=== PATIENT | male | born 1945 | race Caucasian/White ===

== ENCOUNTER 2018-09-15 01:27 | Outpatient (CLI) | payer MEDICARE, BC, SELFPAY ==
--- NOTE | 2018-09-15 09:09 | DI.RAD_ITS ---
SYMPTOM/DIAGNOSIS: KIDNEY STONE, N20.0 KUB: Comparison CT scan is 06/28/17. Comparison xrays of the abdomen are 10/10/16 and . There do appear to be two tiny calcifications overlying the left renal shadow which may represent non obstructing stones. No calcifications are seen overlying the right renal shadow. In the pelvis, there is again seen a 4 mm. calcification overlying the right sacrum. It is essentially unchanged in location. This calcification was present on the xray from 03/17/18 but was not seen on the xray of the abdomen from 10/10/16. This may represent a persistent distal right ureteral stone. The other calcifications seen in the pelvis appear stable and are most consistent with phleboliths. IMPRESSION: Persistent 4 mm. calcification overlying the right sacrum suspicious for a distal ureteral stone. Renal colic CT may be considered for further evaluation.
== END 2018-09-15 01:47 ==
PROVIDERS: Visit Provider Nurse Practitioner Gerontology
DX: N20.0 Calculus of kidney (principal)
CPT/HCPCS: 99213; 74018

== ENCOUNTER 2018-10-26 20:38 | Emergency (ER) | payer MEDICARE, BC, SELFPAY ==
[2018-10-26] VITALS (19 sets, daily range): BP systolic 124–159; BP diastolic 65–100; PULSE 61–77; RESP 11–23; TEMP 36.8; O2SAT 94–99
--- NOTE | 2018-10-26 20:49 | W.ED.GENAD ---
Discharge Plan Disposition Patient Disposition: HOME Condition: Improving Discharge Details Chief Complaint: Allergic Clinical Impression: Allergic reaction Primary Care Provider: [facility] ED Provider: Shira Haynes Home Meds and New Rx's Prescriptions: Continued Vesicare 5 mg tablet 5 mg PO DAILY Qty: 90 RF: 3 aspirin [Aspir-81] 81 MG tablet,delayed release (DR/EC) 81 mg PO DAILY RF: 0 simvastatin 20 MG tablet 20 mg PO DAILY RF: 0 nitroglycerin [Nitrostat] 0.4 MG tablet, sublingual 0.4 mg PO PRN PRNRF: 0 albuterol sulfate 8.5 GM HFA aerosol inhaler 2 puff Inhalation PRN PRNRF: 0 omeprazole 20 MG tablet,delayed release (DR/EC) 20 mg PO DAILY PRNRF: 0 sildenafil [Viagra] 100 MG tablet 50 mg PO PRN PRNRF: 0 cholecalciferol (vitamin D3) [Vitamin D3] 2,000 UNIT capsule 2,000 unit PO DAILY RF: 0 Discharge Instructions Instructions: General Allergic Reaction (ED) Additional Instructions: Labs and EKG are reassuring tonight. Your recurrent symptoms are most consistent with allergic reaction, please keep a journal of symptoms and what you were exposed to/had to eat around the time of onset. If you develop swelling of your tongue, rash, shortness of breath, difficulty breathing or other new/worsening symptoms please seek care urgently once again. Please follow up with primary care next week for reevaluation. Referrals: [facility] [Primary Care Provider] - Medical Decision Making Patient 73-year-old male presenting today with chief complaint of left lower lip swelling. He reports that that the symptoms began early this afternoon. This is the fourth time in the past month that he has had such symptoms. He was seen by his primary care who was concerned that this may have been allergic reaction to medication. He had been on amlodipine but this was stopped. States that this has occurred twice after eating skittles. Is unclear if he had them the other 2 times that he had the symptoms. Patient is concerned that this may be stroke versus cardiac etiology. He denies any chest pain or shortness of breath. He is endorsing feeling dizzy. When I asked about this further, he reports that he feels like he is in a fog. Denies any headache, visual changes. No neurologic deficit is noted on exam. Cranial nerves II through XII are intact. No intraoral lesions. Swelling is localized. No stridor or wheezing. Lungs are clear. I advised that this is most consistent with allergic reaction, likely associated with him eating skittles. However, with his fogginess also obtain baseline labs and EKG EKG reviewed by Dr. Chris, compared to previous. Patient in NSR with rate 68, RBBB. Unchanged from previous. Laboratory evaluation reassuring. Alk phos is slightly elevated but this is been noted previously. Troponin is less than 0.02. Given the length of symptoms, I do not feel that repeat is appropriate at this time. Advised that he keep a log regarding what he is eating and when the symptoms come on. When he has had this previously, symptoms have spontaneously self resolved. We did discuss treatment as the patient drove himself here, and I feel that giving him Benadryl prior to driving would be judicious. I do not feel the patient warrants steroids at this time particularly as this tends a sterile for resolved in a few hours. He was given strict return precautions. Advised that he contact primary care to discuss symptoms tomorrow. All of his questions and concerns were addressed and he is in agreement with this plan. HPI General Mode of arrival: ambulatory. Date/Time Provider Initiated Documentation: 10/26/18 20:48. Limitations to Documentation: no limitations. Information obtained by: patient. History of Present Illness 73 year old M presents to the emergency department with the chief complaint of swelling left lower lip, described as moderate, and is localized to the face. Patient reports no radiation. Patient started experiencing this hour(s) and it has been constant. No relieving factors improve symptom(s), Other factors that worsen symptoms (unknown exposure) . Patient notes other (endorses dizziness); denies chest pain, cough, fever/chills, loss of appetite, nausea/vomiting and rash. Patient did receive the following treatments prior to arrival, none Related Data Home Medications Medication Instructions Recorded Confirmed albuterol sulfate 2 puff INHALATION PRN PRN 09/28/13 10/26/18 aspirin [Aspir-81] 81 mg PO DAILY 09/28/13 10/26/18 nitroglycerin [Nitrostat] 0.4 mg PO PRN PRN 09/28/13 10/26/18 omeprazole 20 mg PO DAILY PRN 09/28/13 10/26/18 simvastatin 20 mg PO DAILY 09/28/13 10/26/18 sildenafil [Viagra] 50 mg PO PRN PRN 10/22/15 10/26/18 cholecalciferol (vitamin D3) 2,000 unit PO DAILY 06/28/17 10/26/18 [Vitamin D3] solifenacin 5 mg tablet 5 mg PO DAILY #90 tab 09/15/18 10/26/18 Previous Rx's Medication Instructions Recorded solifenacin 5 mg tablet 5 mg PO DAILY #90 tab 09/15/18 Allergies Allergy/AdvReac Type Severity Reaction Status Date / Time celecoxib [From Celebrex] AdvReac Severe Severe rash Unverified 03/17/18 14:21 ibuprofen [From Advil] AdvReac Intermediate upset Unverified 03/17/18 14:21 stomach Review of Systems Constitutional Reports as per HPI, Denies chills, Denies fever(s), Denies headache(s) and Denies poor appetite Eyes Reports as per HPI, Denies eye discharge and Denies irritation ENT Reports as per HPI, Denies dry mouth, Denies otalgia, Denies headache(s), Denies hoarseness, Reports lip swelling, Denies mouth lesions, Denies mouth pain, Denies nasal discharge, Denies sore throat, Denies throat swelling and Denies tongue swelling Cardiovascular Reports as per HPI, Denies chest pain, Denies dyspnea and Denies dyspnea on exertion Respiratory Reports as per HPI, Denies cough, Denies dyspnea and Denies dyspnea on exertion Gastrointestinal Reports as per HPI, Denies abdominal pain, Denies change in bowel habits, Denies nausea and Denies vomiting Integumentary/Breasts Reports as per HPI and Denies rash Neurologic Denies headache(s) Allergic/Immunologic Reports lip swelling, Denies throat swelling and Denies tongue swelling ON LICENSE OF [facility] Medical History Atrial fibrillation CAD (coronary artery disease), [place] coronary artery GERD (gastroesophageal reflux disease) Hyperlipidemia DIXIE (obstructive sleep apnea) Surgical History Cholecystectomy Coronary Stent ERCP Hernia Repair, Incisional Social History Smoking/Tobacco Use Status: Former Tobacco Use Exam Const General: cooperative, healthy appearing, comfortable, no acute distress, well developed and well groomed Nutritional Appearance: average body habitus and well nourished Orientation: alert and awake [facility] Head: normal to inspection, normocephalic and atraumatic Ears: hearing grossly normal bilaterally, external ears normal and TM's normal bilaterally General nose exam: external nose normal and nares normal Face and sinus: normal facial exam, sinuses nontender and face symmetric Mouth: oral mucosae normal, lip abnormal (Swelling noted to the left lower lip.), tongue normal, oropharynx normal and moist mucous membranes Teeth and gingiva: dentition normal Throat: posterior oropharynx normal, tonsils normal and uvula midline Eyes General: appearance normal, both eyes and all related structures Neck Neck: normal visual inspection, full ROM, no lymphadenopathy and no meningeal signs Resp Effort & Inspection: normal respiratory effort, able to speak in complete sentences and no respiratory distress Auscultation: clear to auscultation bilaterally, no rales, no rhonchi and no wheezes Cardio Rate: regular rate Rhythm: regular rhythm Heart Sounds: S1 normal and S2 normal Skin General skin exam: no rashes or lesions noted Neuro General: alert and awake Cognition: normal cognition Speech: speech normal Gait: normal gait Psych Appearance: grossly normal and well kempt Mental Status: mental status grossly normal Speech and Movement: speech and movement normal
--- NOTE | 2018-10-26 21:37 | ED.GENADUL_ITS ---
Discharge Plan Disposition Patient Disposition: HOME Condition: Improving Discharge Details Chief Complaint: Allergic Clinical Impression: Allergic reaction Primary Care Provider: [facility],[place] ED Provider: Shira Haynes Home Meds and New Rx's Prescriptions: Continued Vesicare 5 mg tablet 5 mg PO DAILY Qty: 90 RF: 3 aspirin [Aspir-81] 81 MG tablet,delayed release (DR/EC) 81 mg PO DAILY RF: 0 simvastatin 20 MG tablet 20 mg PO DAILY RF: 0 nitroglycerin [Nitrostat] 0.4 MG tablet, sublingual 0.4 mg PO PRN PRNRF: 0 albuterol sulfate 8.5 GM HFA aerosol inhaler 2 puff Inhalation PRN PRNRF: 0 omeprazole 20 MG tablet,delayed release (DR/EC) 20 mg PO DAILY PRNRF: 0 sildenafil [Viagra] 100 MG tablet 50 mg PO PRN PRNRF: 0 cholecalciferol (vitamin D3) [Vitamin D3] 2,000 UNIT capsule 2,000 unit PO DAILY RF: 0 Discharge Instructions Instructions: General Allergic Reaction (ED) Additional Instructions: Labs and EKG are reassuring tonight. Your recurrent symptoms are most consistent with allergic reaction, please keep a journal of symptoms and what you were exposed to/had to eat around the time of onset. If you develop swelling of your tongue, rash, shortness of breath, difficulty breathing or other new/worsening symptoms please seek care urgently once again. Please follow up with primary care next week for reevaluation. Referrals: [facility],[place] [Primary Care Provider] - Medical Decision Making Patient 73-year-old male presenting today with chief complaint of left lower lip swelling. He reports that that the symptoms began early this afternoon. This is the fourth time in the past month that he has had such symptoms. He was seen by his primary care who was concerned that this may have been allergic reaction to medication. He had been on amlodipine but this was stopped. States that this has occurred twice after eating skittles. Is unclear if he had them the other 2 times that he had the symptoms. Patient is concerned that this may be stroke versus cardiac etiology. He denies any chest pain or shortness of breath. He is endorsing feeling dizzy. When I asked about this further, he reports that he feels like he is in a fog. Denies any headache, visual changes. No neurologic deficit is noted on exam. Cranial nerves II through XII are intact. No intraoral lesions. Swelling is localized. No stridor or wheezing. Lungs are clear. I advised that this is most consistent with allergic reaction, likely associated with him eating skittles. However, with his fogginess also obtain baseline labs and EKG EKG reviewed by Dr. Chris, compared to previous. Patient in NSR with rate 68, RBBB. Unchanged from previous. Laboratory evaluation reassuring. Alk phos is slightly elevated but this is been noted previously. Troponin is less than 0.02. Given the length of symptoms, I do not feel that repeat is appropriate at this time. Advised that he keep a log regarding what he is eating and when the symptoms come on. When he has had this previously, symptoms have spontaneously self resolved. We did discuss treatment as the patient drove himself here, and I feel that giving him Benadryl prior to driving would be judicious. I do not feel the patient warrants steroids at this time particularly as this tends a sterile for resolved in a few hours. He was given strict return precautions. Advised that he contact primary care to discuss symptoms tomorrow. All of his questions and concerns were addressed and he is in agreement with this plan. HPI General Mode of arrival: ambulatory . Date/Time Provider Initiated Documentation: 10/26/18 20:48 . Limitations to Documentation: no limitations . Information obtained by: patient . History of Present Illness 73 year old M presents to the emergency department with the chief complaint of swelling left lower lip, described as moderate, and is localized to the face. Patient reports no radiation. Patient started experiencing this hour(s) and it has been constant. No relieving factors improve symptom(s), Other factors that worsen symptoms (unknown exposure) . Patient notes other (endorses dizziness); denies chest pain, cough, fever/chills, loss of appetite, nausea/vomiting and rash. Patient did receive the following treatments prior to arrival, none Related Data Home Medications Medication Instructions Recorded Confirmed albuterol sulfate 2 puff INHALATION PRN PRN 09/28/13 10/26/18 aspirin [Aspir-81] 81 mg PO DAILY 09/28/13 10/26/18 nitroglycerin [Nitrostat] 0.4 mg PO PRN PRN 09/28/13 10/26/18 omeprazole 20 mg PO DAILY PRN 09/28/13 10/26/18 simvastatin 20 mg PO DAILY 09/28/13 10/26/18 sildenafil [Viagra] 50 mg PO PRN PRN 10/22/15 10/26/18 cholecalciferol (vitamin D3) 2,000 unit PO DAILY 06/28/17 10/26/18 [Vitamin D3] solifenacin 5 mg tablet 5 mg PO DAILY #90 tab 09/15/18 10/26/18 Previous Rx's Medication Instructions Recorded solifenacin 5 mg tablet 5 mg PO DAILY #90 tab 09/15/18 Allergies Allergy/AdvReac Type Severity Reaction Status Date / Time celecoxib [From Celebrex] AdvReac Severe Severe rash Unverified 03/17/18 14:21 ibuprofen [From Advil] AdvReac Intermediate upset Unverified 03/17/18 14:21 stomach Review of Systems Constitutional Reports as per HPI, Denies chills, Denies fever(s), Denies headache(s) and Denies poor appetite Eyes Reports as per HPI, Denies eye discharge and Denies irritation ENT Reports as per HPI, Denies dry mouth, Denies otalgia, Denies headache(s), Denies hoarseness, Reports lip swelling, Denies mouth lesions, Denies mouth pain, Denies nasal discharge, Denies sore throat, Denies throat swelling and Denies tongue swelling Cardiovascular Reports as per HPI, Denies chest pain, Denies dyspnea and Denies dyspnea on exertion Respiratory Reports as per HPI, Denies cough, Denies dyspnea and Denies dyspnea on exertion Gastrointestinal Reports as per HPI, Denies abdominal pain, Denies change in bowel habits, Denies nausea and Denies vomiting Integumentary/Breasts Reports as per HPI and Denies rash Neurologic Denies headache(s) Allergic/Immunologic Reports lip swelling, Denies throat swelling and Denies tongue swelling [facility] Medical History Atrial fibrillation CAD (coronary artery disease), [place] coronary artery GERD (gastroesophageal reflux disease) Hyperlipidemia DIXIE (obstructive sleep apnea) Surgical History Cholecystectomy Coronary Stent ERCP Hernia Repair, Incisional Social History Smoking/Tobacco Use Status: Former Tobacco Use Exam Const General: cooperative, healthy appearing, comfortable, no acute distress, well developed and well groomed Nutritional Appearance: average body habitus and well nourished Orientation: alert and awake [facility] Head: normal to inspection, normocephalic and atraumatic Ears: hearing grossly normal bilaterally, external ears normal and TM's normal bilaterally General nose exam: external nose normal and nares normal Face and sinus: normal facial exam, sinuses nontender and face symmetric Mouth: oral mucosae normal, lip abnormal (Swelling noted to the left lower lip.), tongue normal, oropharynx normal and moist mucous membranes Teeth and gingiva: dentition normal Throat: posterior oropharynx normal, tonsils normal and uvula midline Eyes General: appearance normal, both eyes and all related structures Neck Neck: normal visual inspection, full ROM, no lymphadenopathy and no meningeal signs Resp Effort & Inspection: normal respiratory effort, able to speak in complete sentences and no respiratory distress Auscultation: clear to auscultation bilaterally, no rales, no rhonchi and no wheezes Cardio Rate: regular rate Rhythm: regular rhythm Heart Sounds: S1 normal and S2 normal Skin General skin exam: no rashes or lesions noted Neuro General: alert and awake Cognition: normal cognition Speech: speech normal Gait: normal gait Psych Appearance: grossly normal and well kempt Mental Status: mental status grossly normal Speech and Movement: speech and movement normal
[2018-10-26 21:51] LABS: Abs Immature Grans 0.02 k/cumm (0.0-0.09); Absolute Basophil Count 0.03 k/cumm (0.0-0.2); Absolute Eosinophil Count 0.17 k/cumm (0.0-0.7); Absolute Lymphocyte Count 2.34 k/cumm (1.2-3.4); Absolute Monocyte Count 0.73 k/cumm (0.11-0.7); Absolute Neutrophil Count 3.53 k/cumm (1.2-6.7); Basophils % 0.4; Eosinophils % 2.5; HCT 45.6 % (40.0-50.0); HGB 15.9 g/dL (13.5-17.5); Immature Grans % 0.3; Lymphocytes % 34.3; Mean Corp. HGB Concentration 34.9 g/dL (32.0-36.0); Mean Corpuscular Volume 91.8 fL (80-95); Mean Platelet Volume 9.5 fL (8.0-11.0); Monocytes % 10.7; Neutrophils % 51.8; Platelet Count 190 x1000/uL (130-400); RBC 4.97 m/cumm (4.50-6.00); RBC Distribution Width 12.4 % (11.8-14.1); White Blood Cell Count 6.82 k/cumm (4.4-10.8)
[2018-10-26 22:09] LABS: ALT 27 U/L (12-78); AST 15 U/L (15-37); Albumin 3.5 g/dL (3.4-5.0); Alkaline Phosphatase 127 U/L (46-116); Anion Gap 6.4 mmol/L (3-11); BUN 19 mg/dL (7-18); Bilirubin, Total 0.5 mg/dL (0.2-1.0); CO2 29.6 mmol/L (21.0-32.0); CREATININE 1.01 mg/dL (0.70-1.30); Calcium 8.5 mg/dL (8.5-10.1); Chloride 105 mmol/L (98-107); Glucose 96 mg/dL (70-100); Potassium 4.2 mmol/L (3.5-5.1); Sodium 141 mmol/L (136-145); Total Protein 6.7 g/dL (6.4-8.2)
[2018-10-26 22:18] LABS: Troponin I < 0.02 ng/mL (0.00-0.06)
== END 2018-10-26 22:40 | disposition home or self-care (01) ==
PROVIDERS: Emergency Provider Physician Assistant
DX: T78.40XA Allergy, unspecified, initial encounter (principal); R22.0 Localized swelling, mass and lump, head; R42 Dizziness and giddiness
CPT/HCPCS: 36415; 80053; 93005; 99284; 83735; 84439; 84443; 84484; 85025; 93010

== ENCOUNTER 2019-02-02 12:06 | Emergency (ER) | payer MEDICARE, BC, SELFPAY ==
--- NOTE | 2019-02-02 12:11 | W.ED.GENAD ---
Discharge Plan Disposition Patient Disposition: HOME Condition: Stable Discharge Details Chief Complaint: FlankPain Clinical Impression: Calculus of right ureter Primary Care Provider: [place], [place] ED Provider: Marlon Fang Home Meds and New Rx's Prescriptions: New oxycodone 5 mg tablet 5 mg PO Q6H PRN (Reason: pain) Qty: 10 RF: 0 ondansetron 4 mg tablet,disintegrating 4 mg PO TID PRN (Reason: nausea and vomiting) 5 Days Qty: 20 RF: 0 tamsulosin [Flomax] 0.4 mg capsule 0.4 mg PO DAILY Qty: 14 RF: 0 No Action Vesicare 5 mg tablet 5 mg PO DAILY Qty: 90 RF: 3 simvastatin 20 MG tablet 20 mg PO DAILY RF: 0 nitroglycerin [Nitrostat] 0.4 MG tablet, sublingual 0.4 mg PO PRN PRNRF: 0 albuterol sulfate 8.5 GM HFA aerosol inhaler 2 puff Inhalation PRN PRNRF: 0 omeprazole 20 MG tablet,delayed release (DR/EC) 20 mg PO PRN PRNRF: 0 sildenafil [Viagra] 100 MG tablet 50 mg PO PRN PRNRF: 0 cholecalciferol (vitamin D3) [Vitamin D3] 2,000 UNIT capsule 2,000 unit PO DAILY RF: 0 clopidogrel [Plavix] 75 mg Tablet 75 mg PO DAILY AM RF: 0 vit [id number] 100 unit- 12.5 mg Capsule RF: 0 Discharge Instructions Instructions: Kidney Stones (ED) Additional Instructions: Follow up with your urologist if you have fevers, persistent vomit or uncontrolled pain despite medications return to the emergency department Medical Decision Making 73 yo male who states he has a hx of kidney stones comes in with right mid and lower back pain that started acutely this morning and feels similar to his prior kidney stones. Denies any pain now and has had nausae but no vomit. No fevers and has no abdominal tenderness, no cva tenderness on exam or rashes, no midline back pain. Normal vascular exam. Will obtain ct to eval for possible kidney stone. given normal vascular exam and pain similar to prior kidney stones doubt entities such as dissection and no saddle anesthesia or other findings to suggest cauda equina ct shows distal right kidney stone on my read. He remains comfortable. If radiology agrees and no other findings will d/c and have him f/u with urology. no infectious symptoms so do not feel abx indicated Differential Diagnosis kidney stone, back spasm Imaging Data Radiologic Study: Attestation: I personally reviewed and interpreted this imaging study as follows: Imaging: CT Scan Radiologist's impression: right distal uvj stone, 5mm per Dr. andrews Lab Data Lab results reviewed: Yes I reviewed the patient's lab results. HPI General Mode of arrival: ambulatory. Date/Time Provider Initiated Documentation: 02/02/19 12:08. Limitations to Documentation: no limitations. Information obtained by: patient. History of Present Illness 73 year old M presents to the emergency department with the chief complaint of right flank pain, described as moderate, Quality is described as stabbing, and is localized to the back and right. Patient reports no radiation. Patient started experiencing this hour(s) (4) and it has been intermittent. No relieving factors improve symptom(s), No exacerbating factors reported . Patient notes no other symptoms.. Patient did receive the following treatments prior to arrival, none Related Data Home Medications Medication Instructions Recorded Confirmed albuterol sulfate 2 puff INHALATION PRN PRN 09/28/13 10/26/18 nitroglycerin [Nitrostat] 0.4 mg PO PRN PRN 09/28/13 02/02/19 omeprazole 20 mg PO PRN PRN 09/28/13 02/02/19 simvastatin 20 mg PO DAILY 09/28/13 02/02/19 sildenafil [Viagra] 50 mg PO PRN PRN 10/22/15 02/02/19 cholecalciferol (vitamin D3) 2,000 unit PO DAILY 06/28/17 02/02/19 [Vitamin D3] solifenacin 5 mg tablet 5 mg PO DAILY #90 tab 09/15/18 02/02/19 clopidogrel [Plavix] 75 mg PO DAILY AM 02/02/19 02/02/19 ondansetron 4 mg PO TID PRN 5 Days #20 tab 02/02/19 oxycodone 5 mg PO Q6H PRN #10 tab 02/02/19 tamsulosin [Flomax] 0.4 mg PO DAILY #14 cap 02/02/19 vit [id number] 02/02/19 Previous Rx's Medication Instructions Recorded solifenacin 5 mg tablet 5 mg PO DAILY #90 tab 09/15/18 ondansetron 4 mg PO TID PRN 5 Days #20 tab 02/02/19 oxycodone 5 mg PO Q6H PRN #10 tab 02/02/19 tamsulosin [Flomax] 0.4 mg PO DAILY #14 cap 02/02/19 Allergies Allergy/AdvReac Type Severity Reaction Status Date / Time celecoxib [From Celebrex] AdvReac Severe Severe rash Unverified 02/02/19 12:28 ibuprofen [From Advil] AdvReac Intermediate upset Unverified 02/02/19 12:28 stomach General EVELYNE: 3 Review of Systems Review of Systems All systems reviewed & are unremarkable except as noted in HPI and below Constitutional Denies chills, Denies fever(s) and Denies weakness ENT Denies change in voice Cardiovascular Denies chest pain and Denies dyspnea Respiratory Denies cough and Denies dyspnea Gastrointestinal Denies abdominal pain and Denies vomiting Integumentary/Breasts Denies rash Neurologic Denies weakness [facility] Medical History Atrial fibrillation CAD (coronary artery disease), [place] coronary artery GERD (gastroesophageal reflux disease) Hyperlipidemia DIXIE (obstructive sleep apnea) Surgical History Cholecystectomy Coronary Stent ERCP Hernia Repair, Incisional Social History Smoking/Tobacco Use Status: Former Tobacco Use Alcohol Intake: current Alcohol Intake frequency: a few times a week Alcohol type: wine Drug use: Never Do you feel safe in your relationship?: Yes Exam Const General: no acute distress Orientation: alert [facility] Head: normal to inspection Ears: external ears normal General nose exam: external nose normal Mouth: moist mucous membranes Eyes General: appearance normal, both eyes and all related structures Neck Neck: normal visual inspection Resp Effort & Inspection: normal respiratory effort and able to speak in complete sentences Cardio Rate: regular rate Back/Spine/Pelvis Back: no CVA tenderness Skin General skin exam: no rashes or lesions noted Neuro General: alert and oriented x3 Extrem General: normal to inspection Psych Mental Status: mental status grossly normal
--- NOTE | 2019-02-02 12:16 | DI.CT_ITS ---
SYMPTOMS/DIAGNOSIS: RIGHT FLANK PAIN RENAL COLIC CT: Renal colic CT was performed according to protocol. Comparison is 06/28/17. No acute findings are seen in the lung bases. The lack of IV contrast does limit evaluation of the abdominal pelvic organs. The visualized unenhanced liver is unremarkable as are the spleen, pancreas and adrenal glands. The patient is status post cholecystectomy. There is pneumobilia again noted and unchanged. There are nonobstructing stones again seen in the left kidney. There is a hypodense lesion seen at the inferior aspect of the left kidney which is unchanged and likely reflects a cyst. This was present on the ultrasound of the abdomen from 12/08/16. There is a 5 mm stone at the right ureterovesicular junction causing mild hydronephrosis. The urinary bladder is otherwise unremarkable. The reproductive organs are unremarkable. There is atherosclerosis of the abdominal aorta but no aneurysmal dilatation. No significant abdominal or pelvic adenopathy, ascites or pneumoperitoneum is seen. There is a small fat containing left inguinal hernia. There is diverticulosis of the colon but no evidence of acute diverticulitis. The bowel is otherwise unremarkable. There is no evidence of an acute appendicitis. Degenerative changes are seen in the spine. IMPRESSION: 5 mm right UVJ stone causing mild hydronephrosis. The findings were discussed with Dr. Fang of the emergency department on the date of the examination.
--- NOTE | 2019-02-02 12:19 | ED.GENADUL_ITS ---
Discharge Plan Disposition Patient Disposition: HOME Condition: Stable Discharge Details Chief Complaint: FlankPain Clinical Impression: Calculus of right ureter Primary Care Provider: [place] ED Provider: Marlon Fang Home Meds and New Rx's Prescriptions: New oxycodone 5 mg tablet 5 mg PO Q6H PRN (Reason: pain) Qty: 10 RF: 0 ondansetron 4 mg tablet,disintegrating 4 mg PO TID PRN (Reason: nausea and vomiting) 5 Days Qty: 20 RF: 0 tamsulosin [Flomax] 0.4 mg capsule 0.4 mg PO DAILY Qty: 14 RF: 0 No Action Vesicare 5 mg tablet 5 mg PO DAILY Qty: 90 RF: 3 simvastatin 20 MG tablet 20 mg PO DAILY RF: 0 nitroglycerin [Nitrostat] 0.4 MG tablet, sublingual 0.4 mg PO PRN PRNRF: 0 albuterol sulfate 8.5 GM HFA aerosol inhaler 2 puff Inhalation PRN PRNRF: 0 omeprazole 20 MG tablet,delayed release (DR/EC) 20 mg PO PRN PRNRF: 0 sildenafil [Viagra] 100 MG tablet 50 mg PO PRN PRNRF: 0 cholecalciferol (vitamin D3) [Vitamin D3] 2,000 UNIT capsule 2,000 unit PO DAILY RF: 0 clopidogrel [Plavix] 75 mg Tablet 75 mg PO DAILY AM RF: 0 vit [id number] 100 unit- 12.5 mg Capsule RF: 0 Discharge Instructions Instructions: Kidney Stones (ED) Additional Instructions: Follow up with your urologist if you have fevers, persistent vomit or uncontrolled pain despite medications return to the emergency department Medical Decision Making 73 yo male who states he has a hx of kidney stones comes in with right mid and lower back pain that started acutely this morning and feels similar to his prior kidney stones. Denies any pain now and has had nausae but no vomit. No fevers and has no abdominal tenderness, no cva tenderness on exam or rashes, no midline back pain. Normal vascular exam. Will obtain ct to eval for possible kidney stone. given normal vascular exam and pain similar to prior kidney stones doubt entities such as dissection and no saddle anesthesia or other findings to suggest cauda equina ct shows distal right kidney stone on my read. He remains comfortable. If radiology agrees and no other findings will d/c and have him f/u with urology. no infectious symptoms so do not feel abx indicated Differential Diagnosis kidney stone, back spasm Imaging Data Radiologic Study: Attestation: I personally reviewed and interpreted this imaging study as follows: Imaging: CT Scan Radiologist's impression: right distal uvj stone, 5mm per Dr. andrews Lab Data Lab results reviewed: Yes I reviewed the patient's lab results. HPI General Mode of arrival: ambulatory . Date/Time Provider Initiated Documentation: 02/02/19 12:08 . Limitations to Documentation: no limitations . Information obtained by: patient . History of Present Illness 73 year old M presents to the emergency department with the chief complaint of right flank pain, described as moderate, Quality is described as stabbing, and is localized to the back and right. Patient reports no radiation. Patient started experiencing this hour(s) (4) and it has been intermittent. No relieving factors improve symptom(s), No exacerbating factors reported . Patient notes no other symptoms.. Patient did receive the following treatments prior to arrival, none Related Data Home Medications Medication Instructions Recorded Confirmed albuterol sulfate 2 puff INHALATION PRN PRN 09/28/13 10/26/18 nitroglycerin [Nitrostat] 0.4 mg PO PRN PRN 09/28/13 02/02/19 omeprazole 20 mg PO PRN PRN 09/28/13 02/02/19 simvastatin 20 mg PO DAILY 09/28/13 02/02/19 sildenafil [Viagra] 50 mg PO PRN PRN 10/22/15 02/02/19 cholecalciferol (vitamin D3) 2,000 unit PO DAILY 06/28/17 02/02/19 [Vitamin D3] solifenacin 5 mg tablet 5 mg PO DAILY #90 tab 09/15/18 02/02/19 clopidogrel [Plavix] 75 mg PO DAILY AM 02/02/19 02/02/19 ondansetron 4 mg PO TID PRN 5 Days #20 tab 02/02/19 oxycodone 5 mg PO Q6H PRN #10 tab 02/02/19 tamsulosin [Flomax] 0.4 mg PO DAILY #14 cap 02/02/19 vit [id number] 02/02/19 Previous Rx's Medication Instructions Recorded solifenacin 5 mg tablet 5 mg PO DAILY #90 tab 09/15/18 ondansetron 4 mg PO TID PRN 5 Days #20 tab 02/02/19 oxycodone 5 mg PO Q6H PRN #10 tab 02/02/19 tamsulosin [Flomax] 0.4 mg PO DAILY #14 cap 02/02/19 Allergies Allergy/AdvReac Type Severity Reaction Status Date / Time celecoxib [From Celebrex] AdvReac Severe Severe rash Unverified 02/02/19 12:28 ibuprofen [From Advil] AdvReac Intermediate upset Unverified 02/02/19 12:28 stomach General EVELYNE: 3 Review of Systems Review of Systems All systems reviewed & are unremarkable except as noted in HPI and below Constitutional Denies chills, Denies fever(s) and Denies weakness ENT Denies change in voice Cardiovascular Denies chest pain and Denies dyspnea Respiratory Denies cough and Denies dyspnea Gastrointestinal Denies abdominal pain and Denies vomiting Integumentary/Breasts Denies rash Neurologic Denies weakness [facility] Medical History Atrial fibrillation CAD (coronary artery disease), [place] coronary artery GERD (gastroesophageal reflux disease) Hyperlipidemia DIXIE (obstructive sleep apnea) Surgical History Cholecystectomy Coronary Stent ERCP Hernia Repair, Incisional Social History Smoking/Tobacco Use Status: Former Tobacco Use Alcohol Intake: current Alcohol Intake frequency: a few times a week Alcohol type: wine Drug use: Never Do you feel safe in your relationship?: Yes Exam Const General: no acute distress Orientation: alert HENMT Head: normal to inspection Ears: external ears normal General nose exam: external nose normal Mouth: moist mucous membranes Eyes General: appearance normal, both eyes and all related structures Neck Neck: normal visual inspection Resp Effort & Inspection: normal respiratory effort and able to speak in complete sentences Cardio Rate: regular rate Back/Spine/Pelvis Back: no CVA tenderness Skin General skin exam: no rashes or lesions noted Neuro General: alert and oriented x3 Extrem General: normal to inspection Psych Mental Status: mental status grossly normal
[2019-02-02 12:22] VITALS: BP 150/88; PULSE 83; RESP 16; O2SAT 97
[2019-02-02 12:24] LABS: Bilirubin Negative (Negative); Blood Moderate (Negative); Clarity Clear; Glucose Negative (Negative); Ketones Negative (Negative); Leukocyte Esterase Negative (Negative); Nitrite Negative (Negative); Specific Gravity 1.025 (1.005-1.025)
[2019-02-02] MEDS: Normal Saline 1,000 ML 1000 ML IV (12:31)
[2019-02-02 12:32] LABS: Abs Immature Grans 0.01 k/cumm (0.0-0.09); Absolute Basophil Count 0.02 k/cumm (0.0-0.2); Absolute Eosinophil Count 0.05 k/cumm (0.0-0.7); Absolute Lymphocyte Count 1.41 k/cumm (1.2-3.4); Absolute Neutrophil Count 3.88 k/cumm (1.2-6.7); Basophils % 0.3; Eosinophils % 0.8; HCT 43.7 % (40.0-50.0); HGB 15.5 g/dL (13.5-17.5); Immature Grans % 0.2; Lymphocytes % 23.2; Mean Corp. HGB Concentration 35.5 g/dL (32.0-36.0); Mean Corpuscular Hemoglobin 32.2 pg (27.0-33.0); Mean Corpuscular Volume 90.9 fL (80-95); Mean Platelet Volume 9.5 fL (8.0-11.0); Monocytes % 11.5; Platelet Count 196 x1000/uL (130-400); RBC 4.81 m/cumm (4.50-6.00); RBC Distribution Width 12.5 % (11.8-14.1); White Blood Cell Count 6.07 k/cumm (4.4-10.8)
[2019-02-02 12:38] LABS: Bacteria Negative HPF (Negative); Casts Negative LPF (Negative); Crystals Negative HPF (Negative); Epithelial Cells Negative HPF (Negative); Mucus Trace (Negative); RBC >50 (0-2)
[2019-02-02 12:39] LABS: C & S Indicated? No
[2019-02-02 12:44] LABS: ALT 28 U/L (12-78); AST 16 U/L (15-37); Albumin 3.6 g/dL (3.4-5.0); Alkaline Phosphatase 85 U/L (46-116); Anion Gap 8.5 mmol/L (3-11); BUN 16 mg/dL (7-18); CO2 26.5 mmol/L (21.0-32.0); CREATININE 1.05 mg/dL (0.70-1.30); Calcium 8.3 mg/dL (8.5-10.1); Chloride 106 mmol/L (98-107); Glucose 88 mg/dL (70-100); Sodium 141 mmol/L (136-145); Total Protein 6.7 g/dL (6.4-8.2)
[2019-02-02 12:45] LABS: PTT Activated 22.9 sec (21.0-31.4)
[2019-02-02 13:00] VITALS: BP 136/71; PULSE 70; RESP 18; TEMP 36.8; O2SAT 99
== END 2019-02-02 13:18 | disposition home or self-care (01) ==
LOC: ER 13:32
PROVIDERS: Emergency Provider Emergency Medicine; PCP Internal Medicine Geriatric Medicine
DX: N20.1 Calculus of ureter (principal); Z87.442 Personal history of urinary calculi; R11.2 Nausea with vomiting, unspecified
CPT/HCPCS: 36415; 80053; 96360; 99284; 74176; 81003; 81015; 85025; 85610; 85730

== ENCOUNTER 2019-03-22 00:37 | Outpatient (CLI) | payer MEDICARE, BC, SELFPAY ==
--- NOTE | 2019-03-22 09:14 | DI.RAD_ITS ---
SYMPTOM/DIAGNOSIS: FOLLOW UP KIDNEY STONE KUB: Comparison is made with CT dated February 02, 2019 The previously noted right UVJ calculus is no longer seen. A phlebolith is again noted in the right lower pelvis. The bowel gas pattern is unremarkable. IMPRESSION: No visible urinary tract calculi.
== END 2019-03-22 00:57 ==
PROVIDERS: PCP Internal Medicine Geriatric Medicine; Visit Provider Nurse Practitioner Gerontology
DX: N20.1 Calculus of ureter (principal); R53.83 Other fatigue
CPT/HCPCS: 74018; 99213

== ENCOUNTER 2019-09-23 02:22 | Outpatient (CLI) | payer MEDICARE, BC, SELFPAY ==
--- NOTE | 2019-09-23 08:38 | DI.RAD_ITS ---
EXAM: XR ABDOMEN FLAT PLATE CLINICAL HISTORY: monitor stone,CALCULUS OF RT URETER, N20.1 TECHNIQUE: COMPARISON: XR ABDOMEN FLAT PLATE from 03/22/2019 FINDINGS: Two views were obtained. Bowel gas pattern is unremarkable. No definite urinary tract calcification s seen. IMPRESSION:
== END 2019-09-23 02:42 ==
PROVIDERS: PCP Internal Medicine Geriatric Medicine; Visit Provider Urology
DX: N20.1 Calculus of ureter (principal); R35.0 Frequency of micturition; N39.41 Urge incontinence
CPT/HCPCS: 81003; 99213; 74018

== ENCOUNTER 2019-10-11 01:22 | Outpatient (CLI) | payer MEDICARE, BC, SELFPAY ==
--- NOTE | 2019-10-11 12:59 | DI.US_ITS ---
EXAM: US RENAL CLINICAL HISTORY: r/o hydronephrosis, RENAL AND URETERIC CALCULUS, N20.2 TECHNIQUE: Ultrasound performed using standard protocol. COMPARISON: No exams were available for comparison FINDINGS: The right kidney measures 11.4 cm in length. The left kidney measures 11.5 cm in length. The renal parenchymal thickness and echogenicity appears normal. There is a simple appearing cyst at the lower pole of left kidney measuring 2.2 cm in maximal dimension. No hydronephrosis is demonstrated in eit her kidney. No calcifications are visible. The prevoid bladder volume measured 77 cc. Both uretera l jets were visualized. There is no postvoid residual. IMPRESSION: No visible hydronephrosis or renal calculi.
== END 2019-10-11 01:42 ==
PROVIDERS: PCP Internal Medicine Geriatric Medicine; Visit Provider Urology
DX: N20.2 Calculus of kidney with calculus of ureter (principal); N28.1 Cyst of kidney, acquired
CPT/HCPCS: 76770; 99212

== ENCOUNTER → 2020-05-29 09:22 | Outpatient (BNVA) | payer MEDICARE, BC, SELFPAY | PROVIDERS: PCP Internal Medicine Geriatric Medicine; Referring Provider Internal Medicine Geriatric Medicine; Visit Provider Urology | DX: N20.0 Calculus of kidney (principal); R53.83 Other fatigue; R10.9 Unspecified abdominal pain | CPT/HCPCS: 99213 ==

== ENCOUNTER 2020-06-08 04:08 | Outpatient (CLI) | payer MEDICARE, BC, SELFPAY ==
--- NOTE | 2020-06-08 07:15 | DI.CT_ITS ---
EXAM: CT ABDOMEN PELVIS W CLINICAL HISTORY: r/o mass, ABD PAIN, R10.9 TECHNIQUE: Imaging Protocol: Axial computed tomography images with coronal and sagittal reformatted images were created and reviewed CONTRAST MATERIAL: Intravenous: Omnipaque 350 Contrast volume:100 mL Oral: Yes COMPARISON: CT RENAL COLIC WO CONTRAST from 06/28/[address] renal colic wo from 02/02/2019 FINDINGS: ABDOMEN: Lung Bases: Normal where visualized. Liver: Normal density. No measurable mass. Portal, Superior Mesenteric, and Splenic Veins: Unremarkable. Gallbladder and Biliary Tract: Status post cholecystectomy. No biliary ductal dilatation. Pneumobil ia is again seen. Pancreas: Normal density, no abnormal calcifications or inflammatory process. Spleen: Normal. Adrenals: No masses seen. Kidneys: Normal size, contour and axis. Nonobstructing stones in the left kidney. 2.2 cm simple left renal cyst. Abdominal Aorta: Abdominal portion non-dilated. Atherosclerosis. Bowel: No obstruction or bowel wall thickening. No evidence of acute appendicitis. Small hiatal lizandro ia. Duodenal diverticulum. Colonic diverticulosis but no evidence of acute diverticulitis. Peritoneal Cavity: No ascites, collection or mesenteric inflammatory response. Small fat containing u mbilical hernia. Small anterior abdominal wall hernia which appears stable compared to multiple prio r examinations. Lymph Nodes: Within normal limits. Bones: Degenerative changes. Old T8 compression fracture deformity. Soft Tissues: Unremarkable. PELVIS: Bladder: Symmetric distention, no gross wall thickening. Reproductive Organs: Unremarkable as visualized. Lymph Nodes: Within normal limits. Bones: Degenerative changes. IMPRESSION: 1. Left nephrolithiasis. No hydronephrosis. 2. Left renal cyst. 3. Colonic diverticulosis but no evidence of acute diverticulitis. RADIATION DOSE DELIVERED: Total DLP DATA REPOSITORY: All CT scans at this facility are submitted to the National Radiology Data Registry (NRDR) Dose Index Registry (DIR) with the [employer] [place] [employer] (ACR). RADIATION OPTIMIZATION: All CT scans at this facility use at least one of these dose optimization te chniques: automated exposure control; mA and/or kV adjustment per patient size (includes targeted exa ms where dose is matched to clinical indication); or iterative reconstruction.
[2020-06-08 09:34] LABS: HCT 45.2 % (40.0-50.0); HGB 15.7 g/dL (13.5-17.5); MCH 32.2 pg (27.0-33.0); MCHC 34.7 % (32.0-36.0); MCV 92.8 fL (80-95); MPV 9.3 fL (8.0-11.0); Platelet Count 185 10^3/uL (130-400); RBC 4.87 10^6/uL (4.36-5.78); RDW 11.9 % (11.8-14.1); RDW-SD 40.4 fL
[2020-06-08 09:46] LABS: ALT 33 U/L (16-63); AST 20 U/L (15-37); Albumin 3.6 g/dL (3.4-5.0); Alkaline Phosphatase 106 U/L (46-116); Anion Gap 4.8 mmol/L (3-11); BUN 14 mg/dL (7-18); Bilirubin, Total 1.1 mg/dL (0.2-1.0); CO2 30.2 mmol/L (21.0-32.0); CREATININE 1.13 mg/dL (0.70-1.30); Calcium 8.6 mg/dL (8.5-10.1); Chloride 105 mmol/L (98-107); Glucose 123 mg/dL (74-106); Potassium 4.4 mmol/L (3.5-5.1); Sodium 140 mmol/L (136-145); Total Protein 6.5 g/dL (6.4-8.2)
[2020-06-08] MEDS: Omnipaque 350 MG/ML 100 ML BTL IV (11:22)
[2020-06-08] MEDS: Normal Saline - Diluent 50 ML VIAL IV (11:24)
[2020-06-08] MEDS: Normal Saline Flush 10 ML SYR IVP (11:25)
[2020-06-08 17:18] LABS: PSA, Diagnostic 1.4 ng/mL (0.0-6.5)
[2020-06-14 00:20] LABS: Testosterone, Total 481 ng/dL (240-950)
== END 2020-06-08 04:28 ==
PROVIDERS: PCP Internal Medicine Geriatric Medicine; Visit Provider Urology
DX: N20.0 Calculus of kidney (principal); N28.1 Cyst of kidney, acquired; K57.30 Diverticulosis of large intestine without perforation or abscess without bleeding
CPT/HCPCS: 80053; 84403; 85027; 99213; 74177; 84153; J3490

== ENCOUNTER → 2020-07-06 10:34 | Outpatient (BNVA) | payer MEDICARE, BC, SELFPAY | PROVIDERS: PCP Internal Medicine Geriatric Medicine; Referring Provider Internal Medicine Geriatric Medicine; Visit Provider Urology | DX: R15.9 Full incontinence of feces (principal); N20.0 Calculus of kidney | CPT/HCPCS: 99213; 99442 ==

== ENCOUNTER 2021-05-09 08:41 | Emergency (ER) | payer MEDICARE, BC, SELFPAY ==
[2021-05-09] VITALS (41 sets, daily range): BP systolic 117–144; BP diastolic 70–91; PULSE 67–87; RESP 8–25; TEMP 36.6–36.7; O2SAT 92–97
--- NOTE | 2021-05-09 08:30 | RT.EKG_ITS ---
APPROVED REPORT Exam: Resting ECG Reason for Exam: afib? Patient Location: E HR:80 bpm ECG Measurements Heart Rate 80 AXIS AK 175 P 31 QRSd 130 QRS -40 QT 389 T -25 QTc 449 Conclusion Sinus rhythm. RBBB Inferior Q , II III aVF - OLD
--- NOTE | 2021-05-09 08:45 | DI.RAD_ITS ---
Exam(s) XR PORTABLE CHEST AP EXAM: XR PORTABLE CHEST AP CLINICAL HISTORY: palpations/sob. TECHNIQUE: 2D digital imaging was performed. COMPARISON: CR CHEST 2 VIEWS PA,LAT from 09/03/2017 FINDINGS: AP portable lordotic view of the chest reveals normal heart size. Chest leads in place. Mediastinum unremarkable. Lungs are clear. No infiltrates nor obvious pleural effusions. Appearance of the right hemidiaphragm is unchanged. IMPRESSION: No acute pulmonary findings on this single AP portable view of the chest. DATA REPOSITORY: RADIATION DOSE DELIVERED: All CT scans at this facility use at least one of these dose optimization techniques: automated exposure control; mA and/or kV adjustment per patient size (includes targeted e xams where dose is matched to clinical indication); or iterative reconstruction.
--- NOTE | 2021-05-09 09:11 | ED.GENADUL_ITS ---
Discharge Plan Disposition Patient Disposition: HOME Condition: Stable Discharge Details Clinical Impression: Chest pain, Palpitation Primary Care Provider: Abdulaziz Melchor ED Provider: Abdulaziz Mack Home Meds and New Rx's Prescriptions: Continued solifenacin [Vesicare] 5 mg tablet 5 mg PO DAILY Qty: 90 RF: 3 hydrocortisone-pramoxine 2.5-1 % (4g) cream 1 applic [place] QID PRN Qty: 4 RF: 2 tamsulosin [Flomax] 0.4 mg capsule 0.4 mg PO DAILY Qty: 90 RF: 4 Eliquis 5 mg tablet 5 mg PO BID RF: 0 simvastatin 20 MG tablet 20 mg PO DAILY RF: 0 nitroglycerin [Nitrostat] 0.4 MG tablet, sublingual 0.4 mg PO PRN PRNRF: 0 albuterol sulfate 8.5 GM HFA aerosol inhaler 2 puff Inhalation PRN PRNRF: 0 omeprazole 20 MG tablet,delayed release (DR/EC) 20 mg PO PRN PRNRF: 0 sildenafil [Viagra] 100 MG tablet 50 mg PO PRN PRNRF: 0 cholecalciferol (vitamin D3) [Vitamin D3] 2,000 UNIT capsule 2,000 unit PO DAILY RF: 0 clopidogrel [Plavix] 75 mg Tablet 75 mg PO DAILY AM RF: 0 vit [id number] 100 unit- 12.5 mg Capsule RF: 0 Discharge Instructions Instructions: Chest Pain (ED), Heart Palpitations (ED) Additional Instructions: Work-up in the ER does not reveal any obvious emergent process. Admission was offered but declined. Please watch for new or worsening symptoms and return to the ER for any concerns. Otherwise I recommend reaching out your primary care provider and drive in waiter/waitress to discuss your ER visit, symptoms, and need for outpatient reevaluation. Medical Decision Making This is a 75-year-old male presents to the ER reporting left-sided chest pain, sharp, stabbing, shortness of breath, palpitations, nausea, vomiting, generalized weakness that began around 2:00 this morning. Only complaint now is that of generalized weakness. Patient also is concerned about potential having contracted Covid over the weekend because he was at a , he is vaccinated. Clinically he appears well, nontoxic, he is hemodynamically stable, on monitor appears to be in a sinus rhythm. Will initiate cardiac work-up including a D-dimer, BNP given his shortness of breath, chest x-ray, test for Covid, and give a single dose aspirin. Patient and his are comfortable with this plan and have no additional questions or concerns at this time. Initial laboratory values are unremarkable for obvious emergent process. Given the normal D-dimer will not pursue CTA. Patient remains asymptomatic. Bilirubin is elevated, when comparing previous it looks to be elevated on a consistent basis, patient has had a cholecystectomy. BNP 141. Chest x-ray read by me as negative. He denies any cough, shortness of breath, chest pain. Covid pending. Patient agreeable to awaiting repeat troponin and EKG Rapid Covid negative Repeat troponin remains less than 0.05. Repeat EKG performed at 1156, please see official report by Dr. Arevalo. Sinus rhythm, ventricular rate of 73, right bundle branch block. No STEMI. Discussed work-up with patient, he reports feeling generalized weakness but otherwise is asymptomatic. He was monitored in the ER, no evidence of A. fib, arrhythmia, etc. given his age and, but it is we discussed observation admission but patient declines. Patient states that he is scheduled to be seen by his cardiology team on the , would prefer to go home and follow-up as an outpatient but will return to the ER for new or worsening symptoms. Strict discharge and return precautions given. This documentation was generated using [employer] dictation system, please disregard any oddities of phrase or misspellings. Imaging Data Radiologic Study: Attestation: I personally reviewed and interpreted this imaging study as follows: Imaging: X-Ray Radiologist's impression: EXAM XR PORTABLE CHEST AP CLINICAL HISTORY [ palpations/sob. ] [] TECHNIQUE 2D digital imaging was performed. COMPARISON [CR CHEST 2 VIEWS PA,LAT from 09/03/2017] [] FINDINGS [AP portable lordotic view of the chest reveals normal heart size. Chest leads in place. Mediastinum unremarkable.] [Lungs are clear. No infiltrates nor obvious pleural effusions.] [Appearance of the right hemidiaphragm is unchanged.] [] IMPRESSION [No acute pulmonary findings on this single AP portable view of the chest. ECG Data Attestation: I personally reviewed and interpreted this ECG (s) as follows: Interpretation: Please see official report by Dr. Arevalo, sinus rhythm, ventricu lar rate of 80, right bundle branch block, no STEMI. HPI General Mode of arrival: ambulatory . Date/Time Provider Initiated Documentation: 05/09/21 08:47 . Limitations to Documentation: no limitations . Information obtained by: patient and family . HPI Narrative: This is a 75-year-old male, past medical history that includes A. fib, on both Eliquis and Plavix, CAD, 1 stent placed in 2011, GERD, hyperlipidemia, obstructive sleep apnea, wears BiPAP at night, presenting to the ER today complaining of palpitations which felt like his A. fib, nausea, vomiting, shortness of breath, left-sided chest pain that woke him up around 1:00 in the morning. Right now he feels extremely weak, states he would feel short of breath with exertion but denies any active shortness of breath, palpitations or chest pain. When he had the chest pain it was sharp, it did not radiate anywhere. He denies recent illness or trauma. States that over the weekend he did go to a where he was exposed to people but nobody was obvious sick. He denies fever, productive cough, change in bowel or bladder function, pain or swelling in his lower extremities. Patient states that he did have some abdominal cramping when he felt nauseous and had vomiting, vomited a total of 3 times emptying his stomach contents. He is a former smoker, did smoke 2 packs a day, quit in 1960s. Related Data Home Medications Medication Instructions Recorded Confirmed albuterol sulfate 2 puff INHALATION PRN PRN 09/28/13 05/09/21 nitroglycerin [Nitrostat] 0.4 mg PO PRN PRN 09/28/13 05/09/21 omeprazole 20 mg PO PRN PRN 09/28/13 05/09/21 simvastatin 20 mg PO DAILY 09/28/13 05/09/21 sildenafil [Viagra] 50 mg PO PRN PRN 10/22/15 05/09/21 cholecalciferol (vitamin D3) 2,000 unit PO DAILY 06/28/17 05/09/21 [Vitamin D3] solifenacin 5 mg tablet 5 mg PO DAILY #90 tab 09/15/18 05/09/21 clopidogrel [Plavix] 75 mg PO DAILY AM 02/02/19 05/09/21 vit [id number] 02/02/19 09/23/19 hydrocortisone-pramoxine 2.5 %-1 % 1 applic [place] QID PRN #4 gm 09/23/19 05/09/21 (4g) rectal cream tamsulosin 0.4 mg capsule 0.4 mg PO DAILY #90 cap 09/23/19 05/09/21 apixaban 5 mg tablet 5 mg PO BID 05/29/20 05/09/21 Previous Rx's Medication Instructions Recorded solifenacin 5 mg tablet 5 mg PO DAILY #90 tab 09/15/18 hydrocortisone-pramoxine 2.5 %-1 % 1 applic [place] QID PRN #4 gm 09/23/19 (4g) rectal cream tamsulosin 0.4 mg capsule 0.4 mg PO DAILY #90 cap 09/23/19 Allergies Allergy/AdvReac Type Severity Reaction Status Date / Time celecoxib [From Celebrex] AdvReac Severe Severe rash Unverified 05/09/21 09:23 ibuprofen [From Advil] AdvReac Intermediate upset Unverified 05/09/21 09:23 stomach General Stated Complaint: Chest Pain EVELYNE: 3 Review of Systems Constitutional Constitutional: Reports fatigue, Denies fever(s), Denies headache(s) and Reports weakness Eyes Eyes: Denies change in vision ENT Ears, Nose, Mouth, and Throat: Denies headache(s) and Denies neck pain Cardiovascular Cardiovascular: Reports chest pain, Reports dyspnea and Reports dyspnea on exertion Respiratory Respiratory: Reports cough, Reports dyspnea and Reports dyspnea on exertion Gastrointestinal Gastrointestinal: Reports abdominal pain, Denies constipation, Denies diarrhea, Reports nausea and Reports vomiting Genitourinary Genitourinary: Denies dysuria Musculoskeletal Musculoskeletal: Denies back pain and Denies neck pain Integumentary/Breasts Skin/Breast: Denies rash Neurologic Neurologic: Denies headache(s) and Reports weakness Endocrine Endocrine: Reports fatigue Hematologic/Lymphatic Hematologic/Lymphatic: Reports easy bleeding and Reports easy bruising [facility] Medical History Atrial fibrillation CAD (coronary artery disease), [place] coronary artery status post stenting GERD (gastroesophageal reflux disease) Hyperlipidemia Kidney stones DIXIE (obstructive sleep apnea) Surgical History Cholecystectomy open Coronary Stent ERCP Hernia Repair, Incisional Laparoscopic Social History Smoking/Tobacco Use Status: Former Tobacco Use Smoking risk assessment performed?: Yes Alcohol Intake: current Alcohol Intake frequency: a few times a week Alcohol type: wine Drug use: Never Substance use type: does not use Do you feel safe at home: Yes Do you feel safe in your relationship?: Yes Exam Const General: cooperative, healthy appearing, comfortable and no acute distress Orientation: alert, awake and oriented x3 HENMT Head: normal to inspection, normocephalic and atraumatic Face and sinus: normal facial exam Mouth: moist mucous membranes Eyes General: appearance normal, both eyes and all related structures Conjunctivae: conjunctivae normal Neck Neck: normal visual inspection, full ROM, trachea midline, supple and nontender Chest Chest: normal inspection of the chest and normal palpation of entire chest wall Resp Effort & Inspection: normal respiratory effort and able to speak in complete sentences Auscultation: clear to auscultation bilaterally Cardio Rate: regular rate Rhythm: regular rhythm GI Inspection: normal to inspection Palpation: soft, not firm, no guarding, no pulsatile masses and nontender Auscultation: normal bowel sounds Back/Spine/Pelvis Back: No back tenderness Skin General skin exam: no rashes or lesions noted Neuro General: patient alert, patient awake, moves all extremities and no focal motor deficits Cognition: normal cognition Speech: speech normal Gait: normal gait Motor: muscle tone normal throughout Sensory Exam: no sensory deficits noted Extrem General: normal to inspection, full ROM, capillary refill normal, no pedal edema and no calf tenderness Psych Appearance: grossly normal Mental Status: mental status grossly normal Course Vital Signs Vital signs: Vital Signs Temperature 36.6 C 05/09/21 08:47 Pulse 81 05/09/21 08:47 Respiratory Rate 18 05/09/21 08:47 Blood Pressure 133/85 05/09/21 08:47 Pulse Oximetry 96 05/09/21 08:47 Temperature 36.6 C 05/09/21 08:47 Temperature Source Temporal Artery Scan 05/09/21 08:47 Pulse 81 05/09/21 08:47 Respiratory Rate 18 05/09/21 08:47 Blood Pressure 133/85 05/09/21 08:47 Blood Pressure Position Sitting 05/09/21 08:47 Pulse Oximetry 96 05/09/21 08:47 Oxygen Delivery Method Room Air 05/09/21 08:47 Oxygen Flow Rate 0 05/09/21 08:47
[2021-05-09 09:12] LABS: Abs Immature Grans 0.03 10^3/uL (0.0-0.06); Absolute Basophil Count 0.03 10^3/uL (0.0-0.2); Absolute Eosinophil Count 0.01 10^3/uL (0.0-0.7); Absolute Lymphocyte Count 0.64 10^3/uL (1.2-3.4); Absolute Monocyte Count 0.82 10^3/uL (0.1-0.8); Absolute Neutrophil Count 8.65 10^3/uL (1.2-6.7); Basophils % 0.3; Eosinophils % 0.1; HCT 44.5 % (40.0-50.0); HGB 15.6 g/dL (13.5-17.5); Immature Grans % 0.3; Lymphocytes % 6.3; MCH 32.4 pg (27.0-33.0); MCHC 35.1 % (32.0-36.0); MCV 92.3 fL (80-95); MPV 9.5 fL (8.0-11.0); Monocytes % 8.1; Neutrophils % 84.9; Nucleated RBC 0 %; Platelet Count 181 10^3/uL (130-400); RBC 4.82 10^6/uL (4.36-5.78); RDW 11.7 % (11.8-14.1); RDW-SD 39.4 fL; WBC 10.18 10^3/uL (4.4-10.8)
[2021-05-09] MEDS: Aspirin 81 MG CHEW 324 MG CH (09:19)
[2021-05-09] MEDS: Normal Saline 1,000 ML 125 ML IV (09:19)
[2021-05-09 09:24] LABS: PTT Activated 23.4 sec (21.0-27.5); Prothrombin Time 10.4 sec (9.3-11.0)
[2021-05-09 09:33] LABS: ALT 35 U/L (16-63); AST 17 U/L (15-37); Albumin 3.8 g/dL (3.4-5.0); Alkaline Phosphatase 96 U/L (46-116); Anion Gap 6.6 mmol/L (3-11); BUN 24 mg/dL (7-18); Bilirubin, Total 1.7 mg/dL (0.2-1.0); CO2 28.4 mmol/L (21.0-32.0); CREATININE 1.1 mg/dL (0.70-1.30); Calcium 8.3 mg/dL (8.5-10.1); Chloride 106 mmol/L (98-107); Glucose 144 mg/dL (74-106); Lipase 56 U/L (73-393); NT-proBNP 141 pg/mL (<300); Potassium 4.2 mmol/L (3.5-5.1); Sodium 141 mmol/L (136-145); TSH (W/Ref FT4) 1.17 uIU/mL (0.36-3.74); Troponin I < 0.05 ng/mL (<0.06)
[2021-05-09 09:56] LABS: D-Dimer 274 ng/mlFEU (<500)
[2021-05-09 10:28] LABS: Source Nasal/Nares
--- NOTE | 2021-05-09 11:45 | RT.EKG_ITS ---
APPROVED REPORT Exam: Resting ECG Reason for Exam: pain,palpitations Patient Location: E HR:73 bpm ECG Measurements Heart Rate 73 AXIS MI 196 P 24 QRSd 132 QRS -29 QT 416 T -27 QTc 458 Conclusion Sinus rhythm. Right bundle branch block. Inferior infarct, old.
[2021-05-09 12:10] LABS: COVID-19 PCR Negative (Negative)
[2021-05-09 12:24] LABS: Troponin I < 0.05 ng/mL (<0.06)
== END 2021-05-09 13:41 | disposition home or self-care (01) ==
PROVIDERS: Emergency Provider Physician Assistant; PCP Internal Medicine Geriatric Medicine
DX: R00.2 Palpitations (principal); R07.89 Other chest pain; R53.1 Weakness; R06.02 Shortness of breath; I48.91 Unspecified atrial fibrillation; Z79.01 Long term (current) use of anticoagulants; Z20.822 Contact with and (suspected) exposure to COVID-19; Z03.818 Encounter for observation for suspected exposure to other biological agents ruled out
CPT/HCPCS: 36415; 80053; 83690; 87635; 93005; 96360; 96361; 99285; 71045; 83735; 83880; 84443; 84484; 85025; 85379; 85610; 85730; 93010

== ENCOUNTER 2021-10-02 19:22 | Emergency (ER) | payer MEDICARE, BC, SELFPAY ==
[2021-10-02] VITALS (42 sets, daily range): BP systolic 122–188; BP diastolic 74–103; PULSE 55–81; RESP 9–19; TEMP 36.3–36.9; O2SAT 92–100
--- NOTE | 2021-10-02 19:15 | RT.EKG_ITS ---
APPROVED REPORT Exam: Resting ECG Reason for Exam: chest pain Patient Location: E HR:60 bpm ECG Measurements Heart Rate 60 AXIS MO 188 P -5 QRSd 130 QRS -34 QT 438 T -18 QTc 438 Conclusion Sinus rhythm...normal P axis, V-rate 60- 99 Right bundle branch block. Inferior Q >35mS, II III aVF
[2021-10-02] MEDS: nitroGLYcerin 0.4 MG TAB ×2 (19:40→19:50)
--- NOTE | 2021-10-02 19:43 | ED.GENADUL_ITS ---
Discharge Plan Disposition Patient Disposition: HOME Condition: Good Discharge Details Clinical Impression: Chest pain Primary Care Provider: Abdulaziz Melchor ED Provider: Berlin Goyal Home Meds and New Rx's Prescriptions: Continued solifenacin [Vesicare] 5 mg tablet 5 mg PO DAILY Qty: 90 RF: 3 hydrocortisone-pramoxine 2.5-1 % (4g) cream 1 applic NH QID PRN Qty: 4 RF: 2 tamsulosin [Flomax] 0.4 mg capsule 0.4 mg PO DAILY Qty: 90 RF: 4 Eliquis 5 mg tablet 5 mg PO BID RF: 0 simvastatin 20 MG tablet 20 mg PO DAILY RF: 0 nitroglycerin [Nitrostat] 0.4 MG tablet, sublingual 0.4 mg PO PRN PRNRF: 0 albuterol sulfate 8.5 GM HFA aerosol inhaler 2 puff Inhalation PRN PRNRF: 0 omeprazole 20 MG tablet,delayed release (DR/EC) 20 mg PO PRN PRNRF: 0 sildenafil [Viagra] 100 MG tablet 50 mg PO PRN PRNRF: 0 oxybutynin chloride 5 mg tablet extended release 24hr 5 mg PO DAILY RF: 0 oxybutynin chloride 5 mg tablet extended release 24hr PO RF: 0 acetaminophen 500 mg Tablet 500 mg PO BID RF: 0 cholecalciferol (vitamin D3) [Vitamin D3] 2,000 UNIT capsule 2,000 unit PO DAILY RF: 0 clopidogrel [Plavix] 75 mg Tablet 75 mg PO DAILY AM RF: 0 vit [id number] 100 unit- 12.5 mg Capsule 1 cap PO DAILY RF: 0 Discharge Instructions Instructions: Chest Pain (ED) Additional Instructions: At this time your cardiac work-up is returned unremarkable and reassuring. Your initial and repeat troponin are both normal. As we have discussed together you have elected to go home. 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 If you notice any worsening of your symptoms, or any new symptoms such as vomiting, diarrhea, fever, chills, shortness of breath, chest pain, numbness, weakness, or fainting , please return immediately to the emergency department for reevaluation. Please follow up with your primary care provider as soon as possible for reassessment and reevaluation. As always, it was a pleasure participating in your medical care today. Referrals: Abdulaziz Melchor [Primary Care Provider] - Ellis Brunner [ [facility]] - Medical Decision Making <Alexander Arevalo MD - Last Filed: 10/02/21 20:51> 75-year-old male with a history of atrial fibrillation, coronary artery disease presents to the ER with onset of stuttering episodes of chest offered at home today that seem to be worse with exertion. Single nitroglycerin prove the pain at home. He has not been recently ill. States he is been taking his medications Plavix and apixaban. Patient arrives to the ER slightly hypertensive complaining of 3 out of 5 chest pain. He is placed on a media monitor, screening laboratories obtained and patient given nitroglycerin x1 and aspirin. Differential diagnosis includes angina, myocardial infarction, atypical chest pain as there is some atypical components to it such as an intermittent stabbing sensation. Patient did receive additional nitroglycerin in the ER, subsequently patient given GI cocktail and acetaminophen. Patient's labs show initial troponin that is negative. CBC unremarkable, chemistries reassuring. Chest x-ray reveals subtle subsegmental atelectasis but no other acute findings. Patient observed on a media monitor <Berlin Goyal DO - Last Filed: 10/02/21 23:56> 75-year-old male with a past medical history of stent, previous cardiac disease, presents today for chest pain. Patient states that at 1 PM this afternoon he developed a sudden onset sharp chest pain in his chest while at rest. Throughout the day the symptoms continued. They would last just a few seconds, they would go away on their own without any intervention or activity. There was no associated shortness of breath or chest tightness. No associated tearing or ripping sensation. Patient denies any exertional chest discomfort. Patient came to the ER and was evaluated by Dr. Arevalo. Please refer to his HPI, physical exam, assessment and plan. Initial troponin, EKG, and chest x-ray were negative for significant acute process. Case was signed out to me pending repeat troponin reassessment. At time of signout patient was noted to be stable. Repeat troponin repeat EKG have returned normal and unchanged respectively. Patient feels well. Patient has no chest pain. States that he would like to go home. We discussed continued observation here in the ED and inpatient, versus discharge, and at this time through notable discussion, weighing the risks and benefits, utilizing a shared decision making process, and with a very clear discussion on the benefit of admission and the risks associated with discharge including the unlikely but potential worst case scenario of or lifelong disability the patient has declined admission and would like to go home. Patient is of a appropriate age to make decisions. The patient is of sound mind, appears clinically sober, and has capacity to make decisions by my clinical exam. Respecting the patient's wishes, they will be discharged home. Symptoms at this time certainly appear clinically inconsistent with ACS, dissection, or massive PE. Especially since his symptoms have been going on for nearly 12 hours at this point and have resolved at this point. 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 Discussed red flags for which to return. I have extensively reviewed the treatment plan and discharge instructions with the patient. I have addressed all patient concerns at this time. The patient was made aware of what symptoms to monitor for that would warrant a return to the emergency department. Discussed the plan with the patient, they demonstrate verbal understanding and agreement with our assessment and plan at this time. The documentation in this chart was dictated using [employer] dictation software. Please excuse any dictation errors. EKG 23: 17 Rate 59, sinus bradycardia with a right bundle branch block, no significant ST elevation or depression. Unchanged from prior EKG both today and October 2018. HPI <Alexander Arevalo MD - Last Filed: 10/02/21 20:51> General Mode of arrival: ambulatory . Date/Time Provider Initiated Documentation: 10/02/21 19:27 . Limitations to Documentation: no limitations . Information obtained by: patient . History of Present Illness 75 year old M presents to the emergency department with the chief complaint of Chest pain, described as moderate and similar to prior episodes, Quality is described as dull, and is localized to the chest. Patient reports no radiation. Patient started experiencing this hour(s) and it has been intermittent. Rest improves symptom(s), and other things that improve symptom(s), (Nitroglycerin x1) Movement worsens symptoms . Patient notes chest pain; denies cough and syncope. Patient did receive the following treatments prior to arrival, other (Nitroglycerin x1) Related Data Home Medications Medication Instructions Recorded Confirmed albuterol sulfate 2 puff INHALATION PRN PRN 09/28/13 10/02/21 nitroglycerin [Nitrostat] 0.4 mg PO PRN PRN 09/28/13 10/02/21 omeprazole 20 mg PO PRN PRN 09/28/13 10/02/21 simvastatin 20 mg PO DAILY 09/28/13 10/02/21 sildenafil [Viagra] 50 mg PO PRN PRN 10/22/15 10/02/21 cholecalciferol (vitamin D3) 2,000 unit PO DAILY 06/28/17 10/02/21 [Vitamin D3] solifenacin 5 mg tablet 5 mg PO DAILY #90 tab 09/15/18 05/09/21 clopidogrel [Plavix] 75 mg PO DAILY AM 02/02/19 10/02/21 vit [id number] 1 cap PO DAILY 02/02/19 10/02/21 hydrocortisone-pramoxine 2.5 %-1 % 1 applic NH QID PRN #4 gm 09/23/19 05/09/21 (4g) rectal cream tamsulosin 0.4 mg capsule 0.4 mg PO DAILY #90 cap 09/23/19 10/02/21 apixaban 5 mg tablet 5 mg PO BID 05/29/20 10/02/21 acetaminophen 500 mg PO BID 10/02/21 10/02/21 oxybutynin chloride 5 mg PO DAILY 10/02/21 10/02/21 oxybutynin chloride mg PO 10/02/21 10/02/21 Previous Rx's Medication Instructions Recorded solifenacin 5 mg tablet 5 mg PO DAILY #90 tab 09/15/18 hydrocortisone-pramoxine 2.5 %-1 % 1 applic NH QID PRN #4 gm 09/23/19 (4g) rectal cream tamsulosin 0.4 mg capsule 0.4 mg PO DAILY #90 cap 09/23/19 Allergies Allergy/AdvReac Type Severity Reaction Status Date / Time celecoxib [From Celebrex] AdvReac Severe Severe rash Unverified 10/02/21 19:49 ibuprofen [From Advil] AdvReac Intermediate upset Unverified 10/02/21 19:49 stomach General Stated Complaint: Chest Pain EVELYNE: 2 Review of Systems <Alexander Arevalo MD - Last Filed: 10/02/21 20:51> Narrative: Fully immunized against COVID-19. States he has no recent illness. No syncope today. 8 systems reviewed and otherwise negative PFSH <Alexander Arevalo MD - Last Filed: 10/02/21 20:51> All Active Problems Chest pain (Acute) Palpitation (Acute) Chest pain (Acute) Kidney stones (Chronic) Urgency incontinence (Acute 09/08/16) Frequency of urination (Acute 09/08/16) Incarcerated ventral hernia (Acute 10/11/14) Atrial fibrillation (Chronic) CAD (coronary artery disease) (Chronic) a. s/p stenting Obstructive sleep apnea (Chronic) Hyperlipidemia (Chronic) H/O surgical procedure (Chronic) a. coronary stenting b. open cholecystectomy c. ERCP Medical History Atrial fibrillation CAD (coronary artery disease), [place] coronary artery status post stenting GERD (gastroesophageal reflux disease) Hyperlipidemia DIXIE (obstructive sleep apnea) Surgical History Cholecystectomy open Coronary Stent ERCP Hernia Repair, Incisional Laparoscopic Social History Smoking/Tobacco Use Status: Former Tobacco Use Smoking risk assessment performed?: Yes Alcohol Intake: current Alcohol Intake frequency: a few times a week Alcohol type: wine Drug use: Never Substance use type: does not use Do you feel safe at home: Yes Do you feel safe in your relationship?: Yes Exam <Alexander Arevalo MD - Last Filed: 10/02/21 20:51> Narrative Exam Narrative: GEN: awake, alert, oriented 3. Pleasant, well groomed, interactive. HEAD: Normocephalic, atraumatic ENT: Mucous membranes moist, oropharynx unremarkable, External ear exam unremarkable EYES: PERRL, EOMI NECK: Full ROM, no BRYCE, no menigismus CHEST/RESP: Nontender, clear to auscultation bilateral, no wheeze/rhonchi/rales CARDIOVASCULAR: RRR, no murmur, rub bernice. 2+ Rad pulse bilateral ABDOMEN: Soft, nontender, no mass. +Bowel sounds EXT: Full ROM, no edema, no rash Neuro: Grossly normal neurologic exam, conversant, interactive. Psych: Speech fluent, thoughts congruent, affect normal Course <Alexander Arevalo MD - Last Filed: 10/02/21 20:51> Vital Signs Vital signs: Vital Signs Temperature 36.3 C L 10/02/21 19:38 Pulse 72 10/02/21 19:38 Respiratory Rate 18 10/02/21 19:38 Blood Pressure 188/85 H 10/02/21 19:38 Pulse Oximetry 98 10/02/21 19:38 Temperature 36.3 C L 10/02/21 19:38 Temperature Source Temporal Artery Scan 10/02/21 19:38 Pulse 72 10/02/21 19:38 Respiratory Rate 18 10/02/21 19:40 Respiratory Effort 10/02/21 19:40 Blood Pressure 188/85 H 10/02/21 19:38 Blood Pressure Position Sitting 10/02/21 19:38 Pulse Oximetry 98 10/02/21 19:38 Oxygen Delivery Method Room Air 10/02/21 19:38 Oxygen Flow Rate 0 10/02/21 19:38 Pain Level 8 10/02/21 19:38 Sign Out <Alexander Arevalo MD - Last Filed: 10/02/21 20:51> Sign Out Data: Sign Out Comment: followup trop #2 Last updated by Alexander Arevalo MD at 10/02/21 22:50
[2021-10-02] MEDS: Aspirin 81 MG CHEW (19:49)
[2021-10-02 19:57] LABS: Abs Immature Grans 0.03 10^3/uL (0.0-0.06); Absolute Basophil Count 0.03 10^3/uL (0.0-0.2); Absolute Eosinophil Count 0.14 10^3/uL (0.0-0.7); Absolute Lymphocyte Count 2.18 10^3/uL (1.2-3.4); Absolute Monocyte Count 0.64 10^3/uL (0.1-0.8); Absolute Neutrophil Count 4.02 10^3/uL (1.2-6.7); Basophils % 0.4; HCT 44.9 % (40.0-50.0); HGB 15.2 g/dL (13.5-17.5); Immature Grans % 0.4; MCH 32.5 pg (27.0-33.0); MCHC 33.9 % (32.0-36.0); MCV 95.9 fL (80-95); Monocytes % 9.1; Neutrophils % 57.1; Nucleated RBC 0 %; Platelet Count 181 10^3/uL (130-400); RBC 4.68 10^6/uL (4.36-5.78); RDW 12.1 % (11.8-14.1); RDW-SD 42.5 fL; WBC 7.04 10^3/uL (4.4-10.8)
[2021-10-02 20:10] LABS: Prothrombin Time 10.2 sec (9.3-11.0)
[2021-10-02 20:17] LABS: ALT 45 U/L (16-63); AST 17 U/L (15-37); Albumin 3.7 g/dL (3.4-5.0); Alkaline Phosphatase 137 U/L (46-116); Anion Gap 6.8 mmol/L (3-11); BUN 20 mg/dL (7-18); Bilirubin, Total 0.5 mg/dL (0.2-1.0); CO2 29.2 mmol/L (21.0-32.0); Calcium 8.2 mg/dL (8.5-10.1); Chloride 104 mmol/L (98-107); Glucose 101 mg/dL (74-106); Magnesium 2.2 mg/dL (1.8-2.4); Potassium 4.5 mmol/L (3.5-5.1); Sodium 140 mmol/L (136-145); Total Protein 6.9 g/dL (6.4-8.2); Troponin I < 50 ng/L (<or=60)
[2021-10-02] MEDS: ACETAMINOPHEN 1,000 MG/100 ML BTL 400 MG IVPB (20:18)
--- NOTE | 2021-10-02 20:39 | DI.RAD_ITS ---
Exam(s) XR PORTABLE CHEST AP EXAM: XR PORTABLE CHEST AP CLINICAL HISTORY: chest pain. TECHNIQUE: 2D digital imaging was performed. COMPARISON: CR XR PORTABLE CHEST AP from 05/09/2021 FINDINGS: Heart size is upper normal. The mediastinum is not widened. Lungs are clear. No infiltrates nor obvious pleural effusions. Scalloping of the right hemidiaphragm remains unchanged. IMPRESSION: No acute pulmonary findings on this single AP portable view of the chest. DATA REPOSITORY: RADIATION DOSE DELIVERED: All CT scans at this facility use at least one of these dose optimization techniques: automated exposure control; mA and/or kV adjustment per patient size (includes targeted e xams where dose is matched to clinical indication); or iterative reconstruction.
--- NOTE | 2021-10-02 20:48 | DI.VRAD_ITS ---
PROCEDURE INFORMATION: Exam: XR Chest Exam date and time: 10/02/2021 19:31 Age: 75 years old Clinical indication: Angina pectoris; Patient HX: Chest pain TECHNIQUE: Imaging protocol: XR of the chest. Views: 1 view. COMPARISON: CR XR PORTABLE CHEST AP 05/09/2021 10:00 FINDINGS: Lungs: Linear bibasilar opacities. Low lung volumes. Pleural spaces: No pleural effusion. No pneumothorax. Heart/Mediastinum: No cardiomegaly. Diaphragm: Elevated right hemidiaphragm. Bones/joints: No acute fracture. IMPRESSION: Basilar subsegmental atelectasis. Dictated and Authenticated by: Merary Robin MD. Ordering:FRANTZ Munoz MD
--- NOTE | 2021-10-02 21:31 | NUR.NOTE ---
pt would like to be at home but is unable to get there . his neighbor has a car that is not leagal. even if he could get home , he would be unable to get down the bank that has stairs . his wheelchair is inside the house . the pt is very disdraught over this .Nursing Note:
[2021-10-02 22:57] LABS: Troponin I < 50 ng/L (<or=60)
--- NOTE | 2021-10-02 23:00 | RT.EKG_ITS ---
APPROVED REPORT Exam: Resting ECG Reason for Exam: chest pain Patient Location: E HR:59 bpm ECG Measurements Heart Rate 59 AXIS AK 206 P 38 QRSd 132 QRS -30 QT 433 T -18 QTc 430 Conclusion Sinus bradycardia...rate< 60 Right bundle branch block...QRSd>120, terminal axis(90,270) Inferior infarct, old...Q >35mS, II III aVF Physician: Rate 59, sinus bradycardia with a right bundle branch block, no significant ST elevation o r depression. Unchanged from prior EKG both today and October 2018.
== END 2021-10-02 23:51 | disposition home or self-care (01) ==
PROVIDERS: Emergency Medicine; Emergency Provider Student in an Organized Health Care Education/Training Program; PCP Internal Medicine Geriatric Medicine
DX: R07.9 Chest pain, unspecified (principal); I10 Essential (primary) hypertension; I48.91 Unspecified atrial fibrillation; I25.10 Atherosclerotic heart disease of native coronary artery without angina pectoris
CPT/HCPCS: 80053; 93005; 96374; 99284; 71045; 83735; 84484; 85025; 85610; 93010; J0131

== ENCOUNTER 2022-11-25 14:51 | Emergency (ER) | payer OTHER, SELFPAY ==
[2022-11-25] VITALS (19 sets, daily range): BP systolic 113–143; BP diastolic 61–128; PULSE 70–108; RESP 10–24; TEMP 36.7; O2SAT 95
--- NOTE | 2022-11-25 15:15 | DI.US_ITS ---
Exam(s) US LOWER EXTREMITY VENOUS RT EXAM: US LOWER EXTREMITY VENOUS RT CLINICAL HISTORY: Right calf pain TECHNIQUE: Right lower extremity venous ultrasound performed using grayscale, color-flow, and spectr al Doppler analysis. COMPARISON: No exams were available for comparison FINDINGS: The right common femoral, femoral and popliteal veins demonstrate normal compressibility, augmentatio n, and color Doppler. The posterior tibial veins are patent. The saphenofemoral junction is unremark able. There is no evidence of a Og cyst. The soft tissues are unremarkable. IMPRESSION: 1. No evidence of a right lower extremity DVT. 2. Findings were discussed with the emergency department at 4:19 p.m. on 11/25/2022. DATA REPOSITORY:
--- NOTE | 2022-11-25 15:15 | RT.EKG_ITS ---
APPROVED REPORT Exam: Resting ECG Reason for Exam: Patient Location: E HR:86 bpm ECG Measurements Heart Rate 86 AXIS MS 172 P 31 QRSd 118 QRS -47 QT 378 T -13 QTc 453 Conclusion Sinus rhythm...normal P axis, V-rate 60- 99 Incomplete right bundle branch block...QRSd >112, terminal axis(90,270) Inferior infarct, old...Q >35mS, II III aVF Normal sinus rhythm at a rate of 86 with incomplete right bundle branch block. QTc within normal [place] its. MS within normal limits no ST segment abnormalities. Inferior T wave inversions appear similar to prior dated 2 years ago. No acute injury pattern
--- NOTE | 2022-11-25 15:17 | DI.RAD_ITS ---
Exam(s) XR CHEST 2V PA LATERAL EXAM: XR CHEST 2V PA LATERAL CLINICAL HISTORY: sob TECHNIQUE: 2D digital imaging was performed of the chest. Two images were obtained. PA and lateral views were obtained. COMPARISON: CR,XR XR PORTABLE CHEST AP from 10/02/2021 FINDINGS: MEDIASTINUM: Normal. HEART: Normal. PULMONARY VASCULATURE: Normal. LUNGS: Clear. PLEURAL SPACE: No pleural effusion or pneumothorax. BONE:Within normal limits for the patient's age. OTHER FINDINGS:Normal. IMPRESSION: No acute pulmonary findings. DATA REPOSITORY: RADIATION DOSE DELIVERED:
--- NOTE | 2022-11-25 15:22 | ED.GENADUL_ITS ---
Discharge Plan Disposition Patient Disposition: Home Discharge Details Clinical Impression: Exacerbation of RAD (reactive airway disease) Primary Care Provider: Abdulaziz Melchor ED Provider: Dank Mcqueen Home Meds and New Rx's Prescriptions: New prednisone 20 mg tablet 60 mg PO DAILY 5 Days Qty: 15 0RF doxycycline monohydrate 100 mg tablet 100 mg PO BID 5 Days Qty: 10 0RF Continued solifenacin [Vesicare] 5 mg tablet 5 mg PO DAILY Qty: 90 3RF hydrocortisone-pramoxine 2.5-1 % (4g) cream 1 applic [place] QID PRN Qty: 4 2RF Eliquis 5 mg tablet 5 mg PO BID simvastatin 20 MG tablet 20 mg PO DAILY nitroglycerin [Nitrostat] 0.4 MG tablet, sublingual 0.4 mg PO PRN PRN albuterol sulfate 8.5 GM HFA aerosol inhaler 2 puff Inhalation PRN PRN omeprazole 20 MG tablet,delayed release (DR/EC) 20 mg PO PRN PRN sildenafil [Viagra] 100 MG tablet 50 mg PO PRN PRN oxybutynin chloride 5 mg tablet extended release 24hr 5 mg PO DAILY PRN acetaminophen 500 mg Tablet 500 mg PO BID tamsulosin [Flomax] 0.4 mg capsule 0.8 mg PO DAILY cholecalciferol (vitamin D3) [Vitamin D3] 2,000 UNIT capsule 2,000 unit PO DAILY clopidogrel [Plavix] 75 mg Tablet 75 mg PO DAILY AM vit [id number] 100 unit- 12.5 mg Capsule 1 cap PO DAILY Rx Instructions: 02/02/19 vit E two tabs unknown brand Discharge Instructions Instructions: Reactive Airways Disease (ED) Additional Instructions: Please read all of the information that accompanies these instructions. You were seen in the emergency department for your shortness of breath. Your CAT scan showed no sign of pneumonia. Your ultrasound at bedside showed no sign of heart failure. You likely have an exacerbation of your reactive airway disease for which you are receiving an antibiotic to prevent inflammation and a steroid pill. As we discussed, if you develop worsening shortness of breath have any chest pain or pass out at home please return to the emergency department. Please schedule an appointment with your primary care provider later this week. Discharge Data Discharge Date/Time-TO BE ENTERED AT DEPARTURE: 11/25/22 19:28 Medical Decision Making This is a 77-year-old normotensive and normothermic and not tachycardic male with outpatient fever cough and dyspnea concerning for sepsis given reported prehospital hypotension and fever at urgent care conservatively. Given atherosclerotic coronary artery disease will initiate fluid resuscitation with 500 cc. Patient is tolerating p.o. so will also provide a linda ajit. We will also check lactate draw 2 sets of blood cultures and treat empirically with ceftriaxone and piperacillin/tazobactam. No urinary symptoms however given concern for sepsis will obtain urinalysis. No chest pain to suggest ACS. He does have a history of asthma and COPD so we will attempt nebulization treatment. Given cough and shortness of breath for the past 5 days with history of reactive airway disease it is certainly also possible he has having an exacerbation of his reactive airway disease as he does feel as if he has been bringing up more phlegm. He is not hypoxic to suggest benefit from supplemental oxygen. Patient denies tobacco, ethanol, and illicits. Given right calf pain will obtain right lower extremity duplex study as patient has never had a PE nor DVT. Given soft nontender abdomen I am not concerned for intra-abdominal infection. Furthermore patient has had no nausea nor vomiting making intra- abdominal infection less likely. 6:[address] returned showing pneumobilia. Patient has no right upper quadrant tenderness nor any history of any recent surgical instrumentation. He has not been nauseous nor vomiting and I am not concerned for a calculus cholecystitis. Furthermore he had no signs of obstruction to suggest gallstone ileus. His lactate down trended in the emergency department. Given that he was tolerating p.o. with no nausea nor vomiting I did not give him additional fluids nor repeat a lack. Patient had unilateral right-sided B-lines on ultrasound but no pleural effusions. It appeared that he had a good squeeze. Concerned with his history of obstructive sleep apnea it is certainly possible that he has a history of pulmonary arterial hypertension. Given that he has not been adherent with his CPAP machine it is certainly possible that he has exacerbated his underlying congestion and this is causing him to feel more short of breath during the day. It is also possible given his fevers and his unilateral B-lines that he has a viral PNA. There is a subtle increased opacification on the right on his dry CT scan. Will wait for radiology formal read but if this does not show any clear bacterial pneumonia we will treat him with prednisone to treat for reactive airway disease and doxycycline for anti-inflammatories. He did feel slightly improved with his nebulizer treatment. Given no bilateral B- lines and no pleural effusions I am not concerned for acute CHF. He is not tachycardic not hypotensive to suggest PE and he had no DVT. I spoke with Loretta from respiratory therapy and asked her to come assess the patient on our CPAP machine in an attempt to troubleshoot his difficulties at home. She reported that there was only 1 clean CPAP machine in the hospital and that using it for this patient would prevent a subsequent patient from having access to it overnight. I elected to preserve this resource and defer evaluation of his CPAP machine at the moment. I did not have respiratory therapy evaluate the patient in the ED. healthy community service patrol officer asked care management to help arrange for close primary care follow-up later this week. I explained to the patient that we would pursue an empiric trial of expectant outpatient management. I gave patient strict return indications including any difficulty breathing any chest pain any fevers or any syncope. He understood his return indications and will follow-up with his primary care provider later this week and return to the emergency department as needed. HPI General Date/Time Provider Initiated Documentation: 11/25/22 15:05 . HPI Narrative: This is a 77-year-old male with a history of atherosclerotic coronary artery disease and DIXIE on nocturnal CPAP arriving to the emergency department via private vehicle in the setting of shortness of breath and cough. Patient has reportedly had a cough with increased phlegm production for the past 5 days at home. He is vaccinated against COVID. He does have a history of asthma and COPD. He does not smoke tobacco nor drink alcohol nor use illicits. He has a history of atrial fibrillation for which he is on clopidogrel. Today he noticed some pain in his right calf. He has never had a DVT nor PE. He does feel slightly dizzy when walking. He was febrile at urgent care where they were concerned for sepsis so sent him into the emergency department. He denies abdominal pain nausea and vomiting. Related Data Home Medications Medication Instructions Recorded Confirmed albuterol sulfate 90 mcg/actuation 2 puff inhalation PRN PRN 09/28/13 11/25/22 aerosol inhaler nitroglycerin 0.4 mg sublingual 0.4 mg PO PRN PRN 09/28/13 11/25/22 tablet (Nitrostat) omeprazole 20 mg tablet,delayed 20 mg PO PRN PRN 09/28/13 11/25/22 release simvastatin 20 mg tablet 20 mg PO DAILY 09/28/13 11/25/22 sildenafil 100 mg tablet (Viagra) 50 mg PO PRN PRN 10/22/15 11/25/22 cholecalciferol (vitamin D3) 50 2,000 unit PO DAILY 06/28/17 11/25/22 mcg (2,000 unit) capsule (Vitamin D3) solifenacin 5 mg tablet (Vesicare) 5 mg PO DAILY #90 tabs 09/15/18 11/25/22 clopidogrel 75 mg tablet (Plavix) 75 mg PO DAILY AM 02/02/19 11/25/22 vit E 100 unit-zinc 12.5 1 cap PO DAILY 02/02/19 10/02/21 of-pcsadz-xszcfkde-bilberry-herb #261 capsule hydrocortisone-pramoxine 2.5 %-1 % 1 applic [place] QID PRN rectal pain #4 09/23/19 11/25/22 (4g) rectal cream grams apixaban 5 mg tablet (Eliquis) 5 mg PO BID 05/29/20 11/25/22 acetaminophen 500 mg tablet 500 mg PO BID 10/02/21 11/25/22 oxybutynin chloride 5 mg 5 mg PO DAILY PRN 10/02/21 11/25/22 tablet,extended release 24 hr doxycycline monohydrate 100 mg 100 mg PO BID 5 days #10 tabs 11/25/22 tablet prednisone 20 mg tablet 60 mg PO DAILY 5 days #15 tabs 11/25/22 tamsulosin 0.4 mg capsule (Flomax) 0.8 mg PO DAILY 11/25/22 11/25/22 Previous Rx's Medication Instructions Recorded solifenacin 5 mg tablet (Vesicare) 5 mg PO DAILY #90 tabs 09/15/18 hydrocortisone-pramoxine 2.5 %-1 % 1 applic [place] QID PRN rectal pain #4 09/23/19 (4g) rectal cream grams doxycycline monohydrate 100 mg 100 mg PO BID 5 days #10 tabs 11/25/22 tablet prednisone 20 mg tablet 60 mg PO DAILY 5 days #15 tabs 11/25/22 Allergies Allergy/AdvReac Type Severity Reaction Status Date / Time celecoxib [From Celebrex] AdvReac Severe Severe rash Unverified 11/25/22 15:09 ibuprofen [From Advil] AdvReac Intermediate upset Unverified 11/25/22 15:09 stomach General Stated Complaint: RespSymp EVELYNE: 3 PFSH All Active Problems Chest pain (Acute) Palpitation (Acute) Exacerbation of RAD (reactive airway disease) (Acute) Kidney stones (Chronic) Urgency incontinence (Acute 09/08/16) Frequency of urination (Acute 09/08/16) Incarcerated ventral hernia (Acute 10/11/14) Atrial fibrillation (Chronic) CAD (coronary artery disease) (Chronic) a. s/p stenting Obstructive sleep apnea (Chronic) Hyperlipidemia (Chronic) H/O surgical procedure (Chronic) a. coronary stenting b. open cholecystectomy c. ERCP Medical History Atrial fibrillation CAD (coronary artery disease), [place] coronary artery status post stenting GERD (gastroesophageal reflux disease) Hyperlipidemia DIXIE (obstructive sleep apnea) Surgical History Cholecystectomy open Coronary Stent ERCP Hernia Repair, Incisional Laparoscopic Social History Smoking/Tobacco Use Status: Former Tobacco Use Smoking risk assessment performed?: Yes Alcohol Intake: current Alcohol Intake frequency: a few times a week Alcohol type: wine Drug use: Never Substance use type: does not use Do you feel safe at home: Yes Do you feel safe in your relationship?: Yes Exam Narrative Exam Narrative: General: Elderly uncomfortable-appearing in no acute distress speaking in complete sentences. Head: Normocephalic, atraumatic Ear, nose, mouth, throat: Grossly normal inspection. Normal voice, handling secretions normally. Neck: Trachea midline. Cardiovascular: Well-perfused distal extremities. Respiratory: Nonlabored respiration. Decreased breath sounds bilateral bases. No significant wheezes. No accessory muscle use. Gastrointestinal: Nondistended abdomen. Musculoskeletal: No significant lower extremity pitting edema. Moving all 4 extremities spontaneously. Right calf no significant tenderness. Skin: Normal for age and race, grossly normal temperature and turgor. No acute rash. Neurologic: Alert and appropriate, no apparent acute deficits. Psychiatric: Mood and manner are appropriate. Grooming and personal hygiene are appropriate. Course Vital Signs Vital signs: Vital Signs Temperature 36.7 C 11/25/22 15:05 Pulse 88 11/25/22 15:05 Blood Pressure 143/104 H 11/25/22 15:05 Pulse Oximetry 95 11/25/22 15:05 Temperature 36.7 C 11/25/22 15:05 Temperature Source Oral 11/25/22 15:05 Pulse 88 11/25/22 15:05 Respiratory Effort Normal 11/25/22 15:11 Respiratory Depth Normal 11/25/22 15:11 Blood Pressure 143/104 H 11/25/22 15:05 Blood Pressure Position Sitting 11/25/22 15:05 Pulse Oximetry 95 11/25/22 15:05 Oxygen Delivery Method Room Air 11/25/22 15:05 Oxygen Flow Rate 0 11/25/22 15:05 Pain Level 5 11/25/22 15:05 Lab/Test Results Lab/Test Results: 11/25/22 15:18 Blood Blood Culture - Pending 11/25/22 15:18 Blood Blood Culture - Pending POCUS Exam (ED) Limited Cardiac Exam DATE OF EXAM: 11/25/22 TIME OF EXAM: 18:22 REASON FOR EXAM: Dyspnea VISUALIZED STRUCTURES: Four Chambers and LVOT VIEW OBTAINED: Apical 4-Chamber PERTINENT FINDINGS/IMPRESSION: Other Right-sided B-lines. No pleural effusions bilaterally. Aortic outflow tract less than 4 cm, good squeeze, RV less than LV. No significant pericardial effusion ; No LV dysfunction and No pericardial effusion Exam complete
[2022-11-25 15:30] LABS: Abs Immature Grans 0.03 10^3/uL (0.0-0.06); Absolute Basophil Count 0.02 10^3/uL (0.0-0.2); Absolute Lymphocyte Count 1.32 10^3/uL (1.2-3.4); Absolute Monocyte Count 0.67 10^3/uL (0.1-0.8); Absolute Neutrophil Count 6.65 10^3/uL (1.2-6.7); Basophils % 0.2; Eosinophils % 1.1; HCT 45.6 % (40.0-50.0); HGB 15.8 g/dL (13.5-17.5); Immature Grans % 0.3; MCH 31.8 pg (27.0-33.0); MCHC 34.6 % (32.0-36.0); MCV 92 fL (80-95); MPV 9.5 fL (8.0-11.0); Monocytes % 7.6; Neutrophils % 75.8; Platelet Count 163 10^3/uL (130-400); RBC 4.97 10^6/uL (4.36-5.78); RDW 11.7 % (11.8-14.1); RDW-SD 39.5 fL; WBC 8.79 10^3/uL (4.4-10.8)
[2022-11-25 15:32] LABS: Lactate 2.4 mmol/L (0.6-1.4)
[2022-11-25] MEDS: Acetaminophen 500 MG TAB 1000 MG PO (15:34)
[2022-11-25] MEDS: cefTRIAXone 2 GM/50 ML BAG IVPB (15:34)
[2022-11-25 15:46] LABS: ALT 18 U/L (16-63); AST 17 U/L (15-37); Albumin 3.5 g/dL (3.4-5.0); Alkaline Phosphatase 89 U/L (46-116); Anion Gap 8.2 mmol/L (3-11); BUN 17 mg/dL (7-18); Bilirubin, Total 1.4 mg/dL (0.2-1.0); CO2 27.8 mmol/L (21.0-32.0); CREATININE 1.4 mg/dL (0.70-1.30); Calcium 8.6 mg/dL (8.5-10.1); Chloride 104 mmol/L (98-107); Estimated GFR 52.09 (mL/min/1.73m2); Glucose 189 mg/dL (74-106); Sodium 140 mmol/L (136-145); Total Protein 6.8 g/dL (6.4-8.2)
[2022-11-25 16:00] LABS: Troponin I < 50 ng/L (<or=60)
[2022-11-25 16:17] LABS: COVID-19 PCR Negative (Negative); Source Nasopharynx
[2022-11-25 16:18] LABS: Influenza A PCR Negative (Negative); Influenza B PCR Negative (Negative); RSV PCR Negative (Negative)
[2022-11-25] MEDS: Normal Saline 500 ML IV (16:38)
[2022-11-25] MEDS: Albuterol/Ipratropium 3 ML UPD VIAL UPD (17:23)
--- NOTE | 2022-11-25 17:30 | DI.CT_ITS ---
Exam(s) CT CHEST WO EXAM: CT CHEST WO CLINICAL HISTORY: Shortness of breath negative chest x-ray. TECHNIQUE: Imaging protocol: Axial computed tomography images were obtained and coronal and sagittal reformatted images were created and reviewed. COMPARISON: CR CHEST 2 VIEWS PA,LAT from 09/03/[address] ABDOMEN PELVIS W from 06/08/2020 CR,XR XR PORTABLE CHEST AP from 10/02/2021 CR XR CHEST 2V PA LATERAL from 11/25/2022 FINDINGS: The examination is limited due to patient motion artifact. Tracheobronchial tree: Patent where visualized. Pulmonary parenchyma: No consolidation or dominant measurable mass. No architectural distortion. Ther e is atelectasis and scarring in the lung bases. No focal consolidation is seen. Mediastinum and Rosie: No dominant adenopathy or fluid collection. The esophagus is unremarkable. Thyroid gland: Unremarkable. Pleura: No effusion or pneumothorax. Heart: The heart is not dilated. Coronary artery calcifications and/or stents are present. No perica rdial effusion. Aorta: Thoracic aorta non-dilated. Atherosclerosis is present. Upper abdomen: The gallbladder is absent. There is again seen pneumobilia. There is bilateral neph rolithiasis. Lymph nodes: Within normal limits. Soft tissues: Unremarkable. Bones:Within normal limits for the patient's age. There is an old midthoracic compression fracture d eformity. IMPRESSION: 1. No acute pulmonary process. 2. Old mid thoracic compression fracture deformity. RADIATION DOSE DELIVERED: 688mGy.cm Total DLP 688mGy.cm Total DLP DATA REPOSITORY: All CT scans at this facility are submitted to the National Radiology Data Registry (NRDR) Dose Index Registry (DIR) with the [employer] ([employer]). RADIATION OPTIMIZATION: All CT scans at this facility use at least one of these dose optimization te chniques: automated exposure control; mA and/or kV adjustment per patient size (includes targeted exa ms where dose is matched to clinical indication); or iterative reconstruction.
[2022-11-25 17:37] LABS: Bilirubin Small (Negative); Blood Negative (Negative); Clarity Clear (Clear); Glucose Negative (Negative); Ketones Negative (Negative); Leukocyte Esterase Negative (Negative); Nitrite Negative (Negative); pH 7.5 (5-8)
[2022-11-25] MEDS: VANCOMYCIN/WATER (PEG) 1.75 GM/350 ML BAG IV (17:49)
[2022-11-25 17:51] LABS: Bacteria Negative HPF (Negative); C & S Indicated? No; Casts Negative LPF (Negative); Crystals Negative HPF (Negative); Epithelial Cells Many HPF (Negative); Mucus Negative (Negative); Other Cells Negative (Negative); RBC 0-2 HPF (0-2); WBC 0-2 HPF (0-5)
[2022-11-25 18:25] LABS: Lactate 1.9 mmol/L (0.6-1.4)
--- NOTE | 2022-11-25 18:54 | DI.VRAD_ITS ---
PROCEDURE INFORMATION: Exam: CT Chest Without Contrast; Diagnostic Exam date and time: 11/25/2022 5:51 PM Age: 77 years old Clinical indication: Shortness of breath negative chest x-ray TECHNIQUE: Imaging protocol: Diagnostic computed tomography of the chest without contrast. 3D rendering (Not supervised by radiologist): MIP and/or 3D reconstructed images were created by the technologist. Radiation optimization: All CT scans at this facility use at least one of these dose optimization techniques: automated exposure control; mA and/or kV adjustment per patient size (includes targeted exams where dose is matched to clinical indication); or iterative reconstruction. COMPARISON: CR XR CHEST 2V PA LATERAL 11/25/2022 4:20 PM FINDINGS: Limitations: Motion artifact does moderately limit the sensitivity of this examination. Lungs: No significant consolidation. Atelectasis noted the bilateral lung Pleural spaces: No pneumothorax. No pleural effusion. Heart: No cardiomegaly. No pericardial effusion. Lymph nodes: No enlarged lymph nodes. Vasculature: No aortic aneurysm. Gallbladder and bile ducts: There is pneumobilia partially visualized in the common bile duct and within the liver. Bones/joints: A compression fracture is noted in the T8 vertebral body, which could be chronic. Soft tissues: Unremarkable. IMPRESSION: 1. No evidence of significant pulmonary consolidation. Linear atelectasis seen at the lung bases. 2. T8 compression fracture which could be chronic. However, correlate with any point tenderness in this region for any acuity. Dictated and Authenticated by: Dorothea Hall MD. Ordering:SUJATA Weems MD
--- NOTE | 2022-11-25 19:10 | NUR.NOTE ---
Referral to Care Management to get referral to [facility] appt with Dr Abdulaziz Melchor this week for COPD Exacerbation.Nursing Note:
[2022-11-25] MEDS: Doxycycline Hyclate 100 MG CAP PO (19:16)
[2022-11-25] MEDS: predniSONE 20 MG TAB 60 MG PO (19:17)
--- NOTE | 2022-11-28 12:57 | ED.PROG_ITS ---
Date of service: 11/28/22 Time of Service: 12:57 Medical Decision Making I called the patient at his home to inquire as to how he was feeling. His answered and reported he was with his PCP following up as advised. She reported that she felt that he was slightly improved earlier this week but had a persiste nt cough. I advised her if they had any concerns that they should return to the emergency department at any time for reassessment. I also advised that if he became more short of breath or had any recurrent fevers he should return. She understood his return indications and expressed appreciation for my call. Discharge Plan Disposition Patient Disposition: Home Discharge Details Clinical Impression: Exacerbation of RAD (reactive airway disease) Primary Care Provider: Abudlaziz Melchor ED Provider: Dank Mcqueen Hannacroix Meds and New Rx's Prescriptions: New prednisone 20 mg tablet 60 mg PO DAILY 5 Days Qty: 15 0RF doxycycline monohydrate 100 mg tablet 100 mg PO BID 5 Days Qty: 10 0RF Continued solifenacin [Vesicare] 5 mg tablet 5 mg PO DAILY Qty: 90 3RF hydrocortisone-pramoxine 2.5-1 % (4g) cream 1 applic [place] QID PRN Qty: 4 2RF Eliquis 5 mg tablet 5 mg PO BID simvastatin 20 MG tablet 20 mg PO DAILY nitroglycerin [Nitrostat] 0.4 MG tablet, sublingual 0.4 mg PO PRN PRN albuterol sulfate 8.5 GM HFA aerosol inhaler 2 puff Inhalation PRN PRN omeprazole 20 MG tablet,delayed release (DR/EC) 20 mg PO PRN PRN sildenafil [Viagra] 100 MG tablet 50 mg PO PRN PRN oxybutynin chloride 5 mg tablet extended release 24hr 5 mg PO DAILY PRN acetaminophen 500 mg Tablet 500 mg PO BID tamsulosin [Flomax] 0.4 mg capsule 0.8 mg PO DAILY cholecalciferol (vitamin D3) [Vitamin D3] 2,000 UNIT capsule 2,000 unit PO DAILY clopidogrel [Plavix] 75 mg Tablet 75 mg PO DAILY AM vit [id number] 100 unit- 12.5 mg Capsule 1 cap PO DAILY Rx Instructions: 02/02/19 vit E two tabs unknown brand Discharge Instructions Instructions: Reactive Airways Disease (ED) Additional Instructions: Please read all of the information that accompanies these instructions. You were seen in the emergency department for your shortness of breath. Your CAT scan showed no sign of pneumonia. Your ultrasound at bedside showed no sign of heart failure. You likely have an exacerbation of your reactive airway disease for which you are receiving an antibiotic to prevent inflammation and a steroid pill. As we discussed, if you develop worsening shortness of breath have any chest pain or pass out at home please return to the emergency department. Please schedule an appointment with your primary care provider later this week. Discharge Data Discharge Date/Time-TO BE ENTERED AT DEPARTURE: 11/25/22 19:28
== END 2022-11-25 19:28 | disposition home or self-care (01) ==
PROVIDERS: Emergency Provider Emergency Medicine; PCP Internal Medicine Geriatric Medicine
DX: J45.901 Unspecified asthma with (acute) exacerbation (principal); I25.10 Atherosclerotic heart disease of native coronary artery without angina pectoris; I95.9 Hypotension, unspecified; J44.9 Chronic obstructive pulmonary disease, unspecified; K83.8 Other specified diseases of biliary tract; Z87.891 Personal history of nicotine dependence; Z20.822 Contact with and (suspected) exposure to COVID-19
CPT/HCPCS: 71250; 80053; 87040; 87637; 93005; 93308; 94640; 96361; 96365; 96368; 99284; 71046; 81003; 81015; 83605; 84484; 85025; 93010; 93971; J7512; J7620

== ENCOUNTER 2023-04-03 13:43 | Outpatient (REF) | payer MEDICARE, BC, SELFPAY ==
[2023-04-03 20:43] LABS: PSA, Diagnostic 1.7 ng/mL (<=6.5)
[2023-04-08 09:02] LABS: Testosterone, Total 465 ng/dL (240-950)
== END 2023-04-03 13:44 | disposition home or self-care (01) ==
LOC: LBN 13:43
PROVIDERS: PCP Internal Medicine Geriatric Medicine; Visit Provider Urology
DX: N53.19 Other ejaculatory dysfunction (principal); N13.8 Other obstructive and reflux uropathy; N40.1 Benign prostatic hyperplasia with lower urinary tract symptoms
CPT/HCPCS: 84403; 84153

== ENCOUNTER 2023-05-03 16:21 | Emergency (ER) | payer OTHER, SELFPAY ==
[2023-05-03] VITALS (43 sets, daily range): BP systolic 105–160; BP diastolic 55–123; PULSE 68–115; RESP 10–29; TEMP 37.2; O2SAT 85–99
--- NOTE | 2023-05-03 16:45 | RT.EKG_ITS ---
APPROVED REPORT Exam: Resting ECG Reason for Exam: weakness/SOB Patient Location: E HR:84 bpm ECG Measurements Heart Rate 84 AXIS MI 167 P 46 QRSd 128 QRS -29 QT 384 T -16 QTc 454 Conclusion Sinus rhythm...normal P axis, V-rate 60- 99 Right bundle branch block...QRSd>120, terminal axis(90,270) Normal sinus rhythm at a rate of 84 with right bundle branch block pattern left axis deviation?b ifascicular block. T wave inversion in lead III. MI and QTc within normal limits. Compared to prio r patient now has complete right bundle branch block. Prior dated earlier this year. No acute injur y pattern.
--- NOTE | 2023-05-03 16:54 | ED.GENADUL_ITS ---
Discharge Plan Discharge Details Chief Complaint: GenMedical Clinical Impression: Hx of falling, Shortness of breath, Acute low back pain Primary Care Provider: Abdulaziz Melchor ED Provider: Dank Mcqueen Home Meds and New Rx's Prescriptions: No Action hydrocortisone-pramoxine 2.5-1 % (4g) cream 1 applic TN QID PRN Qty: 4 2RF Eliquis 5 mg tablet 5 mg PO BID tamsulosin 0.4 mg capsule 0.8 mg PO DAILY simvastatin 20 MG tablet 20 mg PO DAILY nitroglycerin [Nitrostat] 0.4 MG tablet, sublingual 0.4 mg PO PRN PRN albuterol sulfate 8.5 GM HFA aerosol inhaler 2 puff Inhalation PRN PRN omeprazole 20 MG tablet,delayed release (DR/EC) 20 mg PO PRN PRN sildenafil [Viagra] 100 MG tablet 50 mg PO PRN PRN oxybutynin chloride 5 mg tablet extended release 24hr 5 mg PO DAILY PRN acetaminophen 500 mg Tablet 500 mg PO BID cholecalciferol (vitamin D3) [Vitamin D3] 2,000 UNIT capsule 2,000 unit PO DAILY vit [id number] 100 unit- 12.5 mg Capsule 1 cap PO DAILY Rx Instructions: 02/02/19 vit E two tabs unknown brand Medical Decision Making This is an uncomfortable appearing mildly tachycardic but normothermic 77-year-old male with likely syncope and left leg pain in the setting of a fall. Based on generalized weakness and tachycardia with borderline soft blood pressure I am concerned for the possibility of sepsis so I will order 2 sets of blood cultures, antibiotics with ceftriaxone and vancomycin, and a lactate. Patient reports that he has possibly been exposed to ticks. He denies any specific tick bites however will also cover with doxycycline and obtain an acute tickborne panel. His left knee has no obvious signs of trauma but he is 3 months status post left knee replacement and reports striking his left knee so we will obtain plain films. He is able to straight leg raise so I am not concern for quadriceps tendon rupture. No pain out of proportion to suggest necrotizing soft tissue infection. He does have midline lumbar spinal tenderness and given his fall will obtain a CT of his lumbar spine. Given his concern for possible syncope will obtain d-dimer given shortness of breath. Based on his low back pain and age I am suspicious for a fracture. He is neurologically intact distally. He is anticoagulated which raises the potential of spinal epidural hematoma. He has had no recent instrumentation to his back. He has had no fevers to suggest spinal epidural abscess. He does report baseline urinary incontinence which has not changed. Given his history of trauma if his CT scan shows any abnormalities or concerns in his lumbar spine I do not feel that the patient may require an MRI. We will COVID swab given shortness of breath. 5:22 PM CBC lacks anemia thrombocytopenia and leukocytosis. Venous blood gas with no hypercarbia nor acidemia. Lactate mildly elevated at 1.5 mmol/L. 7:15 PM Basic metabolic panel with no CHAYA. No acute electrolyte abnormalities. Negative troponin. Will order urinalysis given history of urinary obstruction with BPH to ensure patient does not have a urinary tract infection. 8:10 PM I signed patient out to Dr. Goyal pending CTA PE and left knee plain film and CT head. Patient will require an ambulatory trial. His oxygen saturation was borderline at 88%. He certainly is obese and could certainly have a component of obstructive sleep apnea. He may have pulmonary hypertension as well which could have led to his syncope. He may benefit from an echocardiogram. If he is not able to mobilize he will likely benefit from physical therapy consultation and possibly hospitalization to obtain these studies. Chronic conditions affecting the care of the patient: Atrial fibrillation History obtained from an outside historian: N/A External record review: Chart review at [facility] [place] Diagnostic interpretations performed by me: [Per my independent interpretation chest x-ray shows:] No acute cardiopulmonary process on single view chest Per my independent interpretation EKG shows: Normal sinus rhythm at a rate of 84 with right bundle branch block pattern left axis deviation??bifascicular block. T wave inversion in lead III. TN and QTc within normal limits. Compared to prior patient now has complete right bundle branch block. Prior dated earlier this year. No acute injury pattern. Medications: Ondansetron and vancomycin Social determinants of health affecting disposition: N/A Management discussed with: Dr. Goyal Treatment/interventions considered: Hospitalization but deferred given incomplete evaluation Response to therapies provided: Pain improved slightly following acetaminophen HPI General Date/Time Provider Initiated Documentation: 05/03/23 16:54 . HPI Narrative: This is a 77-year-old male on apixaban in the setting of atrial fibrillation now in the emergency department in the setting of chills decreased appetite and shortness of breath for the past 2 nights. Patient reports that he was at a job site and was exposed to mold. Last night he fell. He is unsure how he fell but he feels as if he got his left knee caught underneath him. He was reportedly laying on the ground for a long time. He is not sure whether or not he passed out before he fell. He is not sure whether or not he hit his head. He has been ambulatory since his fall but he has had back pain. He reports pain in the middle of his lower back. He has baseline urinary incontinence and this is not new. He has not been nauseous nor vomiting. He has no chest pain but does feel short of breath. He denies fevers but he has had chills. He had a left knee replacement approximately 3 months ago. He has been less active for the past day since his fall. He had no preceding chest pain but he did have worsening shortness of breath. He denies routine tobacco, ethanol, and illicits. Related Data Home Medications Medication Instructions Recorded Confirmed albuterol sulfate 90 mcg/actuation 2 puff inhalation PRN PRN 09/28/13 05/03/23 aerosol inhaler nitroglycerin 0.4 mg sublingual 0.4 mg PO PRN PRN 09/28/13 05/03/23 tablet (Nitrostat) omeprazole 20 mg tablet,delayed 20 mg PO PRN PRN 09/28/13 05/03/23 release simvastatin 20 mg tablet 20 mg PO DAILY 09/28/13 05/03/23 sildenafil 100 mg tablet (Viagra) 50 mg PO PRN PRN 10/22/15 05/03/23 cholecalciferol (vitamin D3) 50 2,000 unit PO DAILY 06/28/17 04/03/23 mcg (2,000 unit) capsule (Vitamin D3) vit E 100 unit-zinc 12.5 1 cap PO DAILY 02/02/19 05/03/23 [id number]-bilberry-herb #261 capsule hydrocortisone-pramoxine 2.5 %-1 % 1 applic TN QID PRN rectal pain #4 09/23/19 05/03/23 (4g) rectal cream grams apixaban 5 mg tablet (Eliquis) 5 mg PO BID 05/29/20 05/03/23 acetaminophen 500 mg tablet 500 mg PO BID 10/02/21 05/03/23 oxybutynin chloride 5 mg 5 mg PO DAILY PRN 10/02/21 05/03/23 tablet,extended release 24 hr tamsulosin 0.4 mg capsule 0.8 mg PO DAILY 04/03/23 05/03/23 Previous Rx's Medication Instructions Recorded hydrocortisone-pramoxine 2.5 %-1 % 1 applic TN QID PRN rectal pain #4 09/23/19 (4g) rectal cream grams Allergies Allergy/AdvReac Type Severity Reaction Status Date / Time celecoxib [From Celebrex] AdvReac Severe Severe rash Unverified 05/03/23 16:42 ibuprofen [From Advil] AdvReac Intermediate upset Unverified 05/03/23 16:42 stomach General Stated Complaint: GenMedical EVELYNE: 2 PFSH All Active Problems Hx of falling (Acute) Shortness of breath (Acute) Acute low back pain (Acute) Anejaculation (Acute) BPH w urinary obs/LUTS (Acute) Chest pain (Acute) Palpitation (Acute) Kidney stones (Chronic) Urgency incontinence (Acute 09/08/16) Frequency of urination (Acute 09/08/16) Incarcerated ventral hernia (Acute 10/11/14) Atrial fibrillation (Chronic) CAD (coronary artery disease) (Chronic) a. s/p stenting Obstructive sleep apnea (Chronic) Hyperlipidemia (Chronic) H/O surgical procedure (Chronic) a. coronary stenting b. open cholecystectomy c. ERCP Medical History Atrial fibrillation CAD (coronary artery disease), [facility] coronary artery status post stenting GERD (gastroesophageal reflux disease) Hyperlipidemia DIXIE (obstructive sleep apnea) Surgical History Cholecystectomy open Coronary Stent ERCP Hernia Repair, Incisional Laparoscopic Social History Smoking/Tobacco Use Status: Former Tobacco Use Quit Date: 10/05/1967 Smoking risk assessment performed?: Yes Alcohol Intake: former Drug use: Never Substance use type: does not use Housing: house Do you feel safe at home: Yes Do you feel safe in your relationship?: Yes Exam Narrative Exam Narrative: General: Well-appearing in no acute distress speaking in complete sentences. Head: Normocephalic, atraumatic. Eye: . Extraocular eye movements intact. No conjunctival injection. No scleral icterus. Ear, nose, mouth, throat: Grossly normal inspection. Normal voice, handling secretions normally. Neck: Trachea midline. Cardiovascular: Well-perfused distal extremities. Rapid regular rate and rhythm Respiratory: Nonlabored respiration.Clear lungs bilaterally. Gastrointestinal: Nondistended abdomen. Soft nontender. Back: No step-offs nor deformities. Midline lumbar spinal tenderness. Musculoskeletal: No edema. Moving all 4 extremities spontaneously. Left knee with well-healed incision. Patient is able to straight leg raise on the left. He is able to bend his left knee to approximately 45 degrees. There is no significant left knee effusion. No calf tenderness. 5 out of 5 bilateral lower extremity strength in dorsi and plantarflexion at the feet. Sensation intact in the dorsal webspaces between the great and first toes bilaterally. Warm well perfused feet. Skin: Normal for age and race, grossly normal temperature and turgor. No acute rash. Neurologic: Alert and appropriate, no apparent acute deficits. Psychiatric: Mood and manner are appropriate. Grooming and personal hygiene are appropriate. Course Vital Signs Vital signs: Vital Signs Temperature 37.2 C 05/03/23 16:38 Pulse 115 H 05/03/23 16:38 Respiratory Rate 24 05/03/23 16:38 Blood Pressure 105/64 05/03/23 16:38 Pulse Oximetry 99 05/03/23 16:38 Temperature 37.2 C 05/03/23 16:38 Temperature Source Oral 05/03/23 16:38 Pulse 115 H 05/03/23 16:38 Respiratory Rate 24 05/03/23 16:38 Blood Pressure 105/64 05/03/23 16:38 Pulse Oximetry 99 05/03/23 16:38 Oxygen Delivery Method Room Air 05/03/23 16:38 Oxygen Flow Rate 0 05/03/23 16:38 Pain Level 6 05/03/23 16:38
[2023-05-03 17:16] LABS: BE (Venous) 3 mmol/L (-2-3); HCO3 (Venous) 26 mmol/L (23-28); O2 Sat (Venous) 64 %; TCO2 (Venous) 23 mmol/L (24-29); pCO2 (Venous) 37 mmHg (41-51); pH (Venous) 7.46 (7.31-7.41); pO2 (Venous) 31 mmHg
[2023-05-03 17:18] LABS: Abs Immature Grans 0.04 10^3/uL (0.0-0.06); Absolute Basophil Count 0.03 10^3/uL (0.0-0.2); Absolute Eosinophil Count 0.01 10^3/uL (0.0-0.7); Absolute Lymphocyte Count 1.03 10^3/uL (1.2-3.4); Absolute Monocyte Count 0.97 10^3/uL (0.1-0.8); Absolute Neutrophil Count 5.42 10^3/uL (1.2-6.7); Basophils % 0.4; Eosinophils % 0.1; HCT 43.8 % (40.0-50.0); HGB 15.3 g/dL (13.5-17.5); Immature Grans % 0.5; Lactate 1.5 mmol/L (0.6-1.4); Lymphocytes % 13.7; MCH 31.2 pg (27.0-33.0); MCHC 34.9 % (32.0-36.0); MCV 89 fL (80-95); MPV 9.6 fL (8.0-11.0); Monocytes % 12.9; Neutrophils % 72.4; Platelet Count 155 10^3/uL (130-400); RDW-SD 39.5 fL
[2023-05-03] MEDS: Normal Saline 500 ML IV (17:28)
[2023-05-03] MEDS: cefTRIAXone 2 GM/50 ML BAG IVPB (17:29)
[2023-05-03] MEDS: Acetaminophen 500 MG TAB 1000 MG PO ×2 (17:29→18:13)
[2023-05-03] MEDS: Doxycycline Hyclate 100 MG CAP PO (17:29)
[2023-05-03 17:38] LABS: Anion Gap 9.9 mmol/L (3-11); BUN 17 mg/dL (7-18); CO2 26.1 mmol/L (21.0-32.0); CREATININE 1.3 mg/dL (0.70-1.30); Calcium 8.5 mg/dL (8.5-10.1); Chloride 100 mmol/L (98-107); Estimated GFR 56.93 (mL/min/1.73m2); Glucose 111 mg/dL (74-106); Potassium 4.1 mmol/L (3.5-5.1); Sodium 136 mmol/L (136-145); Troponin I < 50 ng/L (<or=60)
--- NOTE | 2023-05-03 17:45 | DI.RAD_ITS ---
Exam(s) XR PORTABLE CHEST AP EXAM: XR PORTABLE CHEST AP CLINICAL HISTORY: Shortness of breath. TECHNIQUE: 2D digital imaging was performed. COMPARISON: No exams were available for comparison FINDINGS: Single AP portable view. Heart size is upper normal. The mediastinum is not widened. Lungs are clear. No infiltrates nor obvious pleural effusions. IMPRESSION: No acute pulmonary findings on this single AP portable view of the chest. DATA REPOSITORY: RADIATION DOSE DELIVERED:
--- NOTE | 2023-05-03 17:45 | DI.CT_ITS ---
Exam(s) CT CHEST PE CTA EXAM: CT CHEST PE CTA CLINICAL HISTORY: Shortness of breath syncope. TECHNIQUE: Imaging Protocol: CT angiography of the chest was performed using pulmonary embolus norma col. Multi planar reconstructions were performed. CONTRAST MATERIAL: Intravenous: Omnipaque 350 Contrast volume: 100 cc COMPARISON: CT CT CHEST WO from 11/25/2022 FINDINGS: CHEST: PULMONARY ARTERIES: There are no intraluminal filling defects to suggest acute pulmonary emboli. LUNGS: There is mild infiltrate in the posterior basal segment of the right lower lobe. Milder incre ased markings noted at same location in the opposite-left lung. There are no pleural effusions. No ominous pulmonary nodules. No significant focal findings in trachea and mainstem bronchi.. MEDIASTINUM: There is no hilar nor mediastinal adenopathy. CARDIAC: Heart size is upper normal. There is no pericardial effusion.Caliber of the thoracic aorta is within normal limits. No evidence of dissection. There is no significant shift of the interventri cular septum. PARTIALLY VISUALIZED UPPERMOST ABDOMEN: No obvious findings OSSEOUS: No significant osseous lesions.Compression fracture of T8 is again noted.. IMPRESSION: 1. No evidence of acute pulmonary emboli. No evidence of pulmonary infarction. 2. Small area of subpleural infiltrate in the posterior basal segment right lower lobe minimal increa sed markings in the posterior basal segment of the left lower lobe. 3. There are no pleural effusions and there is no intrathoracic adenopathy. RADIATION DOSE DELIVERED: 366.04mGy.cm Total DLP DATA REPOSITORY: All CT scans at this facility are submitted to the National Radiology Data Registry (NRDR) Dose Index Registry (DIR) with the [employer] (ACR). RADIATION OPTIMIZATION: All CT scans at this facility use at least one of these dose optimization te chniques: automated exposure control; mA and/or kV adjustment per patient size (includes targeted exa ms where dose is matched to clinical indication); or iterative reconstruction.
[2023-05-03 17:53] LABS: D-Dimer 856 ng/mlFEU (<500)
--- NOTE | 2023-05-03 17:55 | DI.VRAD_ITS ---
PROCEDURE INFORMATION: Exam: XR Chest Exam date and time: 05/03/2023 17:40 Age: 77 years old Clinical indication: Shortness of breath TECHNIQUE: Imaging protocol: Radiologic exam of the chest. Views: 1 view. COMPARISON: CT CHEST WO 11/25/2022 17:51 FINDINGS: Lungs: Low lung volumes. No asya airspace consolidation on portable imaging. Pleural spaces: No pleural effusion. No pneumothorax. Heart/Mediastinum: No cardiomegaly. Bones/joints: No acute fracture. IMPRESSION: Negative portable chest. Dictated and Authenticated by: Merary Robin MD. Ordering:SUJATA Weems MD
--- NOTE | 2023-05-03 18:00 | DI.CT_ITS ---
Exam(s) CT THORACIC LUMBAR SPINE WO EXAM: CT THORACIC LUMBAR SPINE WO CLINICAL HISTORY: Low back pain status post fall. TECHNIQUE: Imaging Protocol: Axial computed tomography images with coronal and sagittal reformatted images were created and reviewed. CONTRAST MATERIAL: None COMPARISON: No exams were available for comparison FINDINGS: THORACIC SPINAL COLUMN: Compression fracture of T8 again noted, unchanged from CT scan of November 24. No new fractures nor listhesis. No osseous compromise of the spinal canal. LUMBO SACRAL SPINAL COLUMN: No evidence of acute fractures. Mild degenerative anterolisthesis of L5 upon S1 due to facet arthropathy. There are no pars defects at this level. Facet joint degenerative changes also evident at L4-5 level. No evidence facet malalignment. No osseous compromise of the lumbosacral spinal column. IMPRESSION: No evidence of acute fractures. Compression fracture of T8 is unchanged from prior CT scan of November 2022. RADIATION DOSE DELIVERED: 1,050.1mGy.cm Total DLP DATA REPOSITORY: All CT scans at this facility are submitted to the National Radiology Data Registry (NRDR) Dose Index Registry (DIR) with the [employer] (ACR). RADIATION OPTIMIZATION: All CT scans at this facility use at least one of these dose optimization te chniques: automated exposure control; mA and/or kV adjustment per patient size (includes targeted exa ms where dose is matched to clinical indication); or iterative reconstruction.
[2023-05-03] MEDS: Ondansetron O.D.T. 4 MG TABEF PO (18:13)
[2023-05-03] MEDS: Omnipaque 350 MG/ML 100 ML BTL IJ (19:45)
--- NOTE | 2023-05-03 19:45 | DI.CT_ITS ---
Exam(s) CT HEAD WO EXAM: CT HEAD WO CLINICAL HISTORY: History of fall head strike. TECHNIQUE: Imaging Protocol: Axial computed tomography images with coronal and sagittal reformatted images were created and reviewed COMPARISON: No exams were available for comparison FINDINGS: There are no skull fractures. Nasal bone irregularity probably related to prior fracture. There is c ircumferential mucosal thickening in both maxillary sinuses. There is a surgical defect in medial wa ll of both maxillary sinuses evident. Also mucosal thickening in the sphenoid sinuses not associated with fluid levels. It is mild mucosal thickening in the frontal sinuses without fluid levels. Ethm oidal air cells exhibit mucosal thickening. Mastoid air cells are clear. There is no evidence of intracranial hemorrhage, mass effect, or shift of midline structures. There are no extra-axial fluid collections. The ventricles are not enlarged or shifted and there is no blo od within the ventricular system nor within the basal cisterns. There is mild periventricular hypodensity consistent with an element of chronic small vessel disease. IMPRESSION: No acute intracranial findings on this noninfused CT scan of the brain. Paranasal sinus findings as above head with evidence of surgical defects in the medial bowie of both maxillary sinuses. No acute fluid levels in the paranasal sinuses. RADIATION DOSE DELIVERED: 699.56mGy.cm Total DLP DATA REPOSITORY: All CT scans at this facility are submitted to the National Radiology Data Registry (NRDR) Dose Index Registry (DIR) with the [employer] (ACR). RADIATION OPTIMIZATION: All CT scans at this facility use at least one of these dose optimization te chniques: automated exposure control; mA and/or kV adjustment per patient size (includes targeted exa ms where dose is matched to clinical indication); or iterative reconstruction.
[2023-05-03 20:07] LABS: Influenza A PCR Negative (Negative); Influenza B PCR Negative (Negative); RSV PCR Negative (Negative)
[2023-05-03 20:11] LABS: COVID-19 PCR Positive (Negative); Source NASOPHARYNX
[2023-05-03] MEDS: Normal Saline - Diluent 50 ML VIAL IJ (20:18)
[2023-05-03] MEDS: Normal Saline Flush 10 ML SYR IVP (20:18)
--- NOTE | 2023-05-03 20:26 | DI.VRAD_ITS ---
PROCEDURE INFORMATION: Exam: CT Head Without Contrast Exam date and time: 05/03/2023 8:06 PM Age: 77 years old Clinical indication: Injury or trauma; Blunt trauma (contusions or hematomas); Injury date: 05/03/23; Injury details: History of fall head strike TECHNIQUE: Imaging protocol: Computed tomography of the head without contrast. Radiation optimization: All CT scans at this facility use at least one of these dose optimization techniques: automated exposure control; mA and/or kV adjustment per patient size (includes targeted exams where dose is matched to clinical indication); or iterative reconstruction. COMPARISON: No relevant prior studies available. FINDINGS: Brain: Mild volume loss No hemorrhage. Mild white matter disease. No mass effect. Cerebral ventricles: No ventriculomegaly. Paranasal sinuses: Mild mucosal thickening. No fluid levels. Mastoid air cells: Visualized mastoid air cells are well aerated. Bones/joints: Nasal bone/nasal septal fractures. Soft tissues: Unremarkable. IMPRESSION: No acute intracranial hemorrhage Nasal bone/nasal septal fractures Dictated and Authenticated by: Luke Gerber MD. Ordering:SUJATA Weems MD
--- NOTE | 2023-05-03 20:31 | DI.RAD_ITS ---
Exam(s) XR KNEE LT 3V AP,LAT,MICHAEL EXAM: XR KNEE LT 3V AP,LAT,MICHAEL CLINICAL HISTORY: Left knee pain. TECHNIQUE: 2D digital imaging was performed. COMPARISON: No exams were available for comparison FINDINGS: [address] No fracture or loosening evident. No radiographic evidence osteomyelitis. IMPRESSION: No acute osseous findings. DATA REPOSITORY: RADIATION DOSE DELIVERED:
--- NOTE | 2023-05-03 20:31 | DI.VRAD_ITS ---
PROCEDURE INFORMATION: Exam: CT Thoracic Spine Without Contrast Exam date and time: 05/03/2023 19:53 Age: 77 years old Clinical indication: Injury or trauma; Blunt trauma (contusions or hematomas); Injury date: 05/03/23; Injury details: Low back pain status post fall TECHNIQUE: Imaging protocol: Computed tomography of the thoracic spine without contrast. Radiation optimization: All CT scans at this facility use at least one of these dose optimization techniques: automated exposure control; mA and/or kV adjustment per patient size (includes targeted exams where dose is matched to clinical indication); or iterative reconstruction. COMPARISON: CT CHEST WO 11/25/2022 17:51 FINDINGS: Bones/joints: Minimal loss of height upper endplates in the proximal thoracic spine, similar to previous imaging. Moderate anterior deformity of T8 also similar. Minimal disc space narrowing. Demineralization. No acute fracture or subluxation. Soft tissues: No suspicious lesions. IMPRESSION: 1. No acute bony pathology. 2. Chronic findings as described. PROCEDURE INFORMATION: Exam: CT Lumbar Spine Without Contrast Exam date and time: 05/03/2023 19:53 Age: 77 years old Clinical indication: Injury or trauma; Blunt trauma (contusions or hematomas); Injury date: 05/03/23; Injury details: Low back pain status post fall TECHNIQUE: Imaging protocol: Computed tomography of the lumbar spine without contrast. Radiation optimization: All CT scans at this facility use at least one of these dose optimization techniques: automated exposure control; mA and/or kV adjustment per patient size (includes targeted exams where dose is matched to clinical indication); or iterative reconstruction. COMPARISON: CT ABDOMEN PELVIS W 06/08/2020 11:26 FINDINGS: Bones/joints: No acute fracture or subluxation. The bones are demineralized. Distal predominant degenerative changes. Trace anterolisthesis L5 over S1. At least moderate multilevel distal neural foraminal stenosis. Soft tissues: No suspicious lesions. IMPRESSION: 1. No acute bony pathology. 2. Chronic findings as described. Dictated and Authenticated by: Merary Robin MD. Ordering:SUJATA Weems MD
--- NOTE | 2023-05-03 20:34 | DI.VRAD_ITS ---
PROCEDURE INFORMATION: Exam: CTA Chest With Contrast Exam date and time: 05/03/2023 20:09 Age: 77 years old Clinical indication: Shortness of breath and other: Syncope; Patient HX: SOB, syncope TECHNIQUE: Imaging protocol: Computed tomographic angiography of the chest with contrast. Exam focused on the arteries. 3D rendering (Not supervised by radiologist): MIP and/or 3D reconstructed images were created by the technologist. Radiation optimization: All CT scans at this facility use at least one of these dose optimization techniques: automated exposure control; mA and/or kV adjustment per patient size (includes targeted exams where dose is matched to clinical indication); or iterative reconstruction. Contrast material: OMNIPAQUE 350; Contrast volume: 100 ml; Contrast route: INTRAVENOUS (IV); COMPARISON: CT CHEST WO 11/25/2022 17:51 FINDINGS: Pulmonary arteries: No pulmonary emboli. Aorta: No aortic aneurysm. No aortic dissection. Lungs: Subsegmental atelectasis appears mild. No consolidation to suggest pneumonia or pulmonary infarct. Pleural spaces: No pneumothorax. No pleural effusion. Heart: Mild cardiomegaly. Trace pericardial fluid appears likely physiologic. Lymph nodes: No enlarged lymph nodes. Bones/joints: No acute fracture or subluxation. Please see dedicated thoracic spine imaging. Soft tissues: No suspicious lesions. IMPRESSION: No pulmonary emboli are seen. Dictated and Authenticated by: Merary Robin MD. Ordering:SUJATA Weems MD
--- NOTE | 2023-05-03 20:37 | DI.VRAD_ITS ---
PROCEDURE INFORMATION: Exam: XR Left Knee Exam date and time: 05/03/2023 20:23 Age: 77 years old Clinical indication: Pain; Left; Prior surgery; Surgery date: 6+ months; Surgery type: Knee replacement TECHNIQUE: Imaging protocol: Radiologic exam of the left knee. Views: 3 views. COMPARISON: No relevant prior studies available. FINDINGS: Bones/joints: Left total knee arthroplasty in anatomic alignment with satisfactory appearance of the hardware. Small joint effusion. No acute fracture or listhesis. Soft tissues: Unremarkable. Vasculature: Atherosclerosis. IMPRESSION: 1. Left total knee arthroplasty in anatomic alignment with satisfactory appearance of the hardware. 2. Small joint effusion. Dictated and Authenticated by: Merary Robin MD. Ordering:SUJATA Weems MD
--- NOTE | 2023-05-03 21:05 | ED.PROG_ITS ---
Date of service: 05/03/23 Time of Service: 21:05 Medical Decision Making 77-year-old male was signed out to me by my colleague Dr. Mcqueen for follow-up on imaging and labs. Please refer to his HPI, physical exam, assessment and plan. Is a brief history patient has had chills, shortness of breath and cough, he had a very thorough work-up was performed by my colleague. CT of the lumbar and thoracic spine negative for acute process, CT head negative for acute process aside for old nasal trauma. No PEs were noted on CT of the chest. Joint/knee x-rays are negative, no other acute process otherwise. Laboratory work-up demonstrated no white count bandemia or left shift. There was mild lymphopenia. D-dimer elevated, CTA negative for PE. VBG stable with no evidence of CO2 retention. Lactate mildly elevated at 1.5. Electrolytes normal, flu and RSV were negative, COVID was positive. Tick and Lyme panel pending. On reassessment patient shows no neurologic deficits. Patient is notably stable. Oxygenation is now stable at room air at 95% with activity and conversation. Blood pressure stable with no signs of hypotension. Heart rate normal and 70 with no evidence of tachycardia. Symptoms inconsistent with septic/septic shock. COVID is positive. In hindsight symptoms patient's appear consistent with mild COVID. Dr. Mcqueen and I discussed steroids, and we agreed to start Decadron here. Patient is a candidate for Paxlovid therapy, we will start him with renal dosing. I had a long discussion with the patient regarding risks and benefits of admission versus discharge. At this time the patient is clinically stable and does appear stable for discharge but we did discuss potential options and benefits of admission. After long discussion patient is requesting to go home rather than be admitted. We will respect the patient's wishes. He otherwise feels much better and would like to be at home with his . She has already had COVID recently. Patient will be discharged home with Paxlovid medication. First dose was given here. Out of concern for potential development of bacterial superimposed pneumonia, we will start the patient on doxycycline prophylactically. We will give Symbicort inhaler for home use. Recommend decreasing his Eliquis dose to 2.5 mg twice daily, recommend cessation of statin until 5 days after Paxlovid, and recommend holding tamsulosin while on the Paxlovid per FDA insert recommendations. Discussed red flags for which to return. Discussed the case with the patient's who agrees with plan. I have extensively reviewed the treatment plan and discharge instructions with the patient and their family. I have addressed all patient concerns at this time. The patient and family was made aware of what symptoms to monitor for that would warrant a return to the emergency department. Discussed the plan with the patient and family, they demonstrate verbal understanding and agreement with our assessment and plan at this time. The documentation in this chart was dictated using [employer] dictation software. Please excuse any dictation errors. FINDINGS: Brain: Mild volume loss No hemorrhage. Mild white matter disease. No mass effect. Cerebral ventricles: No ventriculomegaly. Paranasal sinuses: Mild mucosal thickening. No fluid levels. Mastoid air cells: Visualized mastoid air cells are well aerated. Bones/joints: Nasal bone/nasal septal fractures. Soft tissues: Unremarkable. IMPRESSION: No acute intracranial hemorrhage Nasal bone/nasal septal fractures Thank you for allowing us to participate in the care of your patient. FINDINGS: Pulmonary arteries: No pulmonary emboli. Aorta: No aortic aneurysm. No aortic dissection. Lungs: Subsegmental atelectasis appears mild. No consolidation to suggest pneumonia or pulmonary infarct. Pleural spaces: No pneumothorax. No pleural effusion. Heart: Mild cardiomegaly. Trace pericardial fluid appears likely physiologic. Lymph nodes: No enlarged lymph nodes. Bones/joints: No acute fracture or subluxation. Please see dedicated thoracic spine imaging. Soft tissues: No suspicious lesions. IMPRESSION: No pulmonary emboli are seen. Thank you for allowing us to participate in the care of your patient. Dictated and Authenticated by: Merary Robin MD 05/03/2023 8:33 PM Eastern Time ([place] & [place]) FINDINGS: Bones/joints: Left total knee arthroplasty in anatomic alignment with satisfactory appearance of the hardware. Small joint effusion. No acute fracture or listhesis. Soft tissues: Unremarkable. Vasculature: Atherosclerosis. IMPRESSION: 1. Left total knee arthroplasty in anatomic alignment with satisfactory appearance of the hardware. 2. Small joint effusion. Thank you for allowing us to participate in the care of your patient. Dictated and Authenticated by: Merary Robin MD 05/03/2023 8:36 PM Eastern Time ([place]) FINDINGS: Bones/joints: No acute fracture or subluxation. The bones are demineralized. Distal predominant degenerative changes. Trace anterolisthesis L5 over S1. At least moderate multilevel distal neural foraminal stenosis. Soft tissues: No suspicious lesions. IMPRESSION: 1. No acute bony pathology. 2. Chronic findings as described. Thank you for allowing us to participate in the care of your patient. Dictated and Authenticated by: Merary Robin MD 05/03/2023 8:30 PM Eastern Time ([place] & [place]) FINDINGS: Bones/joints: Minimal loss of height upper endplates in the proximal thoracic spine, similar to previous imaging. Moderate anterior deformity of T8 also similar. Minimal disc space narrowing. Demineralization. No acute fracture or subluxation. Soft tissues: No suspicious lesions. IMPRESSION: 1. No acute bony pathology. 2. Chronic findings as described. Sign Out Sign Out Data: Sign Out Comment: Please follow-up CT scans left knee radiograph urinalysis and complete ambulatory trial. Patient may require hospitalization for MRI. Last updated by Dank Mcqueen MD at 05/03/23 20:13 Discharge Plan Disposition Patient Disposition: Home Discharge Details Clinical Impression: COVID-19, Hx of falling, Shortness of breath, Acute low back pain Primary Care Provider: Abdulaziz Melchor ED Provider: [place] Goyal Home Meds and New Rx's Prescriptions: New doxycycline hyclate 100 mg tablet 100 mg PO BID Qty: 20 0RF budesonide-formoterol [Symbicort] 160-4.5 mcg/actuation HFA aerosol inhaler 2 puff inhalation BID Qty: 10.2 0RF No Action hydrocortisone-pramoxine 2.5-1 % (4g) cream 1 applic CO QID PRN Qty: 4 2RF Eliquis 5 mg tablet 5 mg PO BID tamsulosin 0.4 mg capsule 0.8 mg PO DAILY simvastatin 20 MG tablet 20 mg PO DAILY nitroglycerin [Nitrostat] 0.4 MG tablet, sublingual 0.4 mg PO PRN PRN albuterol sulfate 8.5 GM HFA aerosol inhaler 2 puff Inhalation PRN PRN omeprazole 20 MG tablet,delayed release (DR/EC) 20 mg PO PRN PRN sildenafil [Viagra] 100 MG tablet 50 mg PO PRN PRN oxybutynin chloride 5 mg tablet extended release 24hr 5 mg PO DAILY PRN acetaminophen 500 mg Tablet 500 mg PO BID cholecalciferol (vitamin D3) [Vitamin D3] 2,000 UNIT capsule 2,000 unit PO DAILY vit [id number] 100 unit- 12.5 mg Capsule 1 cap PO DAILY Rx Instructions: 02/02/19 vit E two tabs unknown brand Discharge Instructions Instructions: COVID-19 (Coronavirus Disease 2019) (ED) Additional Instructions: At this time the full work-up performed by Dr. Mcqueen has shown that you do have COVID-19. In addition to this the remainder of your work-up is very reassuring. After discussion together you have elected to go home. You have been given Paxlovid. Please take this as directed on the package. This can interact with some of your medications, and so please abide by the followin. Please stop taking your simvastatin while on Paxlovid, and do not restart it until you have been off of Paxlovid for 5 days. 2. Please cut your Eliquis dose down to 2.5 mg twice daily while on your Paxlovid. 3. Please hold off on taking your Flomax while on the Paxlovid. You can restart your Flomax once you are done. I have sent a prescription of doxycycline and antibiotic to your pharmacy on file. Please take this as directed to prevent a pneumonia. You have also been given a Symbicort inhaler. Please take this, 2 puffs every 12 hours in addition to your albuterol. It is very important that you monitor your symptoms closely and pay very close attention to your work of breathing. If you notice that your work of breathing is worsening or you are having a harder time breathing it is important to come back immediately for reassessment. If you notice any worsening of your symptoms, or any new symptoms such as vomiting, diarrhea, fever, chills, shortness of breath, chest pain, numbness, weakness, or fainting , please return immediately to the emergency department for reevaluation. Please follow up with your primary care provider as soon as possible for reassessment and reevaluation. As always, it was a pleasure participating in your medical care today. Referrals: Abdulaziz Melchor [Primary Care Provider] -
[2023-05-03] MEDS: Dexamethasone 10 MG/ML VIAL 12 MG IVP (21:16)
[2023-05-03 21:18] LABS: Bilirubin Negative (Negative); Blood Negative (Negative); Clarity Clear (Clear); Glucose Negative (Negative); Ketones 15 mg/dL (Negative); Leukocyte Esterase Negative (Negative); Nitrite Negative (Negative); Urobilinogen 0.2 mg/dL (Up to 0.2); pH 5.5 (5-8)
[2023-05-03 21:25] LABS: Bacteria Negative HPF (Negative); C & S Indicated? No; Casts Negative LPF (Negative); Crystals Negative HPF (Negative); Epithelial Cells Rare HPF (Negative); Mucus Trace (Negative); RBC 0-2 HPF (0-2); WBC 0-2 HPF (0-5)
[2023-05-03] MEDS: Budesonide/Formoterol 160/4.5 6 GM 60 PUFF INH IH (22:03)
[2023-05-05 09:57] LABS: Lyme Ab w Rflx to Lyme Confirm Negative (Negative)
[2023-05-07 10:28] LABS: Anaplasma phagocytophilum Negative (Negative); B. miyamotoi PCR Negative (Negative); Babesia divergens/MO-1 Negative (Negative); Babesia duncani Negative (Negative); Babesia microti Negative (Negative); Ehrlichia chaffeensis Negative (Negative); Ehrlichia ewingii/canis Negative (Negative); Ehrlichia muris eauclairensis Negative (Negative)
== END 2023-05-03 21:56 | disposition home or self-care (01) ==
PROVIDERS: Emergency Medicine; Emergency Provider Student in an Organized Health Care Education/Training Program; PCP Internal Medicine Geriatric Medicine
DX: U07.1 COVID-19 (principal); M54.50 Low back pain, unspecified; I45.10 Unspecified right bundle-branch block; I25.10 Atherosclerotic heart disease of native coronary artery without angina pectoris; E78.5 Hyperlipidemia, unspecified; Z95.5 Presence of coronary angioplasty implant and graft; Z79.01 Long term (current) use of anticoagulants; Z87.891 Personal history of nicotine dependence
CPT/HCPCS: 71275; 73562; 80048; 82805; 87040; 87637; 87798; 93005; 96365; 96366; 96367; 99285; 70450; 71045; 72128; 72131; 81003; 81015; 83605; 84484; 85025; 85379; 86618; 93010; 99284; J1100; J3490

== ENCOUNTER → 2023-05-22 07:56 | Outpatient (BNVA) | payer MEDICARE, BC, SELFPAY | PROVIDERS: PCP Internal Medicine Geriatric Medicine; Referring Provider Internal Medicine Geriatric Medicine; Visit Provider Urology | DX: N53.19 Other ejaculatory dysfunction (principal); N40.1 Benign prostatic hyperplasia with lower urinary tract symptoms; N13.8 Other obstructive and reflux uropathy | CPT/HCPCS: 99213 ==

== ENCOUNTER 2023-05-30 18:20 | Emergency (ER) | payer OTHER, MEDICARE, BC, SELFPAY ==
[2023-05-30] VITALS (32 sets, daily range): BP systolic 138–148; BP diastolic 76–97; PULSE 76–114; RESP 11–28; TEMP 36.5; O2SAT 94–100
--- NOTE | 2023-05-30 18:15 | RT.EKG_ITS ---
APPROVED REPORT Exam: Resting ECG Reason for Exam: chest pain Patient Location: E HR:79 bpm ECG Measurements Heart Rate 79 AXIS ME 190 P 23 QRSd 123 QRS -32 QT 359 T -14 QTc 413 Conclusion Sinus rhythm...normal P axis, V-rate 60- 99 IVCD, consider RBBB...QRSd>120mS, terminal axis(90,270) Normal sinus rhythm at a rate of 79. Right bundle branch block with left axis deviation?bifasci cular block. Mild ST segment elevation in lead III submillimeter. Mild change in morphology and ST segment in V2 compared to prior. Prior dated earlier this summer. No acute injury pattern.
--- NOTE | 2023-05-30 18:22 | W.ED.GENAD ---
Discharge Plan Discharge Details Chief Complaint: Chest Pain Primary Care Provider: Abdulaziz Melchor ED Provider: Dank Mcqueen Home Meds and New Rx's Prescriptions: No Action tamsulosin 0.4 mg capsule 0.4 mg PO DAILY Rx Instructions: decreasing dose from 0.8 to 0.4 mg hydrocortisone-pramoxine 2.5-1 % (4g) cream 1 applic MO QID PRN Qty: 4 2RF Eliquis 5 mg tablet 5 mg PO BID simvastatin 20 MG tablet 20 mg PO DAILY nitroglycerin [Nitrostat] 0.4 MG tablet, sublingual 0.4 mg PO PRN PRN albuterol sulfate 8.5 GM HFA aerosol inhaler 2 puff Inhalation PRN PRN omeprazole 20 MG tablet,delayed release (DR/EC) 20 mg PO PRN PRN sildenafil [Viagra] 100 MG tablet 50 mg PO PRN PRN oxybutynin chloride 5 mg tablet extended release 24hr 5 mg PO DAILY PRN acetaminophen 500 mg Tablet 500 mg PO BID doxycycline hyclate 100 mg tablet 100 mg PO BID Qty: 20 0RF budesonide-formoterol [Symbicort] 160-4.5 mcg/actuation HFA aerosol inhaler 2 puff inhalation BID Qty: 10.2 0RF cholecalciferol (vitamin D3) [Vitamin D3] 2,000 UNIT capsule 2,000 unit PO DAILY vit [id number] 100 unit- 12.5 mg Capsule 1 cap PO DAILY Rx Instructions: 02/02/19 vit E two tabs unknown brand Medical Decision Making This is an overall well-appearing normothermic and not tachycardic 77-year-old male with atherosclerotic coronary artery disease and chest discomfort concerning for the possibility of ACS. Patient's ECG is nonischemic and he does not have radiating pain nor any diaphoresis associated with this pain which he feels is most consistent with congestion. Nonetheless based on risk factors will obtain 2 sets of troponins and treat patient with 324 mg of aspirin. No positional component to suggest pericarditis. PE is also certainly a possibility however the patient is anticoagulated on apixaban. Nonetheless he is low risk for PE but not PERC negative so we will obtain a D-dimer. No pain out of proportion to suggest necrotizing soft tissue infection. No tearing quality to suggest aortic dissection. No history of recent emesis to suggest increased risk for esophageal rupture. Equal breath sounds and no history of trauma so my suspicion for pneumothorax is exceedingly low. No rash to chest to suggest zoster. Patient is not hypotensive nor is he a dialysis patient so my suspicion is exceedingly low for tamponade. No significant fevers hypoxia nor cough so doubt pneumonia. No crepitance to suggest pneumomediastinum. Patient has no lower extremity swelling and no significant shortness of breath so doubt acute CHF. Patient does have a history of obstructive sleep apnea and it is certainly possible that he has developed a component of pulmonary hypertension. He also has a history of inhalers so it is certainly possible that he could be early on in having an exacerbation of his reactive airway disease however he has no prolonged expiratory phase nor any increased purulence to his sputum so I do not feel that he would be well served by steroids nor doxycycline. 7:11 PM CBC showing mild leukopenia. No anemia. No thrombocytopenia. 7:33 PM Reassuring negative troponin. Basic metabolic panel with no CHAYA. Mild increased BUN. Mild hyperglycemia. No anion gap. Normal bicarbonate. Not consistent with DKA. Markedly elevated D-dimer for which patient will undergo CT angiogram of his chest to assess for PE. I canceled the patient's chest x-ray as I was ordering a CT scan. Chronic conditions affecting the care of the patient: Atherosclerotic coronary artery disease History obtained from an outside historian: N/A [place] [facility] [place] Diagnostic interpretations performed by me: Per my independent interpretation EKG shows: Normal sinus rhythm at a rate of 79. Right bundle branch block with left axis deviation??bifascicular block. Mild ST segment elevation in lead III submillimeter. Mild change in morphology and ST segment in V2 compared to prior. Prior dated earlier this summer. No acute injury pattern. Medications: Aspirin Social determinants of health affecting disposition: N/A Management discussed with: Dr. Goyal Treatment/interventions considered: N/A Response to therapies provided: Aspirin HPI General Date/Time Provider Initiated Documentation: 05/30/23 18:22. HPI Narrative: This is a 77-year-old male with history of atherosclerotic coronary artery disease and COVID infection last month arriving to the emergency department via private vehicle in the setting of chest congestion. Patient intermittently notes that for the past 4 days he has had a discomfort in his chest that he feels as a tightness. He had COVID and received outpatient Paxlovid. His daughter from [place] is reportedly concerned with the possibility of a blood clot in his lungs. He has had no calf pain. He said no lower extremity swelling. He has no radiation of his chest discomfort. His discomfort is not positional nor pleuritic. He has never had a PE nor DVT. He denies any fevers. He has not been nauseous nor vomiting. He has not had any recent trauma to his chest. He endorses some chills. Related Data Home Medications Medication Instructions Recorded Confirmed albuterol sulfate 90 mcg/actuation 2 puff inhalation PRN PRN 09/28/13 05/22/23 aerosol inhaler nitroglycerin 0.4 mg sublingual 0.4 mg PO PRN PRN 09/28/13 05/22/23 tablet (Nitrostat) omeprazole 20 mg tablet,delayed 20 mg PO PRN PRN 09/28/13 05/22/23 release simvastatin 20 mg tablet 20 mg PO DAILY 09/28/13 05/22/23 sildenafil 100 mg tablet (Viagra) 50 mg PO PRN PRN 10/22/15 05/22/23 cholecalciferol (vitamin D3) 50 2,000 unit PO DAILY 06/28/17 05/22/23 mcg (2,000 unit) capsule (Vitamin D3) vit E 100 unit-zinc 12.5 1 cap PO DAILY 02/02/19 05/22/23 [id number]-muzdunnn-bilberry-herb #261 capsule hydrocortisone-pramoxine 2.5 %-1 % 1 applic MO QID PRN rectal pain #4 09/23/19 05/22/23 (4g) rectal cream grams apixaban 5 mg tablet (Eliquis) 5 mg PO BID 05/29/20 05/22/23 acetaminophen 500 mg tablet 500 mg PO BID 10/02/21 05/22/23 oxybutynin chloride 5 mg 5 mg PO DAILY PRN 10/02/21 05/22/23 tablet,extended release 24 hr budesonide-formoterol HFA 160 2 puff inhalation BID #10.2 grams 05/03/23 05/22/23 mcg-4.5 mcg/actuation aerosol inhaler (Symbicort) doxycycline hyclate 100 mg tablet 100 mg PO BID #20 tabs 05/03/23 05/22/23 tamsulosin 0.4 mg capsule 0.4 mg PO DAILY 05/22/23 05/22/23 Previous Rx's Medication Instructions Recorded hydrocortisone-pramoxine 2.5 %-1 % 1 applic MO QID PRN rectal pain #4 09/23/19 (4g) rectal cream grams budesonide-formoterol HFA 160 2 puff inhalation BID #10.2 grams 05/03/23 mcg-4.5 mcg/actuation aerosol inhaler (Symbicort) doxycycline hyclate 100 mg tablet 100 mg PO BID #20 tabs 05/03/23 Allergies Allergy/AdvReac Type Severity Reaction Status Date / Time celecoxib [From Celebrex] AdvReac Severe Severe rash Unverified 05/22/23 07:56 ibuprofen [From Advil] AdvReac Intermediate upset Unverified 05/22/23 07:56 stomach General EVELYNE: 2 PFSH All Active Problems Hx of falling (Acute) Shortness of breath (Acute) Acute low back pain (Acute) COVID-19 (Acute) Anejaculation (Acute) BPH w urinary obs/LUTS (Acute) Chest pain (Acute) Palpitation (Acute) Kidney stones (Chronic) Urgency incontinence (Acute 09/08/16) Frequency of urination (Acute 09/08/16) Incarcerated ventral hernia (Acute 10/11/14) Atrial fibrillation (Chronic) CAD (coronary artery disease) (Chronic) a. s/p stenting Obstructive sleep apnea (Chronic) Hyperlipidemia (Chronic) H/O surgical procedure (Chronic) a. coronary stenting b. open cholecystectomy c. ERCP Medical History Atrial fibrillation CAD (coronary artery disease), [place] coronary artery status post stenting GERD (gastroesophageal reflux disease) Hyperlipidemia DIXIE (obstructive sleep apnea) Surgical History Cholecystectomy open Coronary Stent ERCP Hernia Repair, Incisional Laparoscopic Social History Smoking/Tobacco Use Status: Former Tobacco Use Quit Date: 10/05/1967 Smoking risk assessment performed?: Yes Alcohol Intake: former Drug use: Never Substance use type: does not use Housing: house Do you feel safe at home: Yes Do you feel safe in your relationship?: Yes Exam Narrative Exam Narrative: General: Well-appearing in no acute distress speaking in complete sentences. Head: Normocephalic, atraumatic. Eye: Extraocular eye movements intact. No conjunctival injection. No scleral icterus. Ear, nose, mouth, throat: Grossly normal inspection. Normal voice, handling secretions normally. Neck: Trachea midline. Cardiovascular: Well-perfused distal extremities. Regular rate and rhythm. Respiratory: Nonlabored respiration. Clear lungs bilaterally. No prolonged expiratory phase. No accessory muscle use. No stridor. Gastrointestinal: Nondistended abdomen. Soft nontender abdomen. Clear lungs bilaterally. Musculoskeletal: No significant lower extremity pitting edema. Moving all 4 extremities spontaneously. No calf tenderness bilaterally. Skin: Normal for age and race, grossly normal temperature and turgor. No acute rash. Neurologic: Alert and appropriate, no apparent acute deficits. Psychiatric: Mood and manner are appropriate. Grooming and personal hygiene are appropriate.
[2023-05-30 18:56] LABS: Abs Immature Grans 0.01 10^3/uL (0.0-0.06); Absolute Basophil Count 0.02 10^3/uL (0.0-0.2); Absolute Eosinophil Count 0.05 10^3/uL (0.0-0.7); Absolute Lymphocyte Count 1.08 10^3/uL (1.2-3.4); Absolute Monocyte Count 0.53 10^3/uL (0.1-0.8); Basophils % 0.6; Eosinophils % 1.4; HCT 40.6 % (40.0-50.0); HGB 14.3 g/dL (13.5-17.5); Immature Grans % 0.3; Lymphocytes % 30.1; MCH 31.4 pg (27.0-33.0); MCHC 35.2 % (32.0-36.0); MCV 89 fL (80-95); MPV 9.3 fL (8.0-11.0); Monocytes % 14.8; Neutrophils % 52.8; Platelet Count 150 10^3/uL (130-400); RBC 4.55 10^6/uL (4.36-5.78); RDW 12.5 % (11.8-14.1); WBC 3.59 10^3/uL (4.4-10.8)
[2023-05-30 19:13] LABS: Anion Gap 7.2 mmol/L (3-11); BUN 21 mg/dL (7-18); CO2 28.8 mmol/L (21.0-32.0); CREATININE 1.2 mg/dL (0.70-1.30); Chloride 101 mmol/L (98-107); Estimated GFR 62.67 (mL/min/1.73m2); Glucose 143 mg/dL (74-106); Potassium 4.1 mmol/L (3.5-5.1); Sodium 137 mmol/L (136-145); Troponin I < 50 ng/L (<or=60)
[2023-05-30 19:30] LABS: D-Dimer 1345 ng/mlFEU (<500)
--- NOTE | 2023-05-30 19:30 | DI.CT_ITS ---
Exam(s) CT CHEST PE CTA EXAM: CT CHEST PE CTA CLINICAL HISTORY: Chest pain positive D-dimer. TECHNIQUE: Imaging Protocol: Axial CT angiography was performed with multi-slice acquisition and mu lti-planar and/or 3D reconstructions. CONTRAST MATERIAL: Intravenous: Omnipaque 350 contrast volume:100 mL COMPARISON: CT CT CHEST PE CTA from 05/03/2023 CR,XR XR CHEST 2V PA LATERAL from 05/30/2023 FINDINGS: Tracheobronchial tree: Patent where visualized. Pulmonary parenchyma: Atelectasis is seen in the lung bases bilaterally. No architectural distortion . Pulmonary Arteries: No evidence of filling defect to suggest pulmonary emboli. Mediastinum and Rosie: No dominant adenopathy or fluid collection. The esophagus is unremarkable. Visualized thyroid gland: Unremarkable. Pleura: No effusion or pneumothorax. Heart: The heart is not dilated. Mild coronary artery calcification is present. No pericardial effus ion. Aorta: Thoracic aorta non-dilated. Atherosclerosis is present. Due to timing of this bolus administr ation, the aorta cannot be assessed for dissection. Upper abdomen: Pneumobilia is present. Bilateral nephrolithiasis. No hydronephrosis. Soft tissues: Unremarkable. Bones: Within normal limits for the patient's age.Stable chronic compression deformities in the thora cic spine. IMPRESSION: No evidence of pulmonary embolism, or aneurysm. RADIATION DOSE DELIVERED: 427.23mGy.cm Total DLP DATA REPOSITORY: All CT scans at this facility are submitted to the National Radiology Data Registry (NRDR) Dose Index Registry (DIR) with the [employer] (ACR). RADIATION OPTIMIZATION: All CT scans at this facility use at least one of these dose optimization te chniques: automated exposure control; mA and/or kV adjustment per patient size (includes targeted exa ms where dose is matched to clinical indication); or iterative reconstruction.
--- NOTE | 2023-05-30 19:41 | DI.RAD_ITS ---
Exam(s) XR CHEST 2V PA LATERAL EXAM: XR CHEST 2V PA LATERAL CLINICAL HISTORY: Chest pain TECHNIQUE: 2D digital imaging was performed of the chest. Two images were obtained. PA and lateral views were obtained. COMPARISON: CR XR CHEST 2V PA LATERAL from 11/25/2022 CR,XR XR PORTABLE CHEST AP from 05/03/2023 FINDINGS: MEDIASTINUM: Normal. HEART: Normal. PULMONARY VASCULATURE: Normal. LUNGS: Clear. PLEURAL SPACE: No pleural effusion or pneumothorax. BONE:Within normal limits for the patient's age. There is a stable mild compression deformity of T9. OTHER FINDINGS:Normal. IMPRESSION: No acute pulmonary findings. DATA REPOSITORY: RADIATION DOSE DELIVERED:
--- NOTE | 2023-05-30 19:49 | DI.VRAD_ITS ---
PROCEDURE INFORMATION: Exam: XR Chest Exam date and time: 05/30/2023 7:34 PM Age: 77 years old Clinical indication: Chest wall pain; Patient HX: Chest pain TECHNIQUE: Imaging protocol: Radiologic exam of the chest. Views: 2 views. COMPARISON: CR XR PORTABLE CHEST AP 05/03/2023 5:40 PM FINDINGS: Lungs: No consolidation. Pleural spaces: No pleural effusion. No pneumothorax. Heart/Mediastinum: No cardiomegaly. Bones/joints: No acute fracture. IMPRESSION: No acute cardiopulmonary pathology. Dictated and Authenticated by: Merary Robin MD. Ordering:SUJATA Weems MD
[2023-05-30] MEDS: Omnipaque 350 MG/ML 100 ML BTL IJ (20:25)
[2023-05-30] MEDS: Normal Saline - Diluent 50 ML VIAL IV (20:25)
--- NOTE | 2023-05-30 20:28 | DI.VRAD_ITS ---
PROCEDURE INFORMATION: Exam: CTA Chest With Contrast Exam date and time: 05/30/2023 8:07 PM Age: 77 years old Clinical indication: Other: Positive d-dimer TECHNIQUE: Imaging protocol: Computed tomographic angiography of the chest with contrast. Exam focused on the arteries. 3D rendering (Not supervised by radiologist): MIP and/or 3D reconstructed images were created by the technologist. Contrast material: OMNIPAQUE 350; Contrast volume: 100 ml; Contrast route: INTRAVENOUS (IV); COMPARISON: CT CHEST PE CTA 05/03/2023 8:09 PM FINDINGS: Pulmonary arteries: No pulmonary emboli. Aorta: No aortic aneurysm. Study not timed to optimally assess the aorta for dissection. Lungs: Scattered microatelectasis. No airspace consolidation. Pleural spaces: No pneumothorax. No pleural effusion. Heart: Mild cardiomegaly. Lymph nodes: No enlarged lymph nodes. Gallbladder and bile ducts: Pneumobilia is most consistent with a sphincterotomy. Kidneys and ureters: Left nephrolithiasis nonobstructive as visualized. Bones/joints: Chronic loss of height in the thoracic spine. No acute fracture or subluxation. Soft tissues: No suspicious lesions. IMPRESSION: 1. No pulmonary emboli are seen. 2. Incidental findings as described. Dictated and Authenticated by: Merary Robin MD. Ordering:SUJATA Weems MD
--- NOTE | 2023-05-30 21:06 | ED.PROG_ITS ---
Date of service: 05/30/23 Time of Service: 21:06 Medical Decision Making Patient is signed out to me by my colleague Dr. Mcqueen. Please refer to his HPI, physical exam, assessment and plan. Patient had COVID about a month ago, since then he has been having continued and worsening shortness of breath and intermittent chest pain. Initial work-up was negative, we are pending CTA and repeat troponin. Initial troponin normal, EKG stable. Repeat troponin normal. CTA negative for acute process, PE or other significant abnormality. Symptoms inconsistent with ACS, STEMI, dissection or PE. Differential includes long COVID or pulmonary decompensation secondary to previous sickness. We will place outpatient referral for pulmonary function testing and pulmonology referral. Discussed red flags for which to return. I have extensively reviewed the treatment plan and discharge instructions with the patient and their family. I have addressed all patient concerns at this time. The patient and family was made aware of what symptoms to monitor for that would warrant a return to the emergency department. Discussed the plan with the patient and family, they demonstrate verbal understanding and agreement with our assessment and plan at this time. The documentation in this chart was dictated using [employer] dictation software. Please excuse any dictation errors. FINDINGS: Pulmonary arteries: No pulmonary emboli. Aorta: No aortic aneurysm. Study not timed to optimally assess the aorta for dissection. Lungs: Scattered microatelectasis. No airspace consolidation. Pleural spaces: No pneumothorax. No pleural effusion. Heart: Mild cardiomegaly. Lymph nodes: No enlarged lymph nodes. Gallbladder and bile ducts: Pneumobilia is most consistent with a sphincterotomy. Kidneys and ureters: Left nephrolithiasis nonobstructive as visualized. Bones/joints: Chronic loss of height in the thoracic spine. No acute fracture or subluxation. Soft tissues: No suspicious lesions. IMPRESSION: 1. No pulmonary emboli are seen. 2. Incidental findings as described. Thank you for allowing us to participate in the care of your patient. Dictated and Authenticated by: Merary Robin MD 05/30/2023 8:27 PM Eastern Time ([place] & [place]) Sign Out Sign Out Data: Sign Out Comment: Please follow-up CTA to assess for PE and repeat troponin. Last updated by Dank Mcqueen MD at 05/30/23 19:37 Discharge Plan Disposition Patient Disposition: Home Condition: Good Discharge Details Chief Complaint: Chest Pain Clinical Impression: Breathlessness, Chest pain Primary Care Provider: Abdulaziz Melchor ED Provider: Berlin Goyal Home Meds and New Rx's Prescriptions: No Action tamsulosin 0.4 mg capsule 0.4 mg PO DAILY Rx Instructions: decreasing dose from 0.8 to 0.4 mg hydrocortisone-pramoxine 2.5-1 % (4g) cream 1 applic [place] QID PRN Qty: 4 2RF Eliquis 5 mg tablet 5 mg PO BID simvastatin 20 MG tablet 20 mg PO DAILY nitroglycerin [Nitrostat] 0.4 MG tablet, sublingual 0.4 mg PO PRN PRN albuterol sulfate 8.5 GM HFA aerosol inhaler 2 puff Inhalation PRN PRN omeprazole 20 MG tablet,delayed release (DR/EC) 20 mg PO PRN PRN sildenafil [Viagra] 100 MG tablet 50 mg PO PRN PRN oxybutynin chloride 5 mg tablet extended release 24hr 5 mg PO DAILY PRN acetaminophen 500 mg Tablet 500 mg PO BID doxycycline hyclate 100 mg tablet 100 mg PO BID Qty: 20 0RF budesonide-formoterol [Symbicort] 160-4.5 mcg/actuation HFA aerosol inhaler 2 puff inhalation BID Qty: 10.2 0RF cholecalciferol (vitamin D3) [Vitamin D3] 2,000 UNIT capsule 2,000 unit PO DAILY vit [id number] 100 unit- 12.5 mg Capsule 1 cap PO DAILY Rx Instructions: 02/02/19 vit E two tabs unknown brand Discharge Instructions Instructions: Chest Pain (ED), Dyspnea (ED) Additional Instructions: At this time your work-up shows no elevation of your heart markers, your CAT scan shows no significant new abnormalities. Please follow-up closely on an outpatient basis for your scheduled echo. We will place a referral with pulmonology for pulmonary function testing. If you notice any worsening of your symptoms, or any new symptoms such as vomiting, diarrhea, fever, chills, shortness of breath, chest pain, numbness, weakness, or fainting , please return immediately to the emergency department for reevaluation. Please follow up with your primary care provider as soon as possible for reassessment and reevaluation. As always, it was a pleasure participating in your medical care today. Referrals: Cheyenne Mcintyre MD [ [facility]] - Abdulaziz Melchor [Primary Care Provider] -
[2023-05-30 22:28] LABS: Troponin I < 50 ng/L (<or=60)
--- NOTE | 2023-05-31 01:37 | NUR.NOTE ---
Referral faxed to [facility] Pulmonology for f/u as soon as he can get in for Dyspnea/long covid.Nursing Note:
== END 2023-05-30 23:32 | disposition home or self-care (01) ==
PROVIDERS: Emergency Medicine; Emergency Provider Student in an Organized Health Care Education/Training Program; PCP Internal Medicine Geriatric Medicine
DX: R06.81 Apnea, not elsewhere classified (principal); R07.9 Chest pain, unspecified
CPT/HCPCS: 36415; 71275; 80048; 93005; 99285; 71046; 84484; 85025; 85379; 93010; 99284; J3490

== ENCOUNTER 2023-06-26 22:01 | Outpatient (REF) | payer MEDICARE, BC, SELFPAY | END 2023-06-26 22:02 | disposition home or self-care (01) | LOC: LBN 22:01 | PROVIDERS: PCP Internal Medicine Geriatric Medicine; Visit Provider Student in an Organized Health Care Education/Training Program | DX: U09.9 Post COVID-19 condition, unspecified (principal) | CPT/HCPCS: 82533 ==

== ENCOUNTER 2023-07-20 04:53 | Outpatient (CLI) | payer MEDICARE, BC, SELFPAY ==
[2023-07-20] MEDS: Levalbuterol HFA 15 GM INH 4 PUFF IH (16:44)
[2023-07-20] MEDS: Inhaler, Assist Device 1 EACH MC (16:44)
--- NOTE | 2023-07-21 10:21 | PFT_ITS ---
Date of service: 07/20/23 Time of Service: 15:00 Pulmonary Function Test Result Indications: [facility] Interpretation Spirometry: There is no airflow limitation. Methacholind challenge aborted due to dyspnea with normal saline neb. Lung Volumes: Normal lung volumes Diffusion Capacity: Normal diffusion Airway Pressure: Normal airways resistance Impression Normal pulmonary function testing. Methacholine challenge aborted due to patient symptoms. Clinical Correlation therefore is recommended.
== END 2023-07-20 04:54 | disposition home or self-care (01) ==
LOC: RT 04:54
PROVIDERS: PCP Internal Medicine Geriatric Medicine; Visit Provider Student in an Organized Health Care Education/Training Program
DX: U09.9 Post COVID-19 condition, unspecified (principal)
CPT/HCPCS: 94060; 94726; 94729

== ENCOUNTER 2023-08-24 07:54 | Outpatient (CLI) | payer MEDICARE, BC, SELFPAY | END 2023-08-24 07:55 | disposition home or self-care (01) | LOC: ORDER INT 12:40 | PROVIDERS: PCP Internal Medicine Geriatric Medicine; Referring Provider Internal Medicine Geriatric Medicine; Visit Provider Urology | DX: N20.0 Calculus of kidney (principal) | CPT/HCPCS: 76775 ==

== ENCOUNTER → 2023-08-24 15:28 | Outpatient (BNVA) | payer MEDICARE, BC, SELFPAY | PROVIDERS: PCP Internal Medicine Geriatric Medicine; Referring Provider Internal Medicine Geriatric Medicine; Visit Provider Student in an Organized Health Care Education/Training Program | DX: J45.998 Other asthma (principal); U09.9 Post COVID-19 condition, unspecified; Z79.899 Other long term (current) drug therapy; Z87.891 Personal history of nicotine dependence | CPT/HCPCS: 76775; 99214 ==

== ENCOUNTER 2023-09-21 09:16 | Emergency (ER) | payer MEDICARE, BC, SELFPAY ==
[2023-09-21] VITALS (32 sets, daily range): BP systolic 141–182; BP diastolic 61–142; PULSE 51–66; RESP 10–24; TEMP 36.2; O2SAT 92–100
--- NOTE | 2023-09-21 09:15 | RT.EKG_ITS ---
APPROVED REPORT Exam: Resting ECG Reason for Exam: afib, heart issues Patient Location: E HR:59 bpm ECG Measurements Heart Rate 59 AXIS SD 223 P 10 QRSd 134 QRS -36 QT 426 T 0 QTc 417 Conclusion Sinus bradycardia...rate< 60 Atrial premature complex...SV complex w/ short R-R interval Prolonged SD interval...SD >220, V-rate 50- 90 Right bundle branch block...QRSd>120, terminal axis(90,270)
--- NOTE | 2023-09-21 09:41 | W.ED.GENAD ---
Discharge Plan Disposition Patient Disposition: Home Condition: Stable Discharge Details Clinical Impression: Chest pain of uncertain etiology Primary Care Provider: Abdulaziz Melchor ED Provider: [place] Maldonado Home Meds and New Rx's Prescriptions: Continued tamsulosin 0.4 mg capsule 0.4 mg PO DAILY Rx Instructions: decreasing dose from 0.8 to 0.4 mg rosuvastatin See Rx Instructions .ROUTE DIRECTED Rx Instructions: as directed; budesonide-formoterol [Symbicort] 80-4.5 mcg/actuation HFA aerosol inhaler 2 puff inhalation BID Qty: 10.2 12RF albuterol sulfate 90 mcg/actuation HFA aerosol inhaler 2 puff Inhalation PRN PRN (Reason: shortness of breath or wheezing) Qty: 8.5 12RF hydrocortisone-pramoxine 2.5-1 % (4g) cream 1 applic IA QID PRN Qty: 4 2RF Eliquis 5 mg tablet 5 mg PO BID oxybutynin chloride 10 mg tablet extended release 24hr 10 mg PO DAILY Qty: 90 4RF nitroglycerin [Nitrostat] 0.4 MG tablet, sublingual 0.4 mg PO PRN PRN omeprazole 20 MG tablet,delayed release (DR/EC) 20 mg PO PRN PRN sildenafil [Viagra] 100 MG tablet 50 mg PO PRN PRN acetaminophen 500 mg Tablet 500 mg PO BID cholecalciferol (vitamin D3) [Vitamin D3] 2,000 UNIT capsule 2,000 unit PO DAILY Discharge Instructions Instructions: Chest Pain (ED) Additional Instructions: You were seen in the emergency department for your chest pain throughout the night last night that responded well to 1 dose of nitro. Multiple troponin laboratory studies were done today that showed no signs of heart attack, CT scan shows only fat-containing hernia that is likely chronic in nature, your chest x-ray is within normal limits. You are anticoagulated and I do not think that this is related to any kind of blood clot in the lungs. Please follow-up diligently with your primary care provider for updated studies and possibly a visit with your customer sales service manager. Please return to the emergency department for any increasing chest pain especially with worrying symptoms like sweating, shortness of breath, dizziness, near fainting. Referrals: Abdulaziz Melchor [Primary Care Provider] - Discharge Data Discharge Date/Time-TO BE ENTERED AT DEPARTURE: 09/21/23 13:49 Medical Decision Making This dictation utilizes [id number] dictation software and may contain unedited grammatical errors. 77 y/o M presents to ED today with a chief complaint of chest pain starting in the middle of the night last night, resolved now, responded to 1 dose SL nitro, also has mild abdominal pain LLQ- did have a big holiday meal last night. Onset and characteristics include CP started middle of the night last night, took 1 nitro and had significant resolution by 0800, felt palpitations during this time, mild feelings of weakness- patient also endorses having a lot of gas pains, belching and passing flatus throughout the night. Patients' medical history: paroxysmal atrial fibrillation on Eliquis, CAD, hyperlipidemia, DIXIE, GERD. Family and social history: noncontributory. Pertinent exam findings / vital signs include NSR, benign cardiac exam, benign pulmonary exam- no respiratory distress, LLQ abdominal tenderness, nontoxic vitals, no tachycardia. Differential / pathologies of concern include NSTEMI, GERD, gas pains, CHF, Atrial Fibrillation, Costochondritis, PNA, diverticulitis, partial SBO, Colitis, Sepsis- unlikley PE patient anticoagulated Diagnostic studies of: -CBC, CMP, Trop I (+3hr trop), BNP, Lipase, CRP/ESR, EKG, CXR, CT ABD/Pelvis w Contrast. -CBC no leukocytosis -CMP benign -trop's negative -EKG shows sinus bradycardia, no new dynamic changes -CXR no focal PNA -CT shows no acute pathology, fat containing hernia, no diverticulitis -inflammatory markers negative Interventions of: -500mL bolus IVF. ED Course/Assessment/Plan: 77-year-old male presents with chest pain starting in the middle of the night last night has known history of A-fib that is paroxysmal, his pain resolved with 1 dose nitro around 8 AM, presents with his daughter for evaluation, EKG shows normal sinus rhythm, multiple troponins are negative, patient is lactate is within normal limits do not suspect acute infectious etiology, inflammatory markers are negative, do not suspect colitis, BMP negative, lipase negative, patient has history of cholecystectomy, I discussed possible angina with the patient and the need to follow-up versus ops admit which is sometimes warranted and moderate heart score risk, the patient acknowledged this risk and he will follow-up with his customer sales service manager and primary care provider, he did not want to be observed on telemetry overnight and I think this is reasonable given his stable status throughout the visit and his ability to return urgently for any return of chest pain. Possible his chest pain was due to the excessive gassiness he has been feeling since his large meal last night. Findings not consistent with CAD, delta trop negative, not consistent with atrial fibrillation - EKG shows NSR, not consistent with PNA- CXR clear, not consistent with infectious or obstructive abdominal pathology- CT ABD/Pelvis w Contrast negative for acute emergent pathology. Disposition of Chest Pain of Uncertain Etiology. Patient verbalized understanding of the plan and return to ED criteria and engaged in shared decision making. Medical Records Medical records reviewed: Yes I reviewed the patient's medical records. Imaging Data Radiologic Study: Imaging: X-Ray Radiologist's impression: EXAM: XR CHEST 1V IN DI DEPT CLINICAL HISTORY: chest pain TECHNIQUE: 2D digital imaging was performed of the chest. One image was obtained. An AP view was obtained. COMPARISON: CR,XR XR CHEST 2V PA LATERAL from 05/30/2023 FINDINGS: MEDIASTINUM: Normal. HEART: Normal. PULMONARY VASCULATURE: Normal. LUNGS: Clear. PLEURAL SPACE: No pleural effusion or pneumothorax. BONE:Within normal limits for the patient's age. OTHER FINDINGS:Normal. IMPRESSION: No acute pulmonary findings. Radiologic Study #2: Imaging: CT Scan Radiologist's impression: EXAM: CT ABDOMEN PELVIS W CLINICAL HISTORY: LLQ tenderness TECHNIQUE: Imaging Protocol: Axial computed tomography images with coronal and sagittal reformatted images were created and reviewed CONTRAST MATERIAL: Intravenous: Omnipaque 350 Contrast volume:100 mL Oral: No COMPARISON: CT CT ABDOMEN PELVIS W from 06/08/[address] CHEST PE CTA from 05/30/2023 FINDINGS: ABDOMEN: Lung Bases: Coronary artery calcifications and/or stents are present. Pulmonary fibrosis is seen in the lung bases. Liver: Normal density. No measurable mass. Portal, Superior Mesenteric, and Splenic Veins: Unremarkable. Gallbladder and Biliary Tract: The gallbladder is absent. No significant biliary ductal dilatation is present. Pancreas: There is fatty atrophy of the pancreas. Spleen: Normal. Adrenals: No masses seen. Kidneys: Normal size, contour and axis. Bilateral nephrolithiasis. No obstructive uropathy. Left renal cyst is stable. No follow-up is recommended. Abdominal Aorta: Abdominal portion non-dilated. Atherosclerosis. Bowel: There is diverticulosis of the colon there is no evidence of acute diverticulitis. The stomach is incompletely distended limiting evaluation. No evidence of bowel wall thickening or obstruction. No evidence of appendicitis. Peritoneal Cavity: No ascites, collection or mesenteric inflammatory response. No free air. Lymph Nodes: Within normal limits. Bones: Within normal limits for the patient's age. Soft Tissues: There are small anterior abdominal wall defects consistent with tiny fat containing abdominal wall hernias. There is a small fat containing umbilical hernia. There is a fat containing left inguinal hernia. PELVIS: Bladder: Symmetric distention, no gross wall thickening. Reproductive Organs: Prostate gland is enlarged. Lymph Nodes: Within normal limits. Bones: Within normal limits for the patient's age. IMPRESSION: 1. No acute abdominal or pelvic process. 2. Colonic diverticulosis without evidence of acute diverticulitis. 3. Small fat containing left inguinal hernia. 4. Bilateral nephrolithiasis. No obstructive uropathy. 5. Enlarged prostate gland. Lab Data Lab results reviewed: Yes I reviewed the patient's lab results. Labs: Laboratory Tests Range/Units 09/21/23 09/21/23 09:40 12:45 WBC (4.4-10.8) 10^3/uL 6.14 RBC (4.36-5.78) 10^6/uL 4.67 Hgb (13.5-17.5) g/dL 14.6 Hct (40.0-50.0) % 41.8 MCV (80-95) fL 90 MCH (27.0-33.0) pg 31.3 MCHC (32.0-36.0) % 34.9 RDW (11.8-14.1) % 12.1 Plt Count (130-400) 10^3/uL 172 MPV (8.0-11.0) fL 9.5 Immature Gran % 0.3 Neutrophils % 58.3 Lymphocytes % 25.4 Monocytes % 11.1 Eosinophils % 4.2 Basophils % 0.7 Nucleated RBC % (0.0-0.3) % 0.0 Absolute Neutrophils (1.2-6.7) 10^3/uL 3.58 Absolute Lymphocytes (1.2-3.4) 10^3/uL 1.56 Absolute Monocytes (0.1-0.8) 10^3/uL 0.68 Absolute Eosinophils (0.0-0.7) 10^3/uL 0.26 Absolute Basophils (0.0-0.2) 10^3/uL 0.04 ESR (0-20) mm/hr 1 VBG Lactate (0.6-1.4) mmol/L 1.2 Sodium (136-145) mmol/L 142 Potassium (3.5-5.1) mmol/L 4.4 Chloride (98-107) mmol/L 107 Carbon Dioxide (21.0-32.0) mmol/L 28.9 Anion Gap (3-11) mmol/L 6.1 BUN (7-18) mg/dL 19 H Creatinine (0.70-1.30) mg/dL 1.1 Est GFR (CKD-EPI 2020) (mL/min/1.73m2) 69.57 Glucose (74-106) mg/dL 121 H Calcium (8.5-10.1) mg/dL 8.9 Magnesium (1.8-2.4) mg/dL 1.9 Total Bilirubin (0.2-1.0) mg/dL 0.6 AST (15-37) U/L 17 ALT (16-63) U/L 31 Alkaline Phosphatase (46-116) U/L 153 H Troponin I (<or=60) ng/L < 50 < 50 C-Reactive Protein (0.0-0.3) mg/dL 0.26 NT-Pro-B Natriuret Pep (<300) pg/mL 91 Total Protein (6.4-8.2) g/dL 6.3 L Albumin (3.4-5.0) g/dL 3.4 Lipase (16-77) U/L 29 HPI General Date/Time Provider Initiated Documentation: 09/21/23 09:27. HPI Narrative: 77 year-old male presents to ED today by POV/ambulating with his daughter with a chief complaint of chest pain with onset in the middle of the night last night, excessive gassiness after a large holiday meal, resolution of pain this morning around 0800 with 1 nitro- has history of CAD, notes some mild LLQ tenderness in abdomen. Quality described as chest tightness, excessive belching, passing flatus, mild abdominal pain, no radiation to fever, severe abdominal pain, syncope, visual changes, diaphoresis. Severity is described as was 7/10. Palliating factors include nitro with relief. Provoking factors include nothing specific, at rest at onset. 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 Patient not anticoagulated. Related Data Home Medications Medication Instructions Recorded Confirmed nitroglycerin 0.4 mg sublingual 0.4 mg PO PRN PRN 09/28/13 09/21/23 tablet (Nitrostat) omeprazole 20 mg tablet,delayed 20 mg PO PRN PRN 09/28/13 09/21/23 release sildenafil 100 mg tablet (Viagra) 50 mg PO PRN PRN 10/22/15 08/24/23 cholecalciferol (vitamin D3) 50 2,000 unit PO DAILY 06/28/17 09/21/23 mcg (2,000 unit) capsule (Vitamin D3) hydrocortisone-pramoxine 2.5 %-1 % 1 applic IA QID PRN rectal pain #4 09/23/19 09/21/23 (4g) rectal cream grams apixaban 5 mg tablet (Eliquis) 5 mg PO BID 05/29/20 09/21/23 acetaminophen 500 mg tablet 500 mg PO BID 10/02/21 09/21/23 tamsulosin 0.4 mg capsule 0.4 mg PO DAILY 05/22/23 09/21/23 albuterol sulfate 90 mcg/actuation 2 puff inhalation PRN PRN 08/24/23 09/21/23 aerosol inhaler shortness of breath or wheezing #8.5 grams budesonide-formoterol HFA 80 2 puff inhalation BID #10.2 grams 08/24/23 09/21/23 mcg-4.5 mcg/actuation aerosol inhaler (Symbicort) rosuvastatin See Rx Instructions .Route 08/24/23 09/21/23 DIRECTED oxybutynin chloride 10 mg 10 mg PO DAILY urgency #90 tabs 09/03/23 09/21/23 tablet,extended release 24 hr Previous Rx's Medication Instructions Recorded hydrocortisone-pramoxine 2.5 %-1 % 1 applic IA QID PRN rectal pain #4 09/23/19 (4g) rectal cream grams albuterol sulfate 90 mcg/actuation 2 puff inhalation PRN PRN 08/24/23 aerosol inhaler shortness of breath or wheezing #8.5 grams budesonide-formoterol HFA 80 2 puff inhalation BID #10.2 grams 08/24/23 mcg-4.5 mcg/actuation aerosol inhaler (Symbicort) oxybutynin chloride 10 mg 10 mg PO DAILY urgency #90 tabs 09/03/23 tablet,extended release 24 hr Allergies Allergy/AdvReac Type Severity Reaction Status Date / Time celecoxib [From Celebrex] AdvReac Severe Severe rash Unverified 09/21/23 09:28 ibuprofen [From Advil] AdvReac Intermediate upset Unverified 09/21/23 09:28 stomach General Stated Complaint: Chest Pain EVELYNE: 2 Review of Systems All systems reviewed & are unremarkable except as noted in HPI and below PFSH All Active Problems Chest pain of uncertain etiology (Acute) Asthma (Chronic) 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 s/p stenting Obstructive sleep apnea (Chronic) Hyperlipidemia (Chronic) H/O surgical procedure (Chronic) a. coronary stenting b. open cholecystectomy c. ERCP Medical History Atrial fibrillation CAD (coronary artery disease), [place] coronary artery status post stenting GERD (gastroesophageal reflux disease) Hyperlipidemia DIXIE (obstructive sleep apnea) Surgical History Cholecystectomy open Coronary Stent ERCP Hernia Repair, Incisional Laparoscopic Social History Smoking/Tobacco Use Status: Former Tobacco Use Quit Date: 10/05/1967 Smoking risk assessment performed?: Yes Alcohol Intake: former Drug use: Never Substance use type: does not use Housing: house Do you feel safe at home: Yes Do you feel safe in your relationship?: Yes Exam Narrative Exam Narrative: GENERAL APPEARANCE: Well-nourished, non-toxic, awake and alert, atraumatic, no acute distress. SKIN: Warm, pink, dry, intact, without rashes/lesions/ulcerations. HEAD: Normocephalic, atraumatic, normal hair distribution for gender/age. EYES: Pupils PERRLA, EOMs intact without nystagmus, normal conjunctiva, no exudates on lids/lashes. ENT: Nares patent, no circumoral cyanosis, no facial swelling NECK: Supple, trachea midline, painless cervical ROM. LUNGS/CHEST: Lungs CTA bilaterally - no rhonchi/rales/wheezes diffusely, non-labored respirations, normal A/P diameter, symmetrical expansion, no chest wall deformity HEART (CV/PV): Regular rate and rhythm without murmur, no peripheral edema, no JVD. ABDOMEN: Soft, non-distended, no guarding, LLQ tenderness without rebound tenderness or Rovsing's. MSK: Normal ROM, no swelling/deformity to bilateral UEs or LEs, moving all extremities without weakness, no cyanosis, spine midline without tenderness, normal curvature. NEURO: Mental Status AAOx4 - alert to person, place, time, events No facial droop, no forehead involvement. Motor: No focal weakness - strength 5/5 in bilateral UEs and LEs, proximal and distal, symmetric. Sensory: sensation intact to light touch globally. Gait normal: patient ambulated without ataxia into ED room. PSYCH: euthymic, cooperative, pleasant, appropriate speech Course Vital Signs Vital signs: Vital Signs Temperature 36.2 C L 09/21/23 09:20 Pulse 59 L 09/21/23 09:20 Respiratory Rate 16 09/21/23 09:20 Blood Pressure 167/83 H 09/21/23 09:20 Pulse Oximetry 100 09/21/23 09:20 Temperature 36.2 C L 09/21/23 09:20 Pulse 59 L 09/21/23 09:31 Pulse 60 09/21/23 09:31 Respiratory Rate 14 09/21/23 09:31 Respiratory Effort Normal, Non-Labored 09/21/23 09:33 Respiratory Depth Normal 09/21/23 09:33 Respiratory Pattern Normal 09/21/23 09:33 Blood Pressure 182/83 H 09/21/23 09:31 Blood Pressure Mean 120 09/21/23 09:31 Blood Pressure Position Sitting 09/21/23 09:20 Pulse Oximetry 100 09/21/23 09:31 Oxygen Delivery Method Room Air 09/21/23 09:20 Oxygen Flow Rate 0 09/21/23 09:20
[2023-09-21 09:46] LABS: Lactate 1.2 mmol/L (0.6-1.4)
[2023-09-21 09:47] LABS: Abs Immature Grans 0.02 10^3/uL (0.0-0.06); Absolute Basophil Count 0.04 10^3/uL (0.0-0.2); Absolute Eosinophil Count 0.26 10^3/uL (0.0-0.7); Absolute Lymphocyte Count 1.56 10^3/uL (1.2-3.4); Absolute Monocyte Count 0.68 10^3/uL (0.1-0.8); Absolute Neutrophil Count 3.58 10^3/uL (1.2-6.7); Basophils % 0.7; Eosinophils % 4.2; HCT 41.8 % (40.0-50.0); HGB 14.6 g/dL (13.5-17.5); Immature Grans % 0.3; Lymphocytes % 25.4; MCH 31.3 pg (27.0-33.0); MCHC 34.9 % (32.0-36.0); MCV 90 fL (80-95); MPV 9.5 fL (8.0-11.0); Monocytes % 11.1; Neutrophils % 58.3; Platelet Count 172 10^3/uL (130-400); RBC 4.67 10^6/uL (4.36-5.78); RDW 12.1 % (11.8-14.1); RDW-SD 39.5 fL; WBC 6.14 10^3/uL (4.4-10.8)
[2023-09-21 09:51] LABS: ESR 1 mm/hr (0-20)
[2023-09-21 10:10] LABS: ALT 31 U/L (16-63); AST 17 U/L (15-37); Albumin 3.4 g/dL (3.4-5.0); Alkaline Phosphatase 153 U/L (46-116); Anion Gap 6.1 mmol/L (3-11); BUN 19 mg/dL (7-18); Bilirubin, Total 0.6 mg/dL (0.2-1.0); C-Reactive Protein 0.26 mg/dL (0.0-0.3); CO2 28.9 mmol/L (21.0-32.0); CREATININE 1.1 mg/dL (0.70-1.30); Calcium 8.9 mg/dL (8.5-10.1); Chloride 107 mmol/L (98-107); Estimated GFR 69.57 (mL/min/1.73m2); Glucose 121 mg/dL (74-106); Lipase 29 U/L (16-77); Magnesium 1.9 mg/dL (1.8-2.4); NT-proBNP 91 pg/mL (<300); Potassium 4.4 mmol/L (3.5-5.1); Sodium 142 mmol/L (136-145); Total Protein 6.3 g/dL (6.4-8.2); Troponin I < 50 ng/L (<or=60)
[2023-09-21] MEDS: Normal Saline 500 ML IV (10:20)
--- NOTE | 2023-09-21 12:20 | DI.CT_ITS ---
Exam(s) CT ABDOMEN PELVIS W EXAM: CT ABDOMEN PELVIS W CLINICAL HISTORY: LLQ tenderness TECHNIQUE: Imaging Protocol: Axial computed tomography images with coronal and sagittal reformatted images were created and reviewed CONTRAST MATERIAL: Intravenous: Omnipaque 350 Contrast volume:100 mL Oral: No COMPARISON: CT CT ABDOMEN PELVIS W from 06/08/[address] CHEST PE CTA from 05/30/2023 FINDINGS: ABDOMEN: Lung Bases: Coronary artery calcifications and/or stents are present. Pulmonary fibrosis is seen in the lung bases. Liver: Normal density. No measurable mass. Portal, Superior Mesenteric, and Splenic Veins: Unremarkable. Gallbladder and Biliary Tract: The gallbladder is absent. No significant biliary ductal dilatation i s present. Pancreas: There is fatty atrophy of the pancreas. Spleen: Normal. Adrenals: No masses seen. Kidneys: Normal size, contour and axis. Bilateral nephrolithiasis. No obstructive uropathy. Left re nal cyst is stable. No follow-up is recommended. Abdominal Aorta: Abdominal portion non-dilated. Atherosclerosis. Bowel: There is diverticulosis of the colon there is no evidence of acute diverticulitis. The stomac h is incompletely distended limiting evaluation. No evidence of bowel wall thickening or obstruction . No evidence of appendicitis. Peritoneal Cavity: No ascites, collection or mesenteric inflammatory response. No free air. Lymph Nodes: Within normal limits. Bones: Within normal limits for the patient's age. Soft Tissues: There are small anterior abdominal wall defects consistent with tiny fat containing abd ominal wall hernias. There is a small fat containing umbilical hernia. There is a fat containing le ft inguinal hernia. PELVIS: Bladder: Symmetric distention, no gross wall thickening. Reproductive Organs: Prostate gland is enlarged. Lymph Nodes: Within normal limits. Bones: Within normal limits for the patient's age. IMPRESSION: 1. No acute abdominal or pelvic process. 2. Colonic diverticulosis without evidence of acute diverticulitis. 3. Small fat containing left inguinal hernia. 4. Bilateral nephrolithiasis. No obstructive uropathy. 5. Enlarged prostate gland. RADIATION DOSE DELIVERED: Total DLP DATA REPOSITORY: All CT scans at this facility are submitted to the National Radiology Data Registry (NRDR) Dose Index Registry (DIR) with the [employer] (ACR). RADIATION OPTIMIZATION: All CT scans at this facility use at least one of these dose optimization te chniques: automated exposure control; mA and/or kV adjustment per patient size (includes targeted exa ms where dose is matched to clinical indication); or iterative reconstruction.
[2023-09-21] MEDS: Omnipaque 350 MG/ML 500 ML BTL-Imaging package 100 ML IJ (12:24)
[2023-09-21] MEDS: Normal Saline - Diluent 50 ML VIAL IJ (12:29)
--- NOTE | 2023-09-21 12:32 | DI.RAD_ITS ---
Exam(s) XR CHEST 1V IN DI DEPT EXAM: XR CHEST 1V IN DI DEPT CLINICAL HISTORY: chest pain TECHNIQUE: 2D digital imaging was performed of the chest. One image was obtained. An AP view was ob tained. COMPARISON: CR,XR XR CHEST 2V PA LATERAL from 05/30/2023 FINDINGS: MEDIASTINUM: Normal. HEART: Normal. PULMONARY VASCULATURE: Normal. LUNGS: Clear. PLEURAL SPACE: No pleural effusion or pneumothorax. BONE:Within normal limits for the patient's age. OTHER FINDINGS:Normal. IMPRESSION: No acute pulmonary findings. DATA REPOSITORY: RADIATION DOSE DELIVERED:
[2023-09-21 13:09] LABS: Troponin I < 50 ng/L (<or=60)
== END 2023-09-21 13:49 | disposition home or self-care (01) ==
PROVIDERS: Emergency Provider Physician Assistant; PCP Internal Medicine Geriatric Medicine
DX: R07.9 Chest pain, unspecified (principal); R06.02 Shortness of breath; I45.10 Unspecified right bundle-branch block; I10 Essential (primary) hypertension; E78.5 Hyperlipidemia, unspecified; I48.91 Unspecified atrial fibrillation; Z79.01 Long term (current) use of anticoagulants; Z87.891 Personal history of nicotine dependence
CPT/HCPCS: 36415; 80053; 83690; 85652; 93005; 96360; 99285; 71045; 74177; 83605; 83735; 83880; 84484; 85025; 86140; 93010; 99284

== ENCOUNTER → 2023-12-31 13:54 | Outpatient (BNVA) | payer MEDICARE, BC, SELFPAY | PROVIDERS: PCP Internal Medicine Geriatric Medicine; Referring Provider Internal Medicine Geriatric Medicine; Visit Provider Urology | DX: N39.41 Urge incontinence (principal); R35.0 Frequency of micturition; R15.9 Full incontinence of feces | CPT/HCPCS: 99214 ==

== ENCOUNTER → 2024-03-08 10:16 | Outpatient (BNVA) | payer MEDICARE, BC, SELFPAY | PROVIDERS: PCP Internal Medicine Geriatric Medicine; Referring Provider Internal Medicine Geriatric Medicine; Visit Provider Urology | DX: N40.1 Benign prostatic hyperplasia with lower urinary tract symptoms (principal); N13.8 Other obstructive and reflux uropathy | CPT/HCPCS: 99214 ==

== ENCOUNTER 2024-04-11 12:31 | Outpatient (CLI) | payer MEDICARE, BC, SELFPAY ==
[2024-04-11 18:08] LABS: PSA, Diagnostic 1.7 ng/mL (<=6.5)
== END 2024-04-11 12:32 | disposition home or self-care (01) ==
LOC: LBO 12:32
PROVIDERS: PCP Internal Medicine Geriatric Medicine; Visit Provider Urology
DX: N40.1 Benign prostatic hyperplasia with lower urinary tract symptoms (principal); N13.8 Other obstructive and reflux uropathy
CPT/HCPCS: 36415; 99214; 84153

== ENCOUNTER 2024-07-11 01:16 | Outpatient (CLI) | payer MEDICARE, BC, SELFPAY ==
--- NOTE | 2024-07-11 | DI.CT_ITS ---
Exam(s) CT ABDOMEN PELVIS W EXAM: CT ABDOMEN PELVIS W CLINICAL HISTORY: UNINTENTIONAL WEIGHT LOSS R63.4 LT SIDED ABD PAIN R10.9 LLQ ABD PAIN. TECHNIQUE: Imaging Protocol: Axial computed tomography images with coronal and sagittal reformatted images were created and reviewed CONTRAST MATERIAL: Intravenous: Omnipaque-350 85cc Oral: Yes. Oral contrast was also administered for bowel opacification. COMPARISON: CT CT ABDOMEN PELVIS W from 09/21/2023 FINDINGS: VISUALIZED LUNG BASES: No nodules nor pleural effusions evident. ABDOMEN: There is no ascites. No free intraperitoneal air. No bowel obstruction. Oral contrast has reached the right-side of the colon at the time of image acquisition. LIVER: There are no focal hepatic lesions evident. There is some air-gas seen with in the common hep atic duct and within left lobe intrahepatic ducts as well as within the cystic duct remnant in this p atient has had prior cholecystectomy. There is no gross dilatation of intrahepatic ducts. CBD diame ter is minimally prominent but probably commensurate with post cholecystectomy status and patient's a ge. There is a duodenal diverticulum again noted on the medial wall of the duodenum adjacent to the insertion site of the CBD into the duodenum. GALLBLADDER/BILIARY: Gallbladder not seen and presumed to be surgically absent. CBD as above PANCREAS: No evidence of pancreatic mass nor dilatation of the pancreatic duct. SPLEEN: Spleen is not enlarged. No obvious intrasplenic lesions. Splenic and portal veins are paten t. ADRENALS: There are no significant adrenal masses. KIDNEYS:There is an exophytic cyst again noted off the inferior pole of the left kidney which measure s 2.3 by 2.2 cm and does not require further workup. No solid renal masses. There are 3 small nonob structive calculi in the left kidney again noted. There are no calculi in the right kidney. No hydr onephrosis evident. No hydroureter. No calculi seen in the nondistended urinary bladder. The bladd er is collapsed.. ABDOMINAL AORTA: Abdominal aorta is not enlarged. LYMPH NODES:There is no retroperitoneal nor paraaortic adenopathy. ABDOMINAL WALL: Small fat only containing midline umbilical hernia. There is a fat only containing l eft inguinal hernia again noted. GI: There is no evidence of bowel obstruction, free air, nor abscess. PELVIS: GI: No evidence of appendicitis.There is diverticulosis of the descending-left colon as well as the s igmoid but without evidence of acute diverticulitis. LYMPH NODES: There is no intrapelvic nor inguinal adenopathy. REPRODUCTIVE: Prostate size normal. Seminal vesicles unremarkable. URINARY BLADDER: Uniform thickening of the bladder wall noted which most probably related to under di stension at the bladder is predominately collapsed tear. OSSEOUS: No fractures and no significant osseous lesions. Mild anterolisthesis L5 upon S1 due to pars defect on the right side at this level. There does not a ppear to be a left-sided pars defect. IMPRESSION: 1. Again noted are multiple nonobstructive calculi in left kidney. No hydronephrosis nor hydroureter and no radiopaque calculi seen in the nondistended urinary bladder. 2. Left-sided colonic and sigmoid diverticulosis, but no evidence of acute diverticulitis. 3. Gallbladder is surgically absent. Some air-gas is noted in the CBD. Correlation with any history of prior ERCP is recommended. 4. Fat only containing left inguinal hernia again noted. RADIATION DOSE DELIVERED: 514.86mGy.cm Total DLP DATA REPOSITORY: All CT scans at this facility are submitted to the National Radiology Data Registry (NRDR) Dose Index Registry (DIR) with the [employer] (ACR). RADIATION OPTIMIZATION: All CT scans at this facility use at least one of these dose optimization te chniques: automated exposure control; mA and/or kV adjustment per patient size (includes targeted exa ms where dose is matched to clinical indication); or iterative reconstruction.
[2024-07-11] MEDS: Barium Sulfate 2% W/V-Berry Smoothie 450 ML BTL PO ×2 (09:19→09:20)
[2024-07-11 09:32] LABS: CREATININE 1.1 mg/dL (0.70-1.30); Estimated GFR 69.14 (mL/min/1.73m2)
[2024-07-11] MEDS: Omnipaque 350 MG/ML 100 ML BTL IJ (11:12)
[2024-07-11] MEDS: Normal Saline - Diluent 50 ML VIAL IJ (11:12)
== END 2024-07-11 01:36 ==
LOC: DI 01:17
PROVIDERS: PCP Internal Medicine Geriatric Medicine; Visit Provider Nurse Practitioner Gerontology
DX: R63.4 Abnormal weight loss (principal); R10.9 Unspecified abdominal pain
CPT/HCPCS: 74177; 82565; J3490

== ENCOUNTER 2024-09-23 12:36 | Outpatient (CLI) | payer MEDICARE, BC, SELFPAY ==
[2024-09-23 11:23] LABS: Anion Gap 6.3 mmol/L (3-11); BUN 21 mg/dL (7-18); CO2 30.7 mmol/L (21.0-32.0); CREATININE 1.3 mg/dL (0.70-1.30); Calcium 8.5 mg/dL (8.5-10.1); Chloride 107 mmol/L (98-107); Estimated GFR 56.58 (mL/min/1.73m2); Glucose 171 mg/dL (74-106); Potassium 3.7 mmol/L (3.5-5.1); Sodium 144 mmol/L (136-145)
== END 2024-09-23 12:37 | disposition home or self-care (01) ==
LOC: LBO 12:37
PROVIDERS: PCP Internal Medicine Geriatric Medicine; Visit Provider Registered Nurse
DX: I25.10 Atherosclerotic heart disease of native coronary artery without angina pectoris (principal)
CPT/HCPCS: 36415; 80048

== ENCOUNTER 2024-09-27 12:48 | Emergency (ER) | payer OTHER, SELFPAY ==
[2024-09-27 12:50] VITALS: BP 145/79; PULSE 68; RESP 18; TEMP 37.9; O2SAT 97
--- NOTE | 2024-09-27 13:00 | DI.CT_ITS ---
Exam(s) CT ABDOMEN PELVIS W EXAM: CT ABDOMEN PELVIS W CLINICAL HISTORY: LLQ pain and diarrhea. TECHNIQUE: Imaging Protocol: Axial computed tomography images with coronal and sagittal reformatted images were created and reviewed CONTRAST MATERIAL: Intravenous: Omnipaque 350 Contrast volume:75 ml Oral: no COMPARISON: CT CT ABDOMEN PELVIS W from 07/11/2024 FINDINGS: ABDOMEN and PELVIS: Lung Bases: No acute findings. Liver: Normal density. No suspicious mass. Gallbladder and biliary tract: No cholecystectomy. No biliary dilation. Pancreas: Moderate fatty infiltration.. No abnormal calcifications or inflammatory process. No evide nce of mass. Spleen: Normal. Kidneys: Normal size, contour and axis. Bilateral nonobstructing stones. No obstructive uropathy. Cyst lower pole left kidney. No suspicious masses seen. Adrenal glands: No masses seen. Vasculature: Abdominal aorta non-dilated. Soft tissues: Unremarkable. Bladder: No gross wall thickening. No calculi.No focal mass. Bowel: Diverticulum of the descending duodenum. No obstruction. Diverticulosis of the descending a nd sigmoid colon. No evidence of diverticulitis. Normal quantity of stool. Peritoneal cavity: No a scites. No focal collection. No mesenteric inflammatory response. No free air. Bones: Stable mild to moderate T8 compression fracture. Reproductive organs: Unremarkable. Lymph nodes: No pathologically enlarged lymph nodes. IMPRESSION:: No acute abnormality in the abdomen or pelvis. Diverticulosis. No evidence of diverticulitis. Bilateral nonobstructing renal calculi. RADIATION DOSE DELIVERED: 520.84mGy.cm Total DLP DATA REPOSITORY: All CT scans at this facility are submitted to the National Radiology Data Registry (NRDR) Dose Index Registry (DIR) with the [employer] (ACR). RADIATION OPTIMIZATION: All CT scans at this facility use at least one of these dose optimization te chniques: automated exposure control; mA and/or kV adjustment per patient size (includes targeted exa ms where dose is matched to clinical indication); or iterative reconstruction.
[2024-09-27 13:10] LABS: Lactate 0.8 mmol/L (0.6-1.4)
[2024-09-27 13:13] LABS: Abs Immature Grans 0.01 10^3/uL (0.0-0.06); Absolute Basophil Count 0.04 10^3/uL (0.0-0.2); Absolute Eosinophil Count 0.09 10^3/uL (0.0-0.7); Absolute Lymphocyte Count 1.75 10^3/uL (1.2-3.4); Absolute Monocyte Count 0.72 10^3/uL (0.1-0.8); Absolute Neutrophil Count 5.02 10^3/uL (1.2-6.7); Basophils % 0.5 %; Eosinophils % 1.2 %; HCT 42.2 % (40.0-50.0); HGB 14.7 g/dL (13.5-17.5); Immature Grans % 0.1 %; Lymphocytes % 22.9 %; MCH 32.3 pg (27.0-33.0); MCHC 34.8 % (32.0-36.0); MCV 93 fL (80-95); MPV 9.8 fL (8.0-11.0); Monocytes % 9.4 %; Neutrophils % 65.9 %; Platelet Count 161 10^3/uL (130-400); RBC 4.55 10^6/uL (4.36-5.78); RDW-SD 41.4 fL; WBC 7.63 10^3/uL (4.4-10.8)
[2024-09-27] MEDS: Ondansetron 4 MG/2 ML VIAL IVP (13:17)
[2024-09-27 13:30] LABS: ALT 26 U/L (16-63); AST 17 U/L (15-37); Albumin 3.5 g/dL (3.4-5.0); Alkaline Phosphatase 122 U/L (46-116); Anion Gap 4.5 mmol/L (3-11); BUN 17 mg/dL (7-18); Bilirubin, Total 1.25 mg/dL (0.2-1.0); CO2 28.5 mmol/L (21.0-32.0); CREATININE 1.2 mg/dL (0.70-1.30); Calcium 8.4 mg/dL (8.5-10.1); Chloride 109 mmol/L (98-107); Estimated GFR 62.29 (mL/min/1.73m2); Glucose 129 mg/dL (74-106); Lipase 24 U/L (<78); Magnesium 1.9 mg/dL (1.8-2.4); Potassium 4.4 mmol/L (3.5-5.1); Sodium 142 mmol/L (136-145); Total Protein 6.6 g/dL (6.4-8.2); Troponin I 5 ng/L (<or=76)
--- NOTE | 2024-09-27 13:30 | ED.GENADUL_ITS ---
Discharge Plan Disposition Patient Disposition: Home Condition: Stable Discharge Details Clinical Impression: Diarrhea, Atrial fibrillation, BPH w urinary obs/LUTS, CAD (coronary artery disease), Asthma, Obstructive sleep apnea, Hyperlipidemia, H/O surgical procedure Primary Care Provider: Abdulaziz Melchor ED Provider: Elana Childress Home Meds and New Rx's Prescriptions: No Action tamsulosin 0.4 mg capsule 0.4 mg PO DAILY Rx Instructions: decreasing dose from 0.8 to 0.4 mg rosuvastatin See Rx Instructions .ROUTE DIRECTED Rx Instructions: as directed; albuterol sulfate 90 mcg/actuation HFA aerosol inhaler 2 puff Inhalation PRN PRN (Reason: shortness of breath or wheezing) Qty: 8.5 12RF oxybutynin chloride 15 mg tablet extended release 24hr 15 mg PO DAILY Qty: 90 0RF hydrocortisone-pramoxine 2.5-1 % (4g) cream 1 applic TN QID PRN Qty: 4 2RF Eliquis 5 mg tablet 5 mg PO BID budesonide-formoterol 80-4.5 mcg/actuation HFA aerosol inhaler See Rx Instructions .ROUTE .COMPLEX Qty: 10.2 12RF Dose Instruction: INHALE 2 PUFFS BY MOUTH TWICE DAILY Rx Instructions: INHALE 2 PUFFS BY MOUTH TWICE DAILY nitroglycerin [Nitrostat] 0.4 MG tablet, sublingual 0.4 mg PO PRN PRN omeprazole 20 MG tablet,delayed release (DR/EC) 20 mg PO PRN PRN sildenafil [Viagra] 100 MG tablet 50 mg PO PRN PRN acetaminophen 500 mg Tablet 500 mg PO BID cholecalciferol (vitamin D3) [Vitamin D3] 2,000 UNIT capsule 2,000 unit PO DAILY furosemide 40 mg tablet 40 mg PO DAILY Patient Comments: TAKE 1 TABLET BY MOUTH TWICE DAILY metoprolol tartrate 25 mg tablet 25 mg PO DAILY Discharge Instructions Instructions: Diarrhea, Adult ED Additional Instructions: You were seen in the emergency department today for evaluation of diarrhea. In our department he had a full physical examination performed, had laboratory studies that were reassuring, and had a CT scan that did not show any specific abnormality to explain your symptoms. CT scans are not the best imaging study to look at the lining of the bowel and it is possible that you are experiencing a viral or bacterial infection. I recommend that you continue to maintain good hydration and nutrition, and we did discuss the brat diet and use of medications for pain and nausea. You need to follow-up at your scheduled appointment with your provider on Thursday, and should return to the emergency department sooner if you develop blood in your stool, fever, or sudden change or worsening of your abdominal pain. Thank you for allowing us to be part of your care. HPI General Mode of arrival: ambulatory . Date/Time Provider Initiated Documentation: 09/27/24 12:54 . Limitations to Documentation: no limitations . Information obtained by: patient and old records reviewed . HPI Narrative: HPI: This is a 78-year-old male patient with a past medical history significant for BPH, atrial fibrillation on Eliquis, history of ventral hernia, CAD, DIXIE, presenting for evaluation of abdominal pain and diarrhea. The patient reports that his symptoms have been present for about a week, he has numerous episodes of nonbloody stool per day. He has had nausea but no vomiting, and endorses discomfort in his left lower quadrant of his abdomen. He states that he has not had any recent hospitalizations, antibiotic use, or travel. No one else in his home has been sick with similar symptoms and he has not had any known exposures to unclean water or food sources. The patient reports that he has been able to eat and drink but has had decreased p.o. intake as he has more bowel movements when he does eat. He states that he has not had fevers at home, has otherwise been in his normal state of health. Exam: Gen: Awake and alert, in no apparent distress HEENT: Non-icteric sclera Neck: Supple Lungs: No apparent respiratory distress, normal respiratory effort. Lung sounds clear CV: Appears well perfused, heart with regular rate and rhythm Abdomen: Distended but soft, tender to palpation left lower quadrant with some wincing and voluntary guarding. No rigidity, rebound. MSK: Moves 4 extremities without apparent limitation in ROM Skin: Visualized skin without rashes, cyanosis. Neuro: Normal Gait, no obvious focal deficits or facial asymmetry. Speaks in full, clear sentences. Psych: Appropriate for situation. MDM: This is a 78-year-old male patient presenting for evaluation of diarrhea and left lower quadrant abdominal pain. My differential includes but is not limited to diverticulitis, bowel obstruction, gastroenteritis, viral or bacterial diarrhea, medication effect. Considered mesenteric ischemia, examination less concerning for aortic pathology. The patient is without significant risk factors for C. difficile, and does not have bloody diarrhea. I will provide the patient with a dose of Zofran for symptomatic management of nausea, and we will obtain laboratory studies to include CBC, CMP, lipase, lactate, UA. I will obtain a CT scan to better characterize any abnormalities. ED Course: I independently interpreted the laboratory studies, which show no significant leukocytosis, anemia, or thrombocytopenia. The chemistry panel is without evidence of electrolyte abnormality, kidney dysfunction, or liver injury. Lipase is low, as is his troponin. Lactate normal at 0.8. UA noninfectious but with microscopic hematuria, which the patient states he has had before. CT scan reveals no evidence of bowel obstruction, diverticulitis, or other concerning findings. I am most suspicious for gastroenteritis in this patient, recommended Zofran for assistance in maintaining hydration, discussed the brat diet and the patient has a scheduled appointment at the [place] on Thursday, and I encouraged him to discuss this visit and any symptoms that change, worsen, or persist. At this time, the patient has had a full medical evaluation and is safe for discharge to home. They are hemodynamically stable, ambulatory, and tolerating PO. They are understanding of the follow-up plan and return precautions. They left our facility without incident. Elana Childress MD Related Data Home Medications ?Medication ?Instructions ?Recorded ?Confirmed nitroglycerin 0.4 mg sublingual 0.4 mg PO PRN PRN 09/28/13 09/27/24 tablet (Nitrostat) omeprazole 20 mg tablet,delayed 20 mg PO PRN PRN 09/28/13 09/27/24 release sildenafil 100 mg tablet (Viagra) 50 mg PO PRN PRN 10/22/15 09/27/24 cholecalciferol (vitamin D3) 50 2,000 unit PO DAILY 06/28/17 09/27/24 mcg (2,000 unit) capsule (Vitamin D3) hydrocortisone-pramoxine 2.5 %-1 % 1 applic TN QID PRN rectal pain #4 09/23/19 09/27/24 (4g) rectal cream grams apixaban 5 mg tablet (Eliquis) 5 mg PO BID 05/29/20 09/27/24 acetaminophen 500 mg tablet 500 mg PO BID 10/02/21 09/27/24 tamsulosin 0.4 mg capsule 0.4 mg PO DAILY 05/22/23 09/27/24 albuterol sulfate 90 mcg/actuation 2 puff inhalation PRN PRN 08/24/23 09/27/24 aerosol inhaler shortness of breath or wheezing #8.5 grams rosuvastatin See Rx Instructions .Route 08/24/23 09/27/24 DIRECTED oxybutynin chloride 15 mg 15 mg PO DAILY urgency 12/31/23 09/27/24 tablet,extended release 24 hr incontinence #90 tabs budesonide-formoterol HFA 80 See Rx Instructions .Route 06/29/24 09/27/24 mcg-4.5 mcg/actuation aerosol .COMPLEX #10.2 grams inhaler furosemide 40 mg tablet 40 mg PO DAILY 09/27/24 09/27/24 metoprolol tartrate 25 mg tablet 25 mg PO DAILY 09/27/24 09/27/24 Previous Rx's ?Medication ?Instructions ?Recorded hydrocortisone-pramoxine 2.5 %-1 % 1 applic TN QID PRN rectal pain #4 09/23/19 (4g) rectal cream grams albuterol sulfate 90 mcg/actuation 2 puff inhalation PRN PRN 08/24/23 aerosol inhaler shortness of breath or wheezing #8.5 grams oxybutynin chloride 15 mg 15 mg PO DAILY urgency 12/31/23 tablet,extended release 24 hr incontinence #90 tabs budesonide-formoterol HFA 80 See Rx Instructions .Route 06/29/24 mcg-4.5 mcg/actuation aerosol .COMPLEX #10.2 grams inhaler Allergies Allergy/AdvReac Type Severity Reaction Status Date / Time celecoxib (From Celebrex) AdvReac Severe Severe rash Unverified 09/27/24 12:53 ibuprofen (From Advil) AdvReac Intermediate upset Unverified 09/27/24 12:53 stomach General Stated Complaint: Nausea/Vomit/Diar EVELYNE: 3 Course Vital Signs Vital signs: Vital Signs Temperature 37.9 C H 09/27/24 12:50 Pulse 68 09/27/24 12:50 Respiratory Rate 18 09/27/24 12:50 Blood Pressure 145/79 H 09/27/24 12:50 Pulse Oximetry 97 09/27/24 12:50 Temperature 37.9 C H 09/27/24 12:50 Temperature Source Temporal Artery Scan 09/27/24 12:50 Pulse 68 09/27/24 12:50 Respiratory Rate 18 09/27/24 12:50 Blood Pressure 145/79 H 09/27/24 12:50 Blood Pressure Position Sitting 09/27/24 12:50 Pulse Oximetry 97 09/27/24 12:50 Oxygen Delivery Method Room Air 09/27/24 12:50 Oxygen Flow Rate 0 09/27/24 12:50 Pain Level 4 09/27/24 12:50 Lab/Test Results Lab/Test Results: Laboratory Tests Range/Units 09/27/24 13:07 WBC (4.4-10.8) 10^3/uL 7.63 RBC (4.36-5.78) 10^6/uL 4.55 Hgb (13.5-17.5) g/dL 14.7 Hct (40.0-50.0) % 42.2 MCV (80-95) fL 93 MCH (27.0-33.0) pg 32.3 MCHC (32.0-36.0) % 34.8 RDW (11.8-14.1) % 12.0 Plt Count (130-400) 10^3/uL 161 MPV (8.0-11.0) fL 9.8 Immature Gran % % 0.1 Neutrophils % % 65.9 Lymphocytes % % 22.9 Monocytes % % 9.4 Eosinophils % % 1.2 Basophils % % 0.5 Nucleated RBC % (0.0-0.3) % 0.0 Absolute Neutrophils (1.2-6.7) 10^3/uL 5.02 Absolute Lymphocytes (1.2-3.4) 10^3/uL 1.75 Absolute Monocytes (0.1-0.8) 10^3/uL 0.72 Absolute Eosinophils (0.0-0.7) 10^3/uL 0.09 Absolute Basophils (0.0-0.2) 10^3/uL 0.04 VBG Lactate (0.6-1.4) mmol/L 0.8 Medical Decision Making Quality:SDOH Health Related Social Needs: No Data to Display PFSH All Active Problems (Updated 09/27/24 @ 14:50 by Elana Childress MD) Diarrhea (Acute) Asthma (Chronic) 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 s/p stenting Obstructive sleep apnea (Chronic) Hyperlipidemia (Chronic) H/O surgical procedure (Chronic) a. coronary stenting b. open cholecystectomy c. ERCP Medical History Atrial fibrillation CAD (coronary artery disease), [place] coronary artery status post stenting GERD (gastroesophageal reflux disease) Hyperlipidemia DIXIE (obstructive sleep apnea) Surgical History Cholecystectomy open Coronary Stent ERCP Hernia Repair, Incisional Laparoscopic Social History Smoking/Tobacco Use Status: Former Tobacco Use Quit Date: 10/05/1967 Smoking risk assessment performed?: Yes Alcohol Intake: former Drug use: Never Substance use type: does not use Housing: house Do you feel safe at home: Yes Do you feel safe in your relationship?: Yes
[2024-09-27] MEDS: Omnipaque 350 MG/ML 100 ML BTL 75 ML IJ (13:40)
[2024-09-27] MEDS: Normal Saline - Diluent 50 ML VIAL IJ (13:41)
[2024-09-27 14:02] VITALS: BP 132/75; PULSE 84; TEMP 37.7
[2024-09-27 14:22] LABS: Bilirubin Negative (Negative); Blood Trace-intact (Negative); Clarity Clear (Clear); Glucose Negative (Negative); Ketones Trace mg/dL (Negative); Leukocyte Esterase Negative (Negative); Nitrite Negative (Negative); Urobilinogen 0.2 mg/dL (Up to 0.2)
[2024-09-27 14:23] VITALS: BP 117/68; PULSE 62; TEMP 36.8; O2SAT 98
[2024-09-27 14:37] LABS: Bacteria Negative HPF (Negative); C & S Indicated? No; Casts Negative LPF (Negative); Crystals Negative HPF (Negative); Epithelial Cells Rare HPF (Negative); Mucus Trace (Negative); WBC 0-2 HPF (0-5)
== END 2024-09-27 15:02 | disposition home or self-care (01) ==
PROVIDERS: Emergency Provider Emergency Medicine; PCP Internal Medicine Geriatric Medicine
DX: R19.7 Diarrhea, unspecified (principal); R11.0 Nausea; R10.32 Left lower quadrant pain; K21.9 Gastro-esophageal reflux disease without esophagitis; I25.10 Atherosclerotic heart disease of native coronary artery without angina pectoris; E78.5 Hyperlipidemia, unspecified; I48.91 Unspecified atrial fibrillation; Z95.5 Presence of coronary angioplasty implant and graft; Z79.01 Long term (current) use of anticoagulants
CPT/HCPCS: 80053; 83690; 96374; 99285; 74177; 81003; 81015; 83605; 83735; 84484; 85025; J2405; J3490

== ENCOUNTER → 2024-11-02 09:47 | Outpatient (BNVA) | payer MEDICARE, BC, SELFPAY | PROVIDERS: PCP Internal Medicine Geriatric Medicine; Referring Provider Internal Medicine Geriatric Medicine; Visit Provider Physician Assistant Surgical | DX: R05.9 Cough, unspecified (principal); R06.00 Dyspnea, unspecified; R53.83 Other fatigue; U09.9 Post COVID-19 condition, unspecified | CPT/HCPCS: 36415; 99214 ==

== ENCOUNTER 2024-11-02 11:49 | Outpatient (REF) | payer MEDICARE, BC, SELFPAY ==
[2024-11-02 12:50] LABS: TSH (W/Ref FT4) 2.15 uIU/mL (0.36-3.74)
== END 2024-11-02 11:50 | disposition home or self-care (01) ==
LOC: LBN 11:49
PROVIDERS: PCP Internal Medicine Geriatric Medicine; Visit Provider Physician Assistant Surgical
DX: R53.83 Other fatigue (principal)
CPT/HCPCS: 84443

== ENCOUNTER → 2025-04-27 10:15 | Outpatient (BNVA) | payer MEDICARE, BC, SELFPAY | PROVIDERS: PCP Internal Medicine Geriatric Medicine; Referring Provider Internal Medicine Geriatric Medicine; Visit Provider Physician Assistant Surgical | DX: U09.9 Post COVID-19 condition, unspecified (principal) | CPT/HCPCS: 99214 ==